=== PATIENT | female | born 1975 | race Caucasian/White ===

== ENCOUNTER 2023-11-05 20:35 | Emergency (ER) | payer BC, SELFPAY ==
[2023-11-05 20:39] VITALS: BP 113/74; PULSE 73; RESP 16; TEMP 36.7; O2SAT 98
--- NOTE | 2023-11-05 21:58 | CRLHL7_ITS ---
For Patients: As a result of the Century Cures Act, medical imaging exams and procedure reports are released immediately into your electronic medical record. You may view this report before your referring provider. If you have questions, please contact your health care provider. Indication: Left mandibular pain and swelling Technique: CT of the neck following 58 mL Isovue 370 IV contrast. Comparison: None Findings: Brain and orbits: Visualized portions demonstrate no acute abnormality. Sinuses and mastoids: Visualized portions demonstrate no acute abnormality. 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 Oral cavity, floor of mouth, and base of tongue: No significant abnormality appreciated. Pharynx: No significant abnormality appreciated. Larynx/hypopharynx: No significant abnormality appreciated. Submandibular and parotid spaces: No significant abnormality appreciated. Thyroid space: No significant abnormality appreciated. Lymph nodes: No gross lymphadenopathy appreciated. Vascular structures: No significant abnormality appreciated. Bones: No significant abnormality appreciated. Upper chest: No significant abnormality appreciated. Impression: No acute abnormality appreciated. Please note that all CT scans at this facility use dose modulation, iterative reconstruction, and/or weight-based dosing when appropriate to reduce radiation dose to as low as reasonably achievable. Dictated by Juan Antonio Hernandez MD @ 11/05/2023 11:11:19 PM (Electronically Signed)
--- NOTE | 2023-11-05 22:00 | ED.GENADULT ---
HPI - General Adult General Chief complaint: Jaw Injury/Pain Stated complaint: L facial poss abscess and pain Time Seen by Provider: 11/05/23 21:38 History of Present Illness HPI narrative: This 47-year-old female comes in reporting pain in her throat and left mandibular and temp pillar mandibular region. She states that she had an abscess in her tonsil about 20 years ago and wonders of some like this is happening again. She did go to a different emergency department yesterday and states that she received an EpiPen and a dose of Xanax. She was discharged with a prescription for clindamycin and prednisone. She states that there were not any studies done otherwise. She has been taking these medicines but states that she is having worsening pain. She arrives here with normal vital signs. Related Data Home Medications ?Medication ?Instructions ?Recorded ?Confirmed No Known Home Medications 11/05/23 11/05/23 Allergies Allergy/AdvReac Type Severity Reaction Status Date / Time amoxicillin Allergy Rash Verified 11/05/23 20:46 doxycycline Allergy Verified 11/05/23 20:46 linezolid Allergy Verified 11/05/23 20:46 Review of Systems Status of ROS: Reports: 10 or more systems reviewed and unremarkable except as noted in History and below Narrative: Constitutional: No fevers, no weight gain or loss. Eyes: No discharge. No vision changes. HENT: No congestion. She reports some pain in her left neck an this extends toward her left ear. Cardiovascular: No chest pain, no palpitations. Respiratory: No shortness of breath, no wheezes, no cough. Gastrointestinal: No abdominal pain, no vomiting, no diarrhea. Genitourinary: No dysuria, no hematuria. Musculoskeletal: Normal range of motion. Skin: No rashes, no pruritis. Neurological: No dizziness, weakness, sensory change, speech change. Endo/Heme/Allergies: No bruising or bleeding. No polydipsia. Pysch: no suicidality, no anxiety, no insomnia. All other systems reviewed and are negative. Exam Narrative: Exam Narrative: Constitutional: Well-developed, well-nourished, no acute distress. HEENT: Normocephalic, atraumatic. Oropharynx appears normal without any sign of tonsillar hypertrophy or abscess formation. Tympanic membranes appear normal bilaterally. Neck: She states that it is harder for her to turn her head due to the pain in the left side of her neck around her ear. There are no palpable abnormalities when I examine her anterior neck. Heart: Regular. No murmurs. Normal rate. Intact distal pulses. Lungs: Clear to auscultation. No chest discomfort. No wheezes, rhonchi, or rales. Abdomen: Normal bowel sounds. Nontender. No rebound tenderness. Genitalia: Deferred. Back: No midline tenderness. Normal range of motion. Extremities: Normal range of motion. No injury. Skin: Intact. No rash. Warm. No erythema or pallor. Neurologic: No altered sensation. No weakness. Alert and oriented. Psychiatric: No suicidality. No anxiety or depression. No insomnia. Nursing notes and vitals signs are reviewed. Const: Vital Signs, click to edit/add: Vital Signs - 24 hr 11/05/23 20:39 Temperature 98.1 F Pulse Rate [Pulse Oximeter] 73 Respiratory Rate 16 Blood Pressure [Ri ght Upper Arm] 113/74 Pulse Oximetry 98 Oxygen Delivery Me thod Room Air Course Vital Signs Vital signs: Initial Vital Signs Temperature 98.1 F 11/05/23 20:39 Temperature Source Temporal Artery Scan 11/05/23 20:39 Pulse Rate 73 11/05/23 20:39 Respiratory Rate 16 11/05/23 20:39 Blood Pressure 113/74 11/05/23 20:39 Blood Pressure Mean 87 11/05/23 20:39 Blood Pressure Position Sitting 11/05/23 20:39 Pulse Oximetry 98 11/05/23 20:39 Oxygen Delivery Method Room Air 11/05/23 20:39 Vital Signs Temperature 98.1 F 11/05/23 20:39 Pulse Rate 73 11/05/23 20:39 Respiratory Rate 16 11/05/23 20:39 Blood Pressure 113/74 11/05/23 20:39 Pulse Oximetry 98 11/05/23 20:39 Oxygen Delivery Method Room Air 11/05/23 20:39 Temperature 98.1 F 11/05/23 20:39 Pulse Rate 73 11/05/23 20:39 Respiratory Rate 16 11/05/23 20:39 Blood Pressure 113/74 11/05/23 20:39 Pulse Oximetry 98 11/05/23 20:39 Oxygen Delivery Method Room Air 11/05/23 20:39 Medical Decision Making MDM Narrative Medical decision making narrative: This patient was at a different emergency room yesterday and was dissatisfied with the care given there. She was started on prednisone and clindamycin but states that there are really no studies done to indicate the need for these treatments. She is having worsening pain in her left neck extending toward her ear as described above. Her exam is quite normal. There does appear to be some anxiety component to her symptoms and I see in her past medical history that she has a history of PTSD. I did discuss lab and imaging options with the patient and she is very interested in having a CT scan to rule out any abnormality. I did order CT scan of her neck with IV contrast. Results of this test will come well after the end of my shift so the remaining ER physician will look after results. Most likely she is okay to be discharged home to continue her current treatments. Discharge Plan Discharge Clinical Impression: Neck pain Prescriptions: No Action No Known Home Medications
--- OUTSIDE RECORDS SUMMARY | 2023-11-05 23:01 | XMS_ITS ---
Author Organization [facility] Address [address] [place] [address] Care Team Providers Care Principal Network Engineer Name Role Phone Unavailable Unavailable Unavailable Surgery Details Not on file Complications Check Surgery Details section. Procedure Estimated Blood Loss Check Surgery Details section. Procedure Findings Check Surgery Details section. Procedure Specimens Taken Check Surgery Details section.
--- OUTSIDE RECORDS SUMMARY | 2023-11-05 23:01 | XMS_ITS | Clinical Summary ---
Author Organization [facility] Address [address] [place] [address] Care Team Providers Care Licensed Psychiatric Technician Name Role Phone Bela Jauregui APRN C.N.P. Primary Care Pro vider Source Comments Patient records contain information from all sites at [facility]. For routine questions regarding patient records, call [phone] during business hours, M-F 8:00 AM - 5:00 PM Central Time. Record requests for emergency care only can be directed to [phone] at any time.[facility] Allergies Active Allergy Reactions Criticality Noted Date Comments Duloxetine Hives (Reselect Reaction) 09/07/2021 Doxycycline Hives (Reselect Reaction) 08/22/2022 Linezolid Other (see comments) 07/22/2023 Father almost from it. Penicillins Hives (Reselect Reaction) 11/11/2008 Medications Medication Sig Dispensed Refills Start Date End Date Status acetaminophen (TYLENOL) 325 mg tablet Take 2 tablets by mouth every 4 (four) hours as needed. 12/08/2008 Active medical cannabis oil inhalation Inhale. THC component: CBD component: Active cyclobenzaprine (FLEXERIL) 10 mg tablet TAKE 1 TABLET (10 MG TOTAL) BY MOUTH 3 (THREE) TIMES A DAY NEEDED FOR MUSCLE SPASMS. 30 tablet 12/06/2022 Active fluticasone propionate (FLONASE) 50 mcg/actuation nasal spray Administer 1 spray into each nostril 2 (two) times a day. 16 g 06/02/2023 Active venlafaxine XR (Effexor XR) 75 mg 24 hr capsule Take 1 capsule (75 mg total) by mouth daily with breakfast. Total dose 112.5mg for two weeks (75mg+37.5mg) for two weeks, then increase 150mg 14 capsule 06/04/2023 Active Additional Information Patient taking differently:75 mg oral Daily with morning meal,On 09/09/23, patient states that she stopped the medications two days ago., Reported on 09/09/2023 buPROPion XL (WELLBUTRIN XL) 150 mg 24 hr tablet Take 1 tablet (150 mg total) by mouth every morning. 30 tablet 2 06/04/2023 Active ondansetron (ZOFRAN) 8 mg tablet Take 1 tablet (8 mg total) by mouth every 8 (eight) hours as needed for nausea or vomiting. 20 tablet 07/22/2023 Active hydrOXYzine (ATARAX) 25 mg tablet 08/06/2023 Active hydrocortisone (HYTONE) 2.5 % cream 08/06/2023 Active diphenhydrAMINE (BENADRYL) 50 mg capsule Take 50 mg by mouth every 6 (six) hours as needed. Active EPINEPHrine 0.3 mg/0.3 mL injection syringe Inject 0.3 mL (0.3 mg total) intramuscularly as needed for anaphylaxis for up to 10 days. Inject into the thigh. 1 each 1 09/09/2023 Active clindamycin (Cleocin) 300 mg capsule Take 1 capsule (300 mg total) by mouth 3 (three) times a day for 7 days. 21 capsule 11/03/2023 4 Active predniSONE (Deltasone) 50 mg tablet Take 1 tablet (50 mg total) by mouth daily for 3 days. 3 tablet 11/03/2023 4 Active Active Problems Problem Noted Date Diagnosed Date Mood Disorder 05/21/2022 Insomnia 04/10/2022 Posttraumatic Stress Disorder Prolonged 07/22/19 21 Fibromyalgia 06/13/2015 Encounters Date Type Department Care Team Description 11/03/2023 3:56 PM CDT - 11/03/2023 7:10 PM CDT [facility] [place] [facility] [address] [place] [phone] Tim Vogt M.D., M.B.A. Reaction Anaphylactic Personal History Discharge Disposition: Home or Self Care 11/03/2023 Nurse Triage Department of Family Medicine in [place], [place] [address] [place] [address] Toyin Blank M.S.N., R.N. Jaw Pain; Facial Pain (/) 10/28/2023 11:59 PM CDT - 10/29/2023 4:40 AM CDT [facility] [place] [facility] [address] [facility] [address] Salty Roque M.D. Pain Chest Atypical (Primary Dx); Cough Unspecified Type Discharge Disposition: Home or Self Care 09/09/2023 11:41 AM CDT - 09/09/2023 6:25 PM CDT [facility] [place] [facility] [address] [place] [address] Judith Darby M.D., M.B.A. Hives (Primary Dx); Swelling Face Discharge Disposition: Home or Self Care from Last 3 Months Immunizations Name Administration Dates Next Due 9vHPV 03/13/2023(Deferred: Other - patient no showed for appt today.),08/08/2022,08/24/2021 HepB Adult (HEPLISAV-B) 09/07/2022,08/08/2022 Influenza, Unspecified 07/22/2023(Deferred: Marcelle ent decision) Td (Adult), adsorbed 09/27/2004 Tdap 07/22/2023(Deferred: Patient decision),07/28/2018 influenza vaccine quad (FLUZONE/FLUARIX) (6 months and older)(PF) 04/25/2022 Family History Medical History Relation Name Comments Arthritis Father Serena Possibly due or early onset due to medications she was on Depression Father Serena Diabetes Father Serena Lost weight so considered pre Sleep apnea Father Serena Thyroid disease Father Serena Mama theough medictions Depression Mother Diabetes Mother Diabetes Paternal Grandmother Tyrone Wadei cecilia fathers side Clotting disorder Sister 1 Yen Depression Sister 1 Yen Obesity Sister 2 Aida Thyroid disease Sister 2 Aida Anesthesia problems Sister 3 [place] Clotting disorder Sister 3 [place] Post knee sx (assumed control related) Obesity Sister 3 [place] Thyroid disease Sister 3 Alexnadria Relation Name Status Comments Father Serena Mother Alive Paternal Grandmother Tyrone Sister 1 Yen Sister 2 Aida Sister 3 Alexandria Social History Tobacco Use Types Packs/Day Years Used Date Smoking Tobacco: Former Cigarettes Q uit: 04/15/2009 Smokeless Tobacco: Never Tobacco Cessation:Counseling Given: Not Answered Comments:Social when I did Alcohol Use Standard Drinks/Week Comments Never 0 (1 standard drink = 0.6 oz pur e alcohol) Humiliation, Afraid, Rape, and Kick questionnair e Answer Date Recorded Within the last year, have y ou been afraid of your partner or ex-partner? Patient declined 03/05/2022 Within the last year, have y ou been humiliated or emotionally abused in other ways by your partner or ex-partner? Patient declined 03/05/2022 Within the last year, have y ou been kicked, hit, slapped, or otherwise physically hurt by your partner or ex-partner? No 03/05/2022 Within the last year, have y ou been raped or forced to have any kind of sexual activity by your partner or ex-partner? No 03/05/2022 Social Connection and Isolat ion Panel [NHANES] Answer Date Recorded In a typical week, how many times do you talk on the phone with family, friends, or neighbors? Once a week 03/05/2022 How often do you get togethe r with friends or relatives? Once a week 03/05/2022 How often do you attend chur or yarsanism services? More than 4 times per year 03/05/2022 Do you belong to any clubs o r organizations such as christian groups, unions, fraternal or athletic groups, or school groups? No 03/05/2022 How often do you attend meet ings of the clubs or organizations you belong to? Never 03/05/2022 Are you , , di vorced, , never , or living with a partner? Living with partner 03/05/2022 AUDIT-C Answer Date Recorded Q1: How often do you have a drink containing alc ohol? Never 03/05/2022 Average Number of Drinks Not on file 022 Frequency of Binge Drinking Not on file 02/14 Overall Financial Resource Strain (CARDIA) Answe r Date Recorded How hard is it for you to pa y for the very basics like food, housing, medical care, and heating? Patient declined 03/10/2023 PHQ-2 Answer Date Recorded PHQ-2 Score 6 06/04/2023 [facility] - Occupational Stress Questionnaire Answer Date Recorded Do you feel stress - tense, restless, nervous, or anxious, or unable to sleep at night because your mind is troubled all the time - these days? Very much 03/05/2022 Exercise Vital Sign Answer Date Recorde d On average, how many days pe r week do you engage in moderate to strenuous exercise (like a brisk walk)? Patient declined On average, how many minutes do you engage in exercise at this level? Patient declined 03/10/2023 Hunger Vital Sign Answer Date Recorded Within the past 12 months, y ou worried that your food would run out before you got the money to buy more. Patient declined Within the past 12 months, t he food you bought just didn't last and you didn't have money to get more. Patient declined PRAPARE - Transportation Answer Date Re corded In the past 12 months, has l ack of transportation kept you from medical appointments or from getting medications? No 02/14 In the past 12 months, has l ack of transportation kept you from meetings, work, or from getting things needed for daily living? No 03/10/2023 Depression Answer Date Recor ded PHQ-9 Total Score (max 27) 18 06/04 Nutrition Answer Date Recorded On average, how many serving s of fruits and vegetables do you eat per day (serving size is equal to 1 cup or approximately the size of a tennis ball)? 3-5 03/10/2023 Dental Answer Date Recorded Dental: Regular Dentist No 08/22/19 22 Employment Answer Date Recorded Employment status Temporarily disabled Housing Stability Answer Date Recorded What is your living situation today? [facility] 03/10/2023 Education Answer Date Recorded What is the highest level of school you have completed or the highest degree you have received? Associate degree: occupational, technical, or vocational program 03/05/2022 Sex and Gender Information Value Date Recorded Sex Assigned at Female 08/18/2021 11:37 AM CDT Gender Identity Female 03/14/2020 12:38 PM [employer] Sexual Orientation Not on file Last Filed Vital Signs Vital Sign Reading Time Taken Comments Blood Pressure 104/64 11/03/2023 6:45 PM CDT Pulse 83 11/03/2023 7:00 PM CDT Temperature 36.7 ??C (98.1 ??F) 11/03/2023 6:00 PM CD T Respiratory Rate 16 11/03/2023 4:36 PM CDT Oxygen Saturation 98% 11/03/2023 7:00 PM CDT Inhaled Oxygen Concentration - - Weight 57 kg (125 lb 10.6 oz) 11/03/2023 4:38 PM CDT Height 157 cm (5' 1.81) 11/03/2023 4:38 PM CDT Body Mass Index 23.12 11/03/2023 4:38 PM CDT Plan of Treatment Upcoming Encounters Date Type Department Care Team (Latest Contact Info) Description 01/07/2024 1:00 PM CDT Comprehensive Visit Department of Allergy and Immunology in [address] [phone] Ilya Barajas M.D. [address] [place] [address] Discharge Disposition: Home or Self Care Health Maintenance Due Date Last Done Comments CT Colonography 1974 Cologuard 1974 Colonoscopy 1974 Colorectal Cancer Screening 1974 FIT 1974 Cervical Cancer Screening 09/07/20222021, 08/24/2021, 08/24/2021, Additional history exists Mammogram 11/03/2023 11/02/2022, 07/0 08/2022, 10/02/2021, Additional history exists Influenza Vaccine (#1) 2024 04/25/2022 COVID-19 Vaccine ( season) 2024 04/25/2022, 05/09/2021, 08/24/2020, Additional history exists Postponed from 12/14/2022 (Patient Refused) Lipid (Cholesterol) Screening 09/29/2025 09/29/2020 Fasting Glucose for Diabetes Screening 10/28/2026 10/29/2023, 09/09/2023, 07/20/2023, Additional history exists DTaP,Tdap,and Td Vaccines (2 - Td or Tdap) 07/28/2028 07/28/2018, 09/27/2004 HIV Screening Completed 08/24/2021, 0304/2018 (Performed elsewhere) Hepatitis B Vaccines Completed 09/07/2022, 08/09/19 23 Depression Screening (Annual PHQ-2) Completed 06/04/2023 Pneumococcal vaccine (0-64 years) Aged Out No longer eligible based on patient's age to complete this topic Procedures Procedure Name Priority Date/Time Associated Diagnosis Comments CRITICAL CARE Routine 11/03/2023 4:27 PM CDT TRYPTASE, S STAT 11/03/2023 4:13 PM CDT TROPONIN T, 2H/6H REFLEX, 5TH GEN, P Timed 10/29/2023 2:32 AM CDT DX CHEST AP OR PA AND LATERAL 2 VIEWS RAD - Semiurgent (Fast; most ED patients; some inpatients) 10/29/2023 1:03 AM CDT TROPONIN T, BASELINE, 5TH GEN, P STAT 10/29/2023 12:12 AM CDT COMPREHENSIVE METABOLIC PANEL, S/P STAT 10/29/2023 12:12 AM CDT CBC WITH DIFFERENTIAL, B STAT 10/29/2023 12:12 AM CDT ECG STAT 10/29/2023 12:[address] CHEST ANGIOGRAM AND PULMONARY ARTERIES WITH IV CONTRAST RAD - Semiurgent (Fast; most ED patients; some inpatients) 09/09/2023 1:41 PM CDT DX CHEST AP OR PA AND LATERAL 2 VIEWS RAD - Semiurgent (Fast; most ED patients; some inpatients) 09/09/2023 12:27 PM CDT D-DIMER, P STAT 09/09/2023 12:08 PM CDT NT-PRO B-TYPE NATRIURETIC PEPTIDE (BNP), S STAT 09/09/2023 12:08 PM CDT TROPONIN T, 5TH GEN, P STAT 09/09/2023 12:08 PM CDT COMPREHENSIVE METABOLIC PANEL, S/P STAT 09/09/2023 12:08 PM CDT CBC WITH DIFFERENTIAL, B STAT 09/09/2023 12:08 PM CDT ECG Routine 09/09/2023 12:07 PM CDT MR BREAST BILATERAL WITHOUT AND WITH IV CONTRAST RAD - Routine (most inpatients and all outpatients) 11/02/2022 4:08 PM CDT Abnormal Mammogram HIV-1/-2 AG AND AB SCREEN, PLASMA Routine 08/24/2021 11:22 AM CDT Screening For Venereal Disease THINPREP W/HPV CO-TEST SCREEN Routine 08/24/2021 11:09 AM CDT Screening For Venereal Disease Pap Smear Examination LIPID PANEL, S Routine 09/29/2020 12:04 PM CDT Screening Lipid from Last 3 Months or Most Recently Relevant to Health Maintenance Results * Critical Care (11/03/2023 4:27 PM CDT) Narrative Tim Vogt M.D., M.B.A. - 11/03/2023 4:27 PM CDT Tim Vogt M.D., M.B.A. ? 11/03/2023 ??4:27 PM Critical Care Performed by: Tim Vogt M.D., M.B.A. Authorized by: Tim Vogt M.D., M.B.A. ?? Critical care provider statement: Critical care total time (minutes): 50 MC Critical care was necessary to treat orprevent imminent or life-threatening deterioration of the following conditions: Anaphylaxis versus angioedema. Critical care was time spent personally by me on the following activities: blood draw for specimens, review of old charts, pulse oximetry, re-evaluation of patient's condition, examination of patient, evaluation of patient's response to treatment and documenting in the patient chart Tim Vogt M.D., M.B.A. PROCEDURE/ MINOR SURGICAL ORDERABLES * Tryptase (11/03/2023 4:13 PM CDT) Tryptase, S 9.1 <11.5 ng/mL 11/05/2023 3:14 PM CDT [facility] Blood (Blood, Venous) 11/03/2023 4:13 PM CDT 11/05/2023 8:56 AM CDT Tim Vogt M.D., M.B.A. LAB BLOOD ADD-ON [facility] [address] [place] [address] [facility] [address] [place] [address] * Troponin T, 2 Hour with 6 Hour Reflex, 5th Gen (10/29/2023 2:32 AM CDT) Troponin T, 2 hr, 5th gen 6 <=10 ng/L 10/29/2023 2:54 AM CDT NPR[facility] 2H Delta -1 ng/L 10/29/2023 2:54 AM CDT NPRG Comment:6 hour collection no t indicated. 2H Delta Interp Not Changing 10/29/2023 2:54 AM CDT NPRG Blood 10/29/2023 2:32 AM CDT 10/29/2023 2:42 AM CDT Soft Results Interface LAB BLOOD TROPONI N [facility] [address] [place] [address], [facility] NPRG [place] [address] [place] [address] * DX Chest AP or PA and Lateral 2 Views (10/29/2023 1:03 AM CDT) Only the most recent of2 resultswithin the time period is included. Anatomical Region Laterality Modality Chest, Thoracic RST LOS, Tho racic ARZ LOS, Thoracic FLA LOS N/A Digital Radiography Impressions 10/29/2023 1:11 AM CDT Comparison 09/09/2023. Negative for acute cardiopulmonary abnormality. Narrative 10/29/2023 1:11 AM CDT EXAM: DX CHEST AP OR PA AND LATERAL 2 VIEWS Procedure Note Fabricio Burns M.D. - 10/29/2023 EXAM: DX CHEST AP OR PA AND LATERAL 2 VIEWS IMPRESSION: Comparison 09/09/2023. Negative for acute cardiopulmonary abnormality. Salty Roque M.D. IMG DIAGNOSTIC IMAGI NG PROCEDURES * Troponin T, Baseline with 2 Hour/6 Hour Reflex Biomarker Panel (10/29/2023 12:12 AM CDT) Troponin T, Baseline, 5th gen 7 <=10 ng/L 10/29/2023 1:08 AM CDT NPRG Blood (Blood, Venous) 10/29/2023 12:12 AM CDT 10/29/2023 12:54 AM CDT Salty Roque M.D. LAB BLOOD TROPONIN [facility] [address] [place] [address], [facility] NPRG [place] [address] [place] [address] * CBC with Differential, Blood (10/29/2023 12:12 AM CDT) Only the most recent of2 resultswithin the time period is included. Hemoglobin 12.9 11.6 - 15.0 g/dL 10/29/2023 1:01 AM CDT NPRG Hematocrit 38.7 35.5 - 44.9 % 10/29/2023 1:01 AM CDT NPRG Erythrocytes 4.25 3.92 - 5.13 x10(12)/L 10/29/2023 1:01 AM CDT NPRG MCV 91.1 78.2 - 97.9 fL 10/29/2023 1:01 AM CDT NPRG RBC Distrib Width 12.3 12.2 - 16.1 % 10/29/2023 1:01 AM CDT NPRG Platelet Count 237 157 - 371 x10(9)/L 10/29/2023 1:01 AM CDT NPRG Leukocytes 7.4 3.4 - 9.6 x10(9)/L 10/29/2023 1:01 AM CDT NPRG Neutrophils 3.83 1.56 - 6.45 x10(9)/L 10/29/2023 1:01 AM CDT NPRG Lymphocytes 2.84 0.95 - 3.07 x10(9)/L 10/29/2023 1:01 AM CDT NPRG Monocytes 0.58 0.26 - 0.81 x10(9)/L 10/29/2023 1:01 AM CDT NPRG Eosinophils 0.12 0.03 - 0.48 x10(9)/L 10/29/2023 1:01 AM CDT NPRG Basophils <0.04 0.01 - 0.08 x10(9)/L 10/29/2023 1:01 AM CDT NPRG Blood (Blood, Venous) 10/29/2023 12:12 AM CDT 10/29/2023 12:54 AM CDT Salty Roque M.D. LAB BLOOD ADD-ON [facility] [address] [place] [address], [place] NPRG [facility] [address] [place] [address] * Comprehensive Metabolic Panel (10/29/2023 12:12 AM CDT) Only the most recent of2 resultswithin the time period is included. Potassium, P 3.9 3.6 - 5.2 mmol/L 10/29/2023 1:13 AM CDT NPRG Sodium, P 141 135 - 145 mmol/L 10/29/2023 1:13 AM CDT NPRG Chloride, P 106 98 - 107 mmol/L 10/29/2023 1:13 AM CDT NPRG Bicarbonate, P 26 22 - 29 mmol/L 10/29/2023 1:13 AM CDT NPRG Anion Gap, P 9 7 - 15 10/29/2023 1:13 AM CDT NPRG BUN (Blood Urea Nitrogen), P 16 6 - 21 mg/dL 10/29/2023 1:13 AM CDT NPRG Creatinine 0.69 0.59 - 1.04 mg/dL 10/29/2023 1:13 AM CDT NPRG Estimated GFR (eGFR) >90 >=60 mL/min/BS A 10/29/2023 1:13 AM CDT NPRG Comment: Estimated GFR calculated using the 2020 CKD_EPI creatinine equation. Calcium, Total, P 9.5 8.6 - 10.0 mg/dL 10/29/2023 1:13 AM CDT NPRG Glucose, P 92 70 - 140 mg/dL 10/29/2023 1:13 AM CDT NPRG Protein, Total, P 6.7 6.3 - 7.9 g/dL 10/29/2023 1:13 AM CDT NPRG Albumin, P 4.3 3.5 - 5.0 g/dL 10/29/2023 1:13 AM CDT NPRG Aspartate Aminotransferase (AST), P 18 8 - 43 U/L 10/29/2023 1:13 AM CDT NPRG Alkaline Phosphatase, P 79 35 - 104 U/L 10/29/2023 1:13 AM CDT NPRG Alanine Aminotransferase (ALT), P 13 7 - 45 U/L 10/29/2023 1:13 AM CDT NPRG Bilirubin, Total, P <0.2 0.0 - 1.2 mg/dL 10/29/2023 1:13 AM CDT NPRG Blood (Blood, Venous) 10/29/2023 12:12 AM CDT 10/29/2023 12:54 AM CDT Salty Roque M.D. LAB BLOOD ADD-ON Performing Organization Address [place]/[facility] Co de Phone Number [facility] [address] [place] [address], [facility] NPRG [facility] [address] [place] [address] * ECG 12 Lead (10/29/2023 12:07 AM CDT) Only the most recent of2 resultswithin the time period is included. Ventricular Rate ECG/Min 68 BPM MUSE [place] Interval 148 ms MUSE QRSD Interval 92 ms MUSE QT Interval 398 ms MUSE QTC Interval 423 ms MUSE P [place]itt 55 degrees MUSE R [place] 25 degrees MUSE T Wave Dewitt 35 degrees MUSE 10/29/2023 12:0 7 AM CDT 10/29/2023 12:12 AM CDT Impressions MUSE - 10/29/2023 12:12 AM CDT Sinus rhythm Low anterior forces Nonspecific ST and T wave abnormality When compared with ECG of 09-Sep-2023 12:07, Anterior forces have decreased Reviewed by OSCAR Pretty Narrative Procedure Note Jose Rich M.D., M.P.H. - 10/29/2023 IMPRESSION: Sinus rhythm Low anterior forces Nonspecific ST and T wave abnormality When compared with ECG of 09-Sep-2023 12:07, Anterior forces have decreased Reviewed by OSCAR Pretty Salty Roque M.D. ECG ORDERABLES Performing Organization Address [facility]/ZIP Co de Phone Number MUSE NA * CT Chest Angiogram and Pulmonary Arteries with IV Contrast (09/09/2023 1:41 PM CDT) Anatomical Region Laterality Modality Chest, Cardiovascular RST LO S, Thoracic ARZ LOS, Thoracic FLA LOS N/A Computed Tomography 09/09/2023 1:38 PM CDT Impressions 09/09/2023 2:11 PM CDT 1. Negative for acute pulmonary embolism. 2. No pneumothorax or suspicious pulmonary consolidation. Narrative 09/09/2023 2:11 PM CDT EXAM: CT CHEST ANGIOGRAM AND PULMONARY ARTERIES WITH IV CONTRAST Including 3D image postprocessing with or without AI assistance. COMPARISON: Chest radiograph same day. FINDINGS: Adequate opacification of the pulmonary arterial tree without evidence of acute pulmonary embolism. Heart size within normal limits. No pleural or pericardial effusion. Thoracic aorta normal diameter. No evidence of mediastinal, hilar, axillary lymphadenopathy on angiographic phase imaging. Minimal gravity dependent atelectasis. No pneumothorax or suspicious pulmonary consolidation. Upper abdomen without acute abnormality on angiographic phase imaging. No acute fracture or destructive osseous abnormality. Procedure Note Scottie Wesley M.D. - 09/09/2023 EXAM: CT CHEST ANGIOGRAM AND PULMONARY ARTERIES WITH IV CONTRAST Including 3D image postprocessing with or without AI assistance. COMPARISON: Chest radiograph same day. FINDINGS: Adequate opacification of the pulmonary arterial tree without evidence ofacute pulmonary embolism. Heart size within normal limits. No pleural or pericardial effusion.Thoracic aorta normal diameter. No evidence of mediastinal, hilar, axillary lymphadenopathy onangiographic phase imaging. Minimal gravity dependent atelectasis. No pneumothorax or suspiciouspulmonary consolidation. Upper abdomen without acute abnormality on angiographic phase imaging. No acute fracture or destructive osseous abnormality. IMPRESSION: 1. Negative for acute pulmonary embolism. 2. No pneumothorax or suspicious pulmonary consolidation. Judith Darby M.D., M.B.A. IMG CT [place] OCEDURES * NT-Pro B-Type Natriuretic Peptide (BNP) (09/09/2023 12:08 PM CDT) NT-Pro BNP 111 <=141 pg/mL 09/09/2023 12:40 PM CDT NPRG Comment: NT-proBNP values less than 300 pg/mL have a 99% negative predictive value for excluding acute congestive heart failure. A cutoff of 1200 pg/mL for patients with an eGFR<60 yields a diagnostic sensitivity and specificity of 89% and 72% for acute congestive heart failure. NT-proBNP values greater than 450 pg/mL are consistent with CHF in adults under 50 years of age. Blood (Blood, Venous) 09/09/2023 12:08 PM CDT 09/09/2023 12:13 PM CDT Judith Darby M.D., M.B.A. LAB BLOOD ADD-ON [facility] [address] [place] [address], [facility] [address] [place] [address] * (ABNORMAL) D-Dimer (09/09/2023 12:08 PM CDT) D-Dimer, P 790(H) <=500 ng/mL FEU 09/09/2023 12:34 PM CDT NPR Comment: ----ADDITIONAL INFORMATION---- D-dimer values less than or equal to 500 ng/mL fibrinogen equivalent units (FEU) may be used in conjunction with clinical pre-test probability to exclude deep vein thrombosis (DVT) and/or pulmonary embolism (PE). Blood (Blood, Venous) 09/09/2023 12:08 PM CDT 09/09/2023 12:13 PM CDT Judith Darby M.D., M.B.A. LAB BLOOD ADD-ON [facility] [address] [place] [address], [facility] [address] [place] [address] * Troponin T, 5th Generation (09/09/2023 12:08 PM CDT) Troponin T, 5th gen <6 <=10 ng/L 09/09/2023 12:40 PM CDT NPRG Blood (Blood, Venous) 09/09/2023 12:08 PM CDT 09/09/2023 12:13 PM CDT Judith Darby M.D., M.B.A. LAB BLOOD ADD-ON [facility] [address] [place] [address], [facility] NPRG [facility] [address] [place] [address] * MR Breast Bilateral without and with IV Contrast (11/02/2022 4:08 PM CDT) Anatomical Region Laterality Modality Breast, Breast Imaging RST L OS, Breast Imaging ARZ LOS, Breast Imaging FLA LOS Bilateral Magnetic Resonance 11/02/2022 4:38 PM CDT Impressions 11/05/2022 8:36 AM CDT No MR findings of malignancy. RECOMMENDATION: ??Annual Screening Mammogram Recommend annual screening mammography. Consider evaluation in the [facility] with Dr. Manjit Hernandez. ASSESSMENT: ??BI-RADS: 2: Benign. Narrative 11/05/2022 8:36 AM CDT EXAM: ??MR BREAST BILATERAL WITHOUT AND WITH IV CONTRAST INDICATION: ??Elevated risk screening HISTORY: ??46-year-old asymptomatic woman with family history of breast cancer. HORMONAL STATUS: ??Premenopausal COMPARISON: ??Mammography and ultrasound 08/26/2015, 10/02/2021, 10/23/2021, 10/17/2022. No previous breast MR. TECHNIQUE: ??Dynamic enhanced protocol using IV contrast administration with T1 and T2-weighted images and CAD image analysis. FIBROGLANDULAR TISSUE: ??d. Extreme fibroglandular tissue. ?? BACKGROUND PARENCHYMAL ENHANCEMENT: ??d. Marked FINDINGS: RIGHT BREAST: ??Scattered small benign cysts. No suspicious mass or enhancement in the right breast. Prominent background parenchymal enhancement. RIGHT AXILLA: ??No right axillary lymphadenopathy. ?? LEFT BREAST: ??Scattered small benign cysts. No suspicious mass or enhancement in the left breast. Prominent background parenchymal enhancement. LEFT AXILLA: ??No left axillary lymphadenopathy. ?? CHEST WALL: ??No internal mammary lymphadenopathy. ?? Procedure Note Bela Nicholson M.D. - 11/05/2022 EXAM: MR BREAST BILATERAL WITHOUT AND WITH IV CONTRAST INDICATION: Elevated risk screening HISTORY: 46-year-old asymptomatic woman with family history of breastcancer. HORMONAL STATUS: Premenopausal COMPARISON: Mammography and ultrasound 08/26/2015, 10/02/2021, 10/23/2021,10/17/2022. No previous breast MR. TECHNIQUE: Dynamic enhanced protocol using IV contrast administrationwith T1 and T2-weighted images and CAD image analysis. FIBROGLANDULAR TISSUE: d. Extreme fibroglandular tissue. BACKGROUND PARENCHYMAL ENHANCEMENT: d. Marked FINDINGS: RIGHT BREAST: Scattered small benign cysts. No suspicious mass orenhancement in the right breast. Prominent background parenchymal enhancement. RIGHT AXILLA: No right axillary lymphadenopathy. LEFT BREAST: Scattered small benign cysts. No suspicious mass orenhancement in the left breast. Prominent background parenchymal enhancement. LEFT AXILLA: No left axillary lymphadenopathy. CHEST WALL: No internal mammary lymphadenopathy. IMPRESSION: No MR findings of malignancy. RECOMMENDATION: Annual Screening Mammogram Recommend annual screening mammography. Consider evaluation in the [facility] with Dr. Manjit Hernandez. ASSESSMENT: BI-RADS: 2: Benign. Bela Jauregui APRN, C.N.P. [facility] [place] P ROCEDURES * HIV-1/-2 Ag and Ab Screen, Plasma (08/24/2021 11:22 AM CDT) HIV Ag/Ab Screen, P Negative Negative 08/25/2021 1:33 PM CDT [facility] Comment: Negative result does not rule out HIV infection. If exposure to HIV infection occurred <14 days ago, contact the laboratory to request addition of HIV-1 RNA detection / quantification test. HIV-1 p24 Ag Screen, P Negative Negative 08/25/2021 1:33 PM CDT [facility] Comment: Negative result does not rule out HIV infection. If exposure to HIV infection occurred <14 days ago, contact the laboratory to request addition of HIV-1 RNA detection / quantification test. HIV-1 Ab Screen, P Negative Negative 2021 1:33 PM CDT [facility] Comment: Negative result does not rule out HIV infection. If exposure to HIV infection occurred <14 days ago, contact the laboratory to request addition of HIV-1 RNA detection / quantification test. HIV-2 Ab Screen, P Negative Negative 2021 1:33 PM CDT [facility] Comment: Negative result does not rule out HIV infection. If exposure to HIV infection occurred <14 days ago, contact the laboratory to request addition of HIV-1 RNA detection / quantification test. Blood (Blood, Venous) 08/24/2021 11:22 AM CDT 08/24/2021 5:50 PM CDT Orquidea Dawn APRN C.N.P., M.S.N. LAB MICROBIOLOGY - BLOOD ORDERABLES [facility] [address] [place] [phone], [facility] [address] [address] * (ABNORMAL) ThinPrep w/HPV Co-Test Screen (08/24/2021 11:09 AM CDT) (A) 08/31/2021 11:33 AM CDT [facility] Report electronically signed by Navin Zheng MD I verify that I have examined all relevant slides/material s for the specimen(s) and rendered or confirmed the diagnosis. (A) 08/31/2021 11:33 AM CDT [facility] Gross Description Received specimen in a ThinPrep vial.(A) 08/31/2021 11:33 AM CDT [facility] Pap Test Source Cervical/Endoce rvical(A) 08/31/2021 11:33 AM CDT [facility] Hormone Therapy/Contracep tives None/Not known(A) 08/31/2021 11:33 AM CDT [facility] Interpretation Cervical/Endoce rvical ??(ThinPrep): Satisfactory for Evaluation Partially obscuring inflammation Epithelial Cell Abnormality Atypical squamous cells of undetermined significance High Risk HPV: ??Positive Positive for High Risk HPV by nucleic acid amplification. Positive for one or more of the following High Risk HPV types: 16, 18, 31, 33, 35, 39, 45, 51, 52, 56, 58, 59, 66, and 68. HPV Type 16: ??Positive HPV Type 18/45: ??Negative (A) 08/31/2021 11:33 AM CDT [facility] Varies (Cervix/Endocerv ix) 08/24/2021 11:09 AM CDT 08/25/2021 6:14 AM CDT Orquidea Dawn APRN, C.N.P., M.S.N. LAB PAP PATHDX ORDERABLES [facility] [address] [place] [address], [facility] [address] [place] [address] * (ABNORMAL) Lipid Panel (09/29/2020 12:04 PM CDT) Cholesterol, Total 205(H) mg/dL 2020 4:14 PM CDT [facility] Comment: ----REFERENCE VALUE---- Desirable: < 200 Borderline high: 200 - 239 High: > or = 240 Triglycerides 88 mg/dL 09/29/2020 4:14 PM CDT [facility] Comment: ----REFERENCE VALUE---- Normal: <150 Borderline high: 150-199 High: 200-499 Very high: > or =500 Cholesterol, HDL 55 >=50 mg/dL 09/30/19 4:14 PM CDT [facility] Calculated LDL 132(H) mg/dL 09/29/2020 4:14 PM CDT [facility] Comment: ----REFERENCE VALUE---- Desirable: <100 Above Desirable: 100-129 Borderline high: 130-159 High: 160-189 Very high: > or =190 Cholesterol, Non-HDL, Calculated 150 mg/dL 09/29/2020 4:14 PM CDT [facility] Comment: ----REFERENCE VALUE---- Desirable: <130 Above Desirable: 130-159 Borderline high: 160-189 High: 190-219 Very high: > or =220 Blood (Blood, Venous) 09/29/2020 12:04 PM CDT 09/29/2020 3:35 PM CDT Bela Jauregui APRN, C.N.P. LAB BLOOD ADD-ON [facility] [address] [place] [address], [place] NPRG [facility] [address] [place] [address] from Last 3 Months or Most Recently Relevant to Health Maintenance Care Teams Licensed Psychiatric Technician Relationship Specialty Start Date End Date Bela Jauregui APRN, C.N.P. [address] [place] [phone] PCP - General Family Medicine 08/11/20
--- OUTSIDE RECORDS SUMMARY | 2023-11-05 23:01 | XMS_ITS | Referral Summary ---
Author Organization [facility] Address [address] [place] [address] Care Team Providers Care Booth Manager Name Role Phone Bela Jauregui APRN C.N.P. Primary Care Pro vider Source Comments Patient records contain information from all sites at [facility]. For routine questions regarding patient records, call [phone] during business hours, M-F 8:00 AM - 5:00 PM Central Time. Record requests for emergency care only can be directed to [phone] at any time.[facility] Encounters Date Type Department Care Team Description 11/03/2023 3:56 PM CDT - 11/03/2023 7:10 PM CDT [facility] [place] [facility] [address] [place] [phone] Tim Vogt M.D., M.B.A. Reaction Anaphylactic Personal History Discharge Disposition: Home or Self Care 11/03/2023 Nurse Triage Department of Family Medicine in [place], [place] [address] [place] [phone] Toyin Blank M.S.N., R.N. Jaw Pain; Facial Pain (/) 10/28/2023 11:59 PM CDT - 10/29/2023 4:40 AM CDT [facility] [place] [facility] [address] [place] [phone] Salty Roque M.D. Pain Chest Atypical (Primary Dx); Cough Unspecified Type Discharge Disposition: Home or Self Care 09/09/2023 11:41 AM CDT - 09/09/2023 6:25 PM CDT [facility] [place] [facility] [address] [facility] [address] Judith Darby M.D., M.B.A. Hives (Primary Dx); Swelling Face Discharge Disposition: Home or Self Care from Last 3 Months Allergies Active Allergy Reactions Criticality Noted Date [...] Stress Disorder Prolonged 07/22/19 21 Fibromyalgia 06/13/2015 Immunizations Name Administration Dates Next Due 9vHPV 03/13/2023(Deferred: Other - patient no showed for appt today.),08/08/2022,08/24/2021 HepB Adult (HEPLISAV-B) 09/07/2022,08/08/2022 Influenza, Unspecified 07/22/2023(Deferred: Marcelle ent decision) Td (Adult), adsorbed 09/27/2004 Tdap 07/22/2023(Deferred: Patient decision),07/28/2018 influenza vaccine quad (FLUZONE/FLUARIX) (6 months and older)(PF) 04/25/2022 Social History Tobacco Use Types Packs/Day Years [...] week 03/05/2022 How often do you attend [facility] or nondenominational services? More than 4 times per year 03/05/2022 Do you belong to any clubs o r organizations such as zoroastrian groups, unions, fraternal or athletic groups, or [...] Answer Date Recorded PHQ-2 Score 6 06/04/2023 [facility] of Occupat ional Health - Occupational Stress Questionnaire Answer Date Recorded [...] Date Recorded Dental: Regular Dentist No 08/22/19 Employment Answer Date Recorded Employment status Temporarily disabled Housing Stability Answer Date Recorded What is your living situation today? I have a [facility] place to live 03/10/2023 Education Answer Date Recorded What is the highest level of school you have completed or the highest degree you have received? Associate degree: occupational, technical, or vocational program 03/05/2022 Sex and Gender Information Value Date Recorded Sex Assigned at Female 08/18/2021 11:37 AM CDT Gender Identity Female 03/14/2020 12:38 PM HOME ORGANIZER Sexual Orientation Not on file Last Filed [...] Visit Department of Allergy and Immunology in [place], [place] [address] [place] [phone] Ilya Barajas M.D. [address] [place] [phone] Discharge Disposition: Home or Self Care Procedures Procedure Name Priority Date/Time Associated Diagnosis [...] 9.1 <11.5 ng/mL 11/05/2023 3:14 PM CDT [facility] Blood (Blood, Venous) 11/03/2023 4:13 PM CDT 11/05/2023 8:56 AM CDT Tim Vogt M.D., M.B.A. LAB BLOOD ADD-ON [facility] [address] [place] [address] [facility] [address] [address] * Troponin T, 2 Hour with 6 [...] Soft Results Interface LAB BLOOD TROPONI N [facility] [address] [place] [address], [facility] NPRG [facility] [address] [place] [address] * DX Chest AP or PA and [...] CDT Salty Roque M.D. LAB BLOOD TROPONIN [facility] [address] [place] [address], [facility] NPRG [facility] [address] [place] [address] * CBC with Differential, Blood (10/29/2023 12:12 [...] CDT Salty Roque M.D. LAB BLOOD ADD-ON [facility] [address] [place] [address], [place] NPRG [facility] [address] [place] [address] * Comprehensive Metabolic Panel (10/29/2023 12:12 AM [...] M.D. LAB BLOOD ADD-ON Performing Organization Address City/[facility] Co de Phone Number [facility] [address] [place] [address], [place] NPRG [facility] [address] [place] [address] * ECG 12 Lead (10/29/2023 12:07 AM CDT) Only the most recent of2 resultswithin the time period is included. Ventricular Rate ECG/Min 68 BPM MUSE MA Interval 148 ms MUSE QRSD Interval 92 ms MUSE QT Interval 398 ms MUSE QTC Interval 423 ms MUSE P [place] 55 degrees MUSE R [place] 25 degrees MUSE T Wave [place] 35 degrees MUSE 10/29/2023 12:0 7 AM [...] Roque M.D. ECG ORDERABLES Performing Organization Address City/[facility]/ZIP Co de Phone Number MUSE NA * [...] consolidation. Judith Darby M.D., M.B.A. IMG CT MA OCEDURES * NT-Pro B-Type Natriuretic Peptide (BNP) [...] Judith Darby M.D., M.B.A. LAB BLOOD ADD-ON [facility] [address] [place] [address], [facility] [address] [place] [address] * (ABNORMAL) D-Dimer (09/09/2023 12:08 PM CDT) D-Dimer, P 790(H) <=500 ng/mL FEU 09/09/2023 12:34 PM CDT [facility] Comment: ----ADDITIONAL INFORMATION---- D-dimer values less than or equal to 500 ng/mL fibrinogen equivalent units (FEU) may be used in conjunction with clinical pre-test probability to exclude deep vein thrombosis (DVT) and/or pulmonary embolism (PE). Blood (Blood, Venous) 09/09/2023 12:08 PM CDT 09/09/2023 12:13 PM CDT Judith Darby M.D., M.B.A. LAB BLOOD ADD-ON [facility] [address] [place] [address], [facility] [address] [place] [address] * Troponin T, 5th Generation (09/09/2023 12:08 PM CDT) Troponin T, 5th gen <6 <=10 ng/L 09/09/2023 12:40 PM CDT [facility] Blood (Blood, Venous) 09/09/2023 12:08 PM CDT 09/09/2023 12:13 PM CDT Judith Darby M.D., M.B.A. LAB BLOOD ADD-ON [facility] [address] [place] [address], [facility] NPRG [facility] [address] [place] [address] * MR Breast Bilateral without and with [...] BI-RADS: 2: Benign. Bela Jauregui APRN, C.N.P. IM MRI P ROCEDURES * HIV-1/-2 Ag and [...] C.N.P., M.S.N. LAB MICROBIOLOGY - BLOOD ORDERABLES [facility] [address] [place] [address], [facility] [place] [address] * (ABNORMAL) ThinPrep w/HPV Co-Test Screen (08/24/2021 [...] 18/45: ??Negative (A) 08/31/2021 11:33 AM CDT [facility] Varies (Cervix/Endocerv ix) 08/24/2021 11:09 AM CDT 08/25/2021 6:14 AM CDT Orquidea Dawn APRN, C.N.P., M.S.N. LAB PAP PATHDX ORDERABLES [facility] [address] [place] [address], [facility] [address] [place] [address] * (ABNORMAL) Lipid Panel (09/29/2020 12:04 PM CDT) Cholesterol, Total 205(H) mg/dL 2020 4:14 PM CDT [facility] Comment: ----REFERENCE VALUE---- Desirable: < 200 Borderline high: 200 - 239 High: > or = 240 Triglycerides 88 mg/dL 09/29/2020 4:14 PM CDT [facility] Comment: ----REFERENCE VALUE---- Normal: <150 Borderline high: 150-199 High: 200-499 Very high: > or =500 Cholesterol, HDL 55 >=50 mg/dL 09/30/19 21 4:14 PM CDT [facility] Calculated LDL 132(H) [...] Bela Jauregui APRN, C.N.P. LAB BLOOD ADD-ON [facility] [address] [place] [address], [place] NPRG [facility] [address] [place] [address] from Last 3 Months or Most Recently Relevant to Health Maintenance Care Teams Booth Manager Relationship Specialty Start Date End Date Bela Jauregui APRN, C.N.P. [address] [place] [phone] PCP - General Family Medicine 08/11/20
--- OUTSIDE RECORDS SUMMARY | 2023-11-05 23:02 | XMS_ITS | Encounter Summary ---
Author Organization [facility] Address [address] [place] [address] Care Team Providers Care Film Or Videotape Editor Name Role Phone Bela Jauregui APRN, C.N.P. Primary Care Pro vider Encounter Details Date Type Department Care Team (Late st Contact Info) Description 07/20/2023 Orders Only Urgent Care, [facility], in [place], [place] [address] [place] [phone] Edna Mccann APRN, C.N.P. [address] [place] [phone] Fatigue (Primary Dx) Social History Tobacco Use Types Packs/Day Years Used Date Smoking Tobacco: Former Cigarettes Q uit: 04/15/2009 Smokeless Tobacco: Never Comments:Social when I did Alcohol Use Standard [...] 03/05/2022 How often do you attend chur ch or yarsanism services? More than 4 times per year 03/05/2022 Do you belong to any clubs o r organizations such as adventist groups, unions, fraternal or athletic groups, or [...] Answer Date Recorded PHQ-2 Score 6 06/04/2023 [facility] of Occupat ional Health - Occupational Stress [...] your living situation today? I have a [facility] place to live 03/10/2023 Education Answer Date Recorded What is the highest level of school you have completed or the highest degree you have received? Associate degree: occupational, technical, or vocational program 03/05/2022 Sex and Gender Information Value Date Recorded Sex Assigned at Female 08/18/2021 11:37 AM CDT Gender Identity Female 03/14/2020 12:38 PM BAT PERSON Sexual Orientation Not on file documented as of this encounter Plan of Treatment Upcoming Encounters Date Type Department Care Team (Latest Contact Info) Description 01/07/2024 1:00 PM CDT Comprehensive Visit Department of Allergy and Immunology in [place], [place] [address] [place] [phone] Ilya Barajas M.D. [facility] [place] [phone] Discharge Disposition: Home or Self Care documented as of this encounter Visit Diagnoses Diagnosis Fatigue- Primary documented in this encounter Additional Health Concerns Infection Onset Date Last Indicated Resolved Time COVID19 Pending 07/20/2023 07/20/2023 07/20/2023 4 :25 PM CDT Assessment Noted Time PHQ-9 Depression Total Score: 18 024 11:33 AM BAT PERSON documented as of this encounter Care Teams Film Or Videotape Editor Relationship Specialty Start Date End Date Bela Jauregui APRN, C.N.P. [address] [place] [phone] PCP - General Family Medicine 08/11/20 documented as of this encounter
--- OUTSIDE RECORDS SUMMARY | 2023-11-05 23:02 | XMS_ITS | Encounter Summary ---
Author Organization [facility] Address [address] [place] [address] Care Team Providers Care Straight Edger Name Role Phone Bela Jauregui APRN, C.NLaPLa Primary Care Pro vider Reason for Referral * Medication Prior Authorization - Closed Specialty Diagnoses / Procedures Referred By Contac t Referred To Contact Judith Darby M.D., M.B.A. [address] [place] [phone] Referral ID Status Reason Start Date Expiration Date Visits Re quested Visits Authorized [id number] Closed 1 1 * Outpatient (Routine) - Authorized Specialty Diagnoses / Procedures Referred By Contac t Referred To Contact Emergency Medicine Diagnoses Judith Yu M.D., M.B.A. [address] [place] [phone] [facility] Referral ID Status Reason Start Date Expiration Date V isits Requested Visits Authorized [id number] Authorized 09/09/2023 03/10/2025 1 1 Reason for Visit * Reason Comments Numbness Patient presents wit h numbness of the lips, which is currently only in the of the left area of the lower lip. Patient also has swelling on the (R) side of her face, which has been occurring intermittently for months. Encounter Details Date Type Department Care Team (Late st Contact Info) Description 09/09/2023 11:41 AM CDT - 09/09/2023 6:25 PM CDT Emergency [facility] [address] [place] [phone] Judith Darby M.D., M.B.A. [address] [place] [phone] Hives (Primary Dx); Swelling Face Discharge Disposition: Home or Self Care Social History Tobacco Use Types Packs/Day Years [...] week 03/05/2022 How often do you attend [facility] or yarsanism services? More than 4 times per year 03/05/2022 Do you belong to any clubs o r organizations such as sabianist groups, unions, fraternal or athletic groups, or [...] Answer Date Recorded PHQ-2 Score 6 06/04/2023 [facility] - Occupational Stress [...] your living situation today? I have a [facility] place to live 03/10/2023 Education Answer Date Recorded What is the highest level of school you have completed or the highest degree you have received? 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 - 09/09/2023 5:59 PM CDT Today you were seen for swelling of your face. I believe that this is due to hives. Fortunately your workup was reassuring here. I have referred you to an logistics account manager. You should receive a phone call to schedule this follow-up appointment. I also recommend that you follow with your primary care provider within the next 1-2 weeks. Continue to use Benadryl at home. I have also sent a prescription to prednisone which you will takefor the next 4 days. Finally I sent a prescription for an EpiPen which you should take if you starthaving swelling of your tongue, difficulty breathing or difficulty swallowing. * Attachments The following attachments cannot be sent through Care Everywhere. * Hives (Samoan) documented in this encounter Medications at Time of Discharge Medication Sig Dispensed Refills Start Date End Date acetaminophen (TYLENOL) 325 mg tablet Take 2 tablets by mouth every 4 (four) hours as needed. 12/08/2008 EPINEPHrine 0.3 mg/0.3 mL injection syringe Inject 0.3 mL (0.3 mg total) intramuscularly as needed for anaphylaxis for up to 10 days. Inject into the thigh. 1 each 1 09/09/2023 medical cannabis oil inhalation Inhale. THC component: CBD component: buPROPion XL (WELLBUTRIN XL) 150 mg 24 hr tablet Take 1 tablet (150 mg total) by mouth every morning. 30 tablet 2 06/04/2023 cyclobenzaprine (FLEXERIL) 10 mg tablet TAKE 1 TABLET (10 MG TOTAL) BY MOUTH 3 (THREE) TIMES A DAY NEEDED FOR MUSCLE SPASMS. 30 tablet 12/06/2022 diphenhydrAMINE (BENADRYL) 50 mg capsule Take 50 mg by mouth every 6 (six) hours as needed. fluticasone propionate (FLONASE) 50 mcg/actuation nasal spray Administer 1 spray into each nostril 2 (two) times a day. 16 g 06/02/2023 hydrocortisone (HYTONE) 2.5 % cream 08/06/2023 hydrOXYzine (ATARAX) 25 mg tablet 08/06/2023 ondansetron (ZOFRAN) 8 mg tablet Take 1 tablet (8 mg total) by mouth every 8 (eight) hours as needed for nausea or vomiting. 20 tablet 07/22/2023 venlafaxine XR (Effexor XR) 75 mg 24 hr capsule Take 1 capsule (75 mg total) by mouth daily with breakfast. Total dose 112.5mg for two weeks (75mg+37.5mg) for two weeks, then increase 150mg 14 capsule 06/04/2023 predniSONE (DELTASONE) 50 mg tablet Take 1 tablet (50 mg total) by mouth daily for 4 days. 4 tablet 09/10/2023 09/14/2023 documented as of this encounter ED Notes * Judith Darby M.D., M.B.A. - 09/09/2023 11:43 AM CDT SUBJECTIVE CHIEF COMPLAINT/REASON FOR VISIT No chief complaint on file. HISTORY OF PRESENT ILLNESS Daily Chen is a 47 y.o. female with history PTSD and fibromyalgia who is presenting with facial swelling and numbness. Unfortunately the patient has been dealing with hives and swelling since May. Initially it was starting on her body but within the last month she is started to have hives and swelling on her face. Where she is swelling migrates. Yesterday she had significant swelling on the left side of her face. She did provide pictures that showed periorbital swelling. That seemed to resolve and then she started to develop swelling on the right side of her face around 430 this morning. When she is developing the swelling she gets a paresthesia. Yesterday it was in the left side and today it was on the right side but is now starting drift back to the left side again. She did try Benadryl this morning but has not seen any relief. She is able to swallow okay right now. She does have occasional shortness of breath but this has been going on for months. She does explainthat she was recently in [place] visiting family and just flew back last week. A couple daysago she had worsening shortness of breath and she has also had intermittent chest pain. Additionally today she is having pain on the right side of her face that feels like an earache. REVIEW OF SYSTEMS Constitutional: Negative for chills and fever. HENT: Positive for facial swelling. Negative for congestion, rhinorrhea, sore throat and trouble swallowing. Facial swelling, post nasal drainage Eyes: Negative for visual disturbance. Respiratory: Positive for cough (on and off) and shortness of breath (exertional for months). Cardiovascular: Positive for chest pain (on and off for months). Gastrointestinal: Positive for nausea and vomiting. Negative for abdominal pain and diarrhea (loosestools). Skin: hives Neurological: Positive for numbness (face). OBJECTIVE Initial Vitals Temperature 09/09/23 1131 36.6 ??C Pulse Rate 09/09/23 1131 76 Heart Rate -- Resp Rate 09/09/23 1131 16 Blood Pressure 09/09/23 1131 116/79 SpO2 09/09/23 1131 100 % Pain Score 09/09/23 1132 5 - Moderate pain PHYSICAL EXAMINATION Constitutional: Female, slightly anxious but not in severe distress HENT: Head: Normocephalic and atraumatic. Nose: Nose normal. Mouth/Throat: Oropharynx is clear and moist. Mucous membranes are moist. Significant swelling on the right side of her face including her periorbital region, cheek and upper lip, left side of the face does not have swelling, there is no erythema Eyes: Conjunctivae are normal. Pupils are equal, round, and reactive to light. Right eye exhibits no discharge. Left eye exhibits no discharge. Cardiovascular: Normal rate and regular rhythm. Pulmonary/Chest: Effort normal. No respiratory distress. She has no wheezes. She has no rhonchi. Musculoskeletal: General: No deformity. Neurological: Alert, no gross neurologic deficit Skin: Skin is warm and dry. Psychiatric: She has a normal mood and affect. ASSESSMENT/PLAN Daily Chen is a 47 y.o. female who is presenting with paresthesia and swelling of her right face. Patient's vital signs are fairly unremarkable. Specifically she was saturating 100% on room air. Physical examination does show swelling along the right side of her face but she appears dino protecting her airway, there is no tongue swelling and she was swallowing without difficulty. Differential diagnosis includes anaphylaxis, allergic reaction, urticaria. As far as her chest pain and shortness of breath this could represent ACS, pulmonary embolus, pneumonia, cardiomegaly. Will do an initial screening test but since it has been going on for some time this may require additional outpatient workup. Patient's workup was fairly unremarkable including a normal troponin, EKG and chest x-ray. She was unable to be ruled out for pulmonary embolus given her recent prolonged travel. Her D-dimer did return elevated so I proceeded with a CT angio. CT angio showed no evidence of pulmonary embolus. Patient was watched for numerous hours in the emergency department and had no worsening of her swelling. She did get another dose of Benadryl. We would multiple conversations about epinephrine but she wished avoid this if possible which I thought was very reasonable given that she has having no worsening of symptoms and had no airway compromise Ultimately the patient felt well and was discharged in stable condition with a referral to Allergy given these persistent hives and swelling. ED Course as of 09/09/232008September 09, 2023 1307 I re-evaluated the patient. She is continuing to have swelling. We talked about doing some cold compress. I also went through her results and the plan to do a CT scan she is agreeable. 1650 Reexamine the patient again and I think she was having some improvement in her swelling at this time. Final Diagnoses: as of 09/09/232008 Hives Swelling Face Judith Darby M.D., M.B.A. 09/09/232009 documented in this encounter Plan of Treatment Upcoming Encounters Date Type Department Care Team (Latest Contact Info) Description 01/07/2024 1:00 PM CDT Comprehensive Visit Department of Allergy and Immunology in [address] [phone] Ilya Barajas M.D. [address] [place] [phone] Discharge Disposition: Home or Self Care Scheduled Referrals Name Type Priority Associated Diagnoses Order Schedule POST ED VISIT Allergy and Immunology Outpatient Referral Routine Hives Expected: 09/09/2023, Expires: 12/09/2024 documented as of this encounter Procedures Procedure Name Priority Date/Time Associated Diagnosis Comments CT CHEST ANGIOGRAM AND PULMONARY ARTERIES WITH IV CONTRAST RAD - Semiurgent (Fast; most ED patients; some inpatients) 09/09/2023 1:41 PM CDT DX CHEST AP OR PA AND LATERAL 2 VIEWS RAD - Semiurgent (Fast; most ED patients; some inpatients) 09/09/2023 12:27 PM CDT NT-PRO B-TYPE NATRIURETIC PEPTIDE (BNP), S STAT 09/09/2023 12:08 PM CDT D-DIMER, P STAT 09/09/2023 12:08 PM CDT CBC WITH DIFFERENTIAL, B STAT 09/09/2023 12:08 PM CDT TROPONIN T, 5TH GEN, P STAT 09/09/2023 12:08 PM CDT COMPREHENSIVE METABOLIC PANEL, S/P STAT 09/09/2023 12:08 PM CDT ECG Routine 09/09/2023 12:07 PM CDT documented in this encounter Results * CT Chest Angiogram and Pulmonary Arteries [...] consolidation. Judith Darby M.D., M.B.A. IMG CT WI OCEDURES * DX Chest AP or PA and Lateral 2 Views (09/09/2023 12:27 PM CDT) Anatomical Region Laterality Modality Chest, Thoracic RST LOS, Tho racic ARZ LOS, Thoracic FLA LOS N/A Digital Radiography Impressions 09/09/2023 12:32 PM CDT No acute airspace disease. Narrative 09/09/2023 12:32 PM CDT EXAM: DX CHEST AP OR PA AND LATERAL 2 VIEWS COMPARISON: 12/25/2021 FINDINGS: The lungs are clear of opacity or effusion. No pneumothorax. Cardiac silhouette is normal. No acute bony abnormality. Procedure Note Balwinder Byrd D.O. - 09/09/2023 EXAM: DX CHEST AP OR PA AND LATERAL 2 VIEWS COMPARISON: 12/25/2021 FINDINGS: The lungs are clear of opacity or effusion. No pneumothorax.Cardiac silhouette is normal. No acute bony abnormality. IMPRESSION: No acute airspace disease. Judith Darby M.D., M.B.A. IMG DIAGN OSTIC IMAGING PROCEDURES * (ABNORMAL) D-Dimer (09/09/2023 12:08 PM CDT) D-Dimer, P 790(H) <=500 ng/mL FEU 09/09/2023 12:34 PM CDT NPRG Comment: ----ADDITIONAL INFORMATION---- D-dimer values less than or equal to 500 ng/mL fibrinogen equivalent units (FEU) may be used in conjunction with clinical pre-test probability to exclude deep vein thrombosis (DVT) and/or pulmonary embolism (PE). Blood (Blood, Venous) 09/09/2023 12:08 PM CDT 09/09/2023 12:13 PM CDT Judith Darby M.D., M.B.A. LAB BLOOD ADD-ON [facility] [address] [place] [address], [facility] NPRG [address] [place] [address] * NT-Pro B-Type Natriuretic Peptide (BNP) (09/09/2023 [...] Judith Darby M.D., M.B.A. LAB BLOOD ADD-ON [facility] [address] [place] [address], [facility] NPRG [address] [place] [address] * Troponin T, 5th Generation (09/09/2023 12:08 PM CDT) Troponin T, 5th gen <6 <=10 ng/L 09/09/2023 12:40 PM CDT NPR Blood (Blood, Venous) 09/09/2023 12:08 PM CDT 09/09/2023 12:13 PM CDT Judith Darby M.D., M.B.A. LAB BLOOD ADD-ON [facility] [address] [place] [address], [place] NPRG [facility] [address] [place] [address] * Comprehensive Metabolic Panel (09/09/2023 12:08 PM CDT) [facility] Signature Potassium, P 4.4 3.6 - 5.2 mmol/L 09/09/2023 12:35 PM CDT NPRG Sodium, P 142 135 - 145 mmol/L 09/09/2023 12:35 PM CDT NPRG Chloride, P 106 98 - 107 mmol/L 09/09/2023 12:35 PM CDT NPRG Bicarbonate, P 27 22 - 29 mmol/L 09/09/2023 12:35 PM CDT NPRG Anion Gap, P 9 7 - 15 09/09/2023 12:35 PM CDT NPRG BUN (Blood Urea Nitrogen), P 11 6 - 21 mg/dL 09/09/2023 12:35 PM CDT NPRG Creatinine 0.74 0.59 - 1.04 mg/dL 09/09/2023 12:35 PM CDT NPRG Estimated GFR (eGFR) >90 >=60 mL/min/BS A 09/09/2023 12:35 PM CDT NPRG Comment: Estimated GFR calculated using the 2020 CKD_EPI creatinine equation. Calcium, Total, P 9.1 8.6 - 10.0 mg/dL 09/09/2023 12:35 PM CDT NPRG Glucose, P 86 70 - 140 mg/dL 09/09/2023 12:35 PM CDT NPRG Protein, Total, P 6.5 6.3 - 7.9 g/dL 09/09/2023 12:35 PM CDT NPRG Albumin, P 4.1 3.5 - 5.0 g/dL 09/09/2023 12:35 PM CDT NPRG Aspartate Aminotransferase (AST), P 16 8 - 43 U/L 09/09/2023 12:35 PM CDT NPRG Alkaline Phosphatase, P 84 35 - 104 U/L 09/09/2023 12:35 PM CDT NPRG Alanine Aminotransferase (ALT), P 26 7 - 45 U/L 09/09/2023 12:35 PM CDT NPRG Bilirubin, Total, P <0.2 0.0 - 1.2 mg/dL 09/09/2023 12:35 PM CDT NPRG Blood (Blood, Venous) 09/09/2023 12:08 PM CDT 09/09/2023 12:13 PM CDT Judith Darby M.D., M.B.A. LAB BLOOD ADD-ON [facility] [address] [place] [address], [facility] NPRG [facility] [address] [place] [address] * (ABNORMAL) CBC with Differential, Blood (09/09/2023 12:08 PM CDT) Hemoglobin 13.2 11.6 - 15.0 g/dL 09/09/2023 12:17 PM CDT NPRG Hematocrit 40.0 35.5 - 44.9 % 09/09/2023 12:17 PM CDT NPRG Erythrocytes 4.33 3.92 - 5.13 x10(12)/L 09/09/2023 12:17 PM CDT NPRG MCV 92.4 78.2 - 97.9 fL 09/09/2023 12:17 PM CDT NPRG RBC Distrib Width 12.1(L) 12.2 - 16.1 % 09/09/2023 12:17 PM CDT NPRG Platelet Count 285 157 - 371 x10(9)/L 09/09/2023 12:17 PM CDT NPRG Leukocytes 6.6 3.4 - 9.6 x10(9)/L 09/09/2023 12:17 PM CDT NPRG Neutrophils 4.35 1.56 - 6.45 x10(9)/L 09/09/2023 12:17 PM CDT NPRG Lymphocytes 1.66 0.95 - 3.07 x10(9)/L 09/09/2023 12:17 PM CDT NPRG Monocytes 0.59 0.26 - 0.81 x10(9)/L 09/09/2023 12:17 PM CDT NPRG Eosinophils <0.04 0.03 - 0.48 x10(9)/L 09/09/2023 12:17 PM CDT NPRG Basophils <0.04 0.01 - 0.08 x10(9)/L 09/09/2023 12:17 PM CDT NPRG Blood (Blood, Venous) 09/09/2023 12:08 PM CDT 09/09/2023 12:13 PM CDT Judith Daryb M.D., M.B.A. LAB BLOOD ADD-ON [facility] [address] [place] [address], [facility] NPRG [facility] [address] [place] [address] * ECG 12 Lead (09/09/2023 12:07 PM CDT) Ventricular Rate ECG/Min 71 BPM MUSE WI Interval 142 ms MUSE QRSD Interval 90 ms MUSE QT Interval 390 ms MUSE QTC Interval 423 ms MUSE P [place] 34 degrees MUSE R [place] 28 degrees MUSE T Wave [place] 28 degrees MUSE 09/09/2023 12:0 7 PM CDT 09/09/2023 12:20 PM CDT Impressions MUSE - 09/09/2023 12:20 PM CDT Normal sinus rhythm Normal ECG When compared with ECG of 25-Dec-2021 22:11, No significant change was found Reviewed by OSCAR Esparza Narrative Procedure Note Thomas Field M.B.B.S. - 09/09/2023 IMPRESSION: Normal sinus rhythm Normal ECG When compared with ECG of 25-Dec-2021 22:11, No significant change was found Reviewed by OSCAR Esparza Judith Darby M.D., M.B.A. ECG ORDER PARISH MUSE NA documented in this encounter Visit Diagnoses Diagnosis Hives- Primary Swelling Face documented in this encounter Administered Medications Inactive Administered Medications - up to 3 most recent administrations Medication Order MAR Action Action Date Dose Rate Site diphenhydrAMINE injection 25 mg (BENADRYL) 25 mg, intravenous, Once, On Sat09/09/23 at 1200, For 1 dose Given 09/09/2023 12:05 PM CDT 25 mg diphenhydrAMINE injection 25 mg (BENADRYL) 25 mg, intravenous, Once, On Sat09/09/23 at 1558, For 1 dose Given 09/09/2023 4:04 PM CDT 25 mg famotidine injection 20 mg (PEPCID) 20 mg, intravenous, Once, On Sat09/09/23 at 1200, For 1 dose, Drug Monitoring Program: Pharmacist to adjust medication dosing based on indication and drug clearance factors. Given 09/09/2023 12:09 PM CDT 20 mg iopromide 370 mg iodine/mL injection 100 mL (ULTRAVIST) 100 mL, intravenous, Once in imaging, contrast, Starting on Sat09/09/23 at 1341, For 1 dose Given 09/09/2023 1:42 PM CDT 80 mL methylPREDNISolone sod succinate (PF) injection 125 mg (SOLU-Medrol) 125 mg, intravenous, Once, On Sat09/09/23 at 1200, For 1 dose, Activate vial to a final concentration of 62.5 mg/mL Given 09/09/2023 12:08 PM CDT 125 mg sodium chloride 0.9 % flush 100 mL 100 mL, intravenous, Once in imaging, line care, for CT Exam, Starting on Sat09/09/23 at 1341, For 1 dose Given 09/09/2023 1:42 PM CDT 100 mL sodium chloride 0.9 % injection 10 mL 10 mL, intravenous, Once in imaging, line care, Starting on Sat09/09/23 at 1341, For 1 dose Given 09/09/2023 1:42 PM CDT 10 mL documented in this encounter Active and Recently Administered Medications Times are shown in CDT. Scheduled Medication Order 09/07/2023 09/08/2023 09/09/2023 diphenhydrAMINE injection 25 mg (BENADRYL) (COMPLETED) 25 mg, intravenous, Once, On Sat09/09/23 at 1200, For 1 dose 1205 (Given - Provid er: Larry Roblero RLaN.) diphenhydrAMINE injection 25 mg (BENADRYL) (COMPLETED) 25 mg, intravenous, Once, On Sat09/09/23 at 1558, For 1 dose 1604 (Given - Provid er: Larry Roblero RLaN.) famotidine injection 20 mg (PEPCID) (COMPLETED) 20 mg, intravenous, Once, On Sat09/09/23 at 1200, For 1 dose, Drug Monitoring Program: Pharmacist to adjust medication dosing based on indication and drug clearance factors. 1209 (Given - Provid er: Larry Roblero R.N.) methylPREDNISolone sod succinate (PF) injection 125 mg (SOLU-Medrol) (COMPLETED) 125 mg, intravenous, Once, On Sat09/09/23 at 1200, For 1 dose, Activate vial to a final concentration of 62.5 mg/mL 1208 (Given - Provid er: Larry Roblero R.N.) PRN Medication Order 09/07/2023 09/08/2023 09/09/2023 iopromide 370 mg iodine/mL injection 100 mL (ULTRAVIST) (COMPLETED) 100 mL, intravenous, Once in imaging, contrast, Starting on Sat09/09/23 at 1341, For 1 dose 1342 (Given - Provid er: Atiya Sidhu.(R)(CT), R.T.(R)) sodium chloride 0.9 % flush 100 mL (COMPLETED) 100 mL, intravenous, Once in imaging, line care, for CT Exam, Starting on Sat09/09/23 at 1341, For 1 dose 1342 (Given - Provid er: Maritza SidhuT.(R)(CT), R.T.(R)) sodium chloride 0.9 % injection 10 mL (COMPLETED) 10 mL, intravenous, Once in imaging, line care, Starting on Sat09/09/23 at 1341, For 1 dose 1342 (Given - Provid er: Atiya Sidhu.(R)(CT), R.T.(R)) documented in this encounter Additional Health Concerns Assessment Noted Time PHQ-9 Depression Total Score: 18 024 11:33 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 [address] [place] [phone] PCP - General Family Medicine 08/11/20 documented as of this encounter
--- OUTSIDE RECORDS SUMMARY | 2023-11-05 23:02 | XMS_ITS | Encounter Summary ---
Author Organization [facility] Address [address] [place] [address] Care Team Providers Care Dynamometer Repairer Name Role Phone Bela Jauregui APRN C.N.P. Primary Care Pro vider Reason for Visit * Reason Comments Hives Pt presents to ED wi th ongoing generalized hives x1 month. Pt has an appointment with dermatology in 1 month but feels she needs symptom relief sooner. Benadryl and Olga-Hives take in the middle of the night. Encounter Details Date Type Department Care Team (Late st Contact Info) Description 08/03/2023 12:55 PM CDT - 08/03/2023 2:36 PM CDT Emergency [facility] [address] [place] [phone] Salty Roque M.D. [facility] [place] [phone] Urticaria (Primary Dx) Discharge Disposition: Home or Self Care Social [...] How often do you attend chur or latter day services? More than 4 times per year 03/05/2022 Do you belong to any clubs o r organizations such as cheondoism groups, unions, fraternal or athletic groups, or [...] Answer Date Recorded PHQ-2 Score 6 06/04/2023 [facility] [place] of Occupat ional Health - Occupational Stress [...] CDT Gender Identity Female 03/14/2020 12:38 PM SERVICE TEAM LEADER Sexual Orientation Not on file documented as of this encounter Last Filed Vital Signs Vital Sign Reading Time Taken Comments Blood Pressure 124/78 08/03/2023 12:58 PM CDT Pulse 79 08/03/2023 12:58 PM CDT Temperature 36.6 ??C (97.9 ??F) 08/03/2023 2:35 PM CD T Respiratory Rate 18 08/03/2023 2:35 PM CDT Oxygen Saturation 100% 08/03/2023 12:58 PM CDT Inhaled Oxygen Concentration - - Weight 57 kg (125 lb 10.6 oz) 08/03/2023 12:59 P M CDT Height - - Body Mass Index 22.98 07/22/2023 3:25 PM CDT documented in this encounter Discharge Instructions * Discharge Instructions* Salty Roque M.D. - 08/03/2023 2:32 PM CDT Start the Zyrtec/cetirizine at 30mg once daily in the morning. Try this for 2 weeks. If this is ineffective, follow up with your PCP and discuss the cyclosporine. I have attached the article to the DC paperwork and to your chart note so your PCP can find it. * Attachments The following attachments cannot be sent through Care Everywhere. * Hives (Nepali) documented in this encounter Medications at Time of Discharge Medication Sig Dispensed Refills Start Date End Date acetaminophen (TYLENOL) 325 mg tablet Take 2 tablets by mouth every 4 (four) hours as needed. 12/08/2008 medical cannabis oil inhalation Inhale. THC component: CBD component: buPROPion XL (WELLBUTRIN XL) 150 mg 24 hr tablet Take 1 tablet (150 mg total) by mouth every morning. 30 tablet 2 06/04/2023 cyclobenzaprine (FLEXERIL) 10 mg tablet TAKE 1 TABLET (10 MG TOTAL) BY MOUTH 3 (THREE) TIMES A DAY NEEDED FOR MUSCLE SPASMS. 30 tablet 12/06/2022 fluticasone propionate (FLONASE) 50 mcg/actuation nasal spray Administer 1 spray into each nostril 2 (two) times a day. 16 g 06/02/2023 ondansetron (ZOFRAN) 8 mg tablet Take 1 tablet (8 mg total) by mouth every 8 (eight) hours as needed for nausea or vomiting. 20 tablet 07/22/2023 venlafaxine XR (Effexor XR) 75 mg 24 hr capsule Take 1 capsule (75 mg total) by mouth daily with breakfast. Total dose 112.5mg for two weeks (75mg+37.5mg) for two weeks, then increase 150mg 14 capsule 06/04/2023 cetirizine (ZyrTEC) 10 mg tablet Take 3 tablets (30 mg total) by mouth daily for 14 days. 08/03/2023 08/17/2023 documented as of this encounter ED Notes * Salty Roque M.D. - 08/03/2023 1:24 PM CDT Images from the original note were not included. Department of Emergency Medicine- [place] 08/03/2023 8:32 PM CDT *Encounter labs and radiology results at the end of this note* Chief Complaint Patient presents with Hives Pt presents to ED with ongoing generalized hives x1 month. Pt has an appointment with dermatology in 1 month but feels she needs symptom relief sooner. Benadryl and Olga-Hives take in the middle of the night. PCP: Bela Jauregui APRN, C.N.P. HPI: Daily Chen is a 47 y.o. woman with a history of fibromyalgia, mood disorder, PTSD, and one month of generalized urticaria. She has been seen several times for this in the last few weeks. She has been treated with antihistamine H1 blockers, H2 blockers, cortical steroids, topical treatments. None of these seemed to have had any effect. She has never had any problems with idiopathic urticaria in the past. No fevers chills nausea vomiting diarrhea. No chest pain or shortness of breath. The lesions are very itchy. Sparing the mucous membranes but covering most of the rest of thekeratinized skin surface, though widely scattered. States at one point she had a large lesion on her back that has now resolved, but she has not sure if it started on her back or not. No wheezing or respiratory symptoms. She has evaluated and eliminated all of the potential culprit such as shampoos, soaps, detergents, no new clothes, etc.. A complete review of systems was obtained and negative except as in the HPI. No alcohol, tobacco, or illicit drugs PHYSICAL EXAMINATION General: Well-appearing in no acute distress. HEENT: Head is normocephalic and atraumatic. Hearing and vision are grossly normal. No scleral icterus, jaundice, or pallor. Neck: Supple, with normal range of motion. Heart: Heart rate is normal and regular Lungs: Breathing at a normal rate, no respiratory distress Abdomen: Nondistended. Skin: Small coin sized urticaria scattered over the majority of the skin surface, though widely scattered. In many areas, particularly the legs some of the urticaria have scabbed over and have been weeping and show evidence of excoriation. Neurologic: GCS 15. Moving all 4 extremities spontaneously. Psychiatric: Normal mood and affect. Differential diagnosis includes idiopathic urticaria, drug reaction/side effect, environmental exposure, pityriasis rosea. MDM: 47-year-old woman presenting with about one month of generalized urticaria refractory to all treatments. She is quite miserable due to the pruritus. I did spend considerable time at bedside discussing potential next steps as she is exhausted most of the 1st and second-line treatment. I was able to find the article below which recommended high-dose antihistamines as a next step, followed by omalizumab for lack of response. She has been taking fexofenadine. As this has been ineffective I recommended switching to a different antihistamine and recommended Zyrtec. She will stopping get some at the pharmacy and try this at a dose of 30 mg daily. I did explain that urticaria are often exceptionally difficult to treat and quite miserable, though not life- threatening. She has no evidence of airway compromise or other serious pathology at this point. Discharge with expectant management. https://www.ncbi.nlm.nih.gov/pmc/articles/HTM9620738/ Final Diagnoses: as of 08/03/232031 Urticaria Vitals: 08/03/23 1258 08/03/23 1259 08/03/23 1435 BP: 124/78 BP Location: Right arm Patient Position: Sitting Pulse: 79 Resp: 20 18 Temp: 36.7 ??C 36.6 ??C TempSrc: Temporal Temporal SpO2: 100% Weight: 57 kg Medications - No data to display Clinical Impression: Final diagnoses: [L50.9] Urticaria Disposition: Discharge ED Prescriptions Medication Sig Dispense Start Date End Date Auth. Provider cetirizine (ZyrTEC) 10 mg tablet Take 3 tablets (30 mg total) by mouth daily for 14 days. -- 08/03/2023 08/17/2023 Salty Roque M.D. Labs Reviewed - No data to display No orders to display Salty Roque M.D. 08/03/232037 documented in this encounter Plan of Treatment Upcoming Encounters Date Type Department Care Team (Latest Contact Info) Description 01/07/2024 1:00 PM CDT Comprehensive Visit Department of Allergy and Immunology in [place], [place] [address] [place] [phone] Ilya Barajas M.D. [address] [place] [phone] Discharge Disposition: Home or Self Care documented as of this encounter Visit Diagnoses Diagnosis Urticaria- Primary documented in this encounter Additional Health Concerns Assessment Noted Time PHQ-9 Depression Total Score: 18 024 11:33 AM SERVICE TEAM LEADER documented as of this encounter Care Teams Dynamometer Repairer Relationship Specialty Start Date End Date Bela Jauregui APRN, C.N.P. [address] [place] [address] PCP - General Family Medicine 08/11/20 documented as of this encounter
--- OUTSIDE RECORDS SUMMARY | 2023-11-05 23:02 | XMS_ITS | Encounter Summary ---
Author Organization [facility] Address [address] [place] [address] Care Team Providers Care Upper Shaper Name Role Phone Bela Jauregui APRN C.N.P. Primary Care Pro vider Reason for Visit * Reason Comments Chest Pain Pt presents with kaila st tightness for a couple of hours. Pt Encounter Details Date Type Department Care Team (Late st Contact Info) Description 10/28/2023 11:59 PM CDT - 10/29/2023 4:40 AM CDT Emergency [place] [facility] [address] [place] [phone] Salty Roque M.D. [address] [place] [phone] Pain Chest Atypical (Primary Dx); Cough Unspecified Type Discharge Disposition: Home or Self Care Social [...] How often do you attend chur or scientology services? More than 4 times per year 03/05/2022 Do you belong to any clubs o r organizations such as confucianism groups, unions, fraternal or athletic groups, or [...] Answer Date Recorded PHQ-2 Score 6 06/04/[address] [facility] [place] of Occupat ional Health - Occupational Stress [...] your living situation today? I have a [facility] place to live 03/10/2023 Education Answer Date Recorded What is the highest level of school you have completed or the highest degree you have received? Associate degree: occupational, technical, or vocational program 03/05/2022 Sex and Gender Information Value Date Recorded Sex Assigned at Female 08/18/2021 11:37 AM CDT Gender Identity Female 03/14/2020 12:38 PM RADIOLOGIST DIAGNOSTIC Sexual Orientation Not on file documented as of this encounter Last Filed Vital Signs Vital Sign Reading Time Taken Comments Blood Pressure 127/81 10/29/2023 4:00 AM CDT Pulse 68 10/29/2023 4:30 AM CDT Temperature 36.5 ??C (97.7 ??F) 10/29/2023 1:00 AM CD T Respiratory Rate 12 10/29/2023 4:30 AM CDT Oxygen Saturation 98% 10/29/2023 4:30 AM CDT Inhaled Oxygen Concentration - - Weight 57.1 kg (125 lb 12.8 oz) 024 12:03 AM CDT Height - - Body Mass Index 23 07/22/2023 3:25 PM CDT documented in this encounter Discharge Instructions * Discharge Instructions* Salty Roque M.D. - 10/29/2023 4:28 AM CDT Continue your Zyrtec in the morning and your Benadryl at night. Plan to follow up with your digital performance analyst as scheduled in December. documented in this encounter Medications at Time [...] weeks, then increase 150mg 14 capsule 06/04/2023 documented as of this encounter ED Notes * Salty Roque M.D. - 10/28/2023 11:58 PM CDT [facility] Department of Emergency Medicine- [place] 10/29/2023 4:44 AM CDT *Encounter labs and radiology results at the end of this note* Chief Complaint Patient presents with Chest Pain Pt presents with chest tightness for a couple of hours. Pt PCP: Bela Jauregui APRN, C.N.P. HPI: Daily Chen is a 47 y.o. woman with a history of PTSD, fibromyalgia, chronic idiopathic urticaria, presenting with an episode of chest tightness and coughing and shortness of breath.She notes that she has been dealing with idiopathic urticaria for about the last six months. This will often involve her face, mouth, or cheek. She feels that more recently she has been having irritation in her throat prompting coughing, but she is unable to clear any mucus. This results in prolonged coughing fits that cause intense tightness in her chest as well as profound anxiety. No recent fevers chills nausea vomiting diarrhea. No dyspnea unless she is coughing. No recent illnesses or sickcontacts. A complete review of systems was obtained and negative except as in the HPI. No alcohol, tobacco, or illicit drugs. PHYSICAL EXAMINATION General: Well-appearing in no acute distress. HEENT: Head is normocephalic and atraumatic. Hearing and vision are grossly normal. No scleral icterus, jaundice, or pallor. Neck: Supple, with normal range of motion. Heart: Heart rate is normal and regular, no murmurs. Lungs: Clear to auscultation bilaterally, no wheezes or rales. Abdomen: Soft, nontender, nondistended. Skin: Warm and well-perfused Neurologic: GCS 15. Moving all 4 extremities spontaneously. Speech clear. Psychiatric: Normal mood and affect. Differential diagnosis includes ACS, pneumonia, upper respiratory infection, costochondritis, pleurisy, GERD, airway urticarial irritation. MDM: 47-year-old woman with the above medical history presenting with intense chest tightness associated with coughing fits that has been more prominent recently. Chest x-ray is clear. Labs are reassuring. No other infectious symptoms. I think this is unlikely pneumonia. No lisinopril so I do not think this is specifically drug related as side effects. She does have mucous membrane urticaria fairly regularly, and she notes that her chest tightness is always associated with coughing. I suspect she has been having urticaria in her trachea and more specifically the nito prompting coughing and the associated chest tightness. No other significant findings on labs or imaging. The patient is comf ortable and at baseline in the emergency department with no significant coughing or other symptoms.Will plan to discharge with expectant management, to continue the regimen prescribed by her fur machine operator, double Zyrtec in the morning and double Benadryl at night. The patient reports that this hasbeen fairly effective in suppressing her urticaria, mucosal or otherwise. Final Diagnoses: as of 10/29/23 0444 Pain Chest Atypical Cough Unspecified Type Vitals: 10/29/23 0300 10/29/23 0330 10/29/23 0400 10/29/23 0430 BP: 106/57 108/78 127/81 BP Location: Patient Position: Pulse: 69 (!) 59 79 68 Resp: 17 16 20 12 Temp: TempSrc: SpO2: 98% 96% 97% 98% Weight: Medications sodium chloride 0.9 % injection 2-10 mL (has no administration in time range) Clinical Impression: Final diagnoses: [R07.89] Pain Chest Atypical [R05.9] Cough Unspecified Type Disposition: Discharge ED Prescriptions None Labs Reviewed CBC WITH DIFFERENTIAL, B Result Value Hemoglobin 12.9 Hematocrit 38.7 Erythrocytes 4.25 MCV 91.1 RBC Distrib Width 12.3 Platelet Count 237 Leukocytes 7.4 Neutrophils 3.83 Lymphocytes 2.84 Monocytes 0.58 Eosinophils 0.12 Basophils <0.04 COMPREHENSIVE METABOLIC PANEL, S/P Potassium, P 3.9 Sodium, P 141 Chloride, P 106 Bicarbonate, P 26 Anion Gap, P 9 BUN (Blood Urea Nitrogen), P 16 Creatinine 0.69 Estimated GFR (eGFR) >90 Calcium, Total, P 9.5 Glucose, P 92 Protein, Total, P 6.7 Albumin, P 4.3 Aspartate Aminotransferase (AST), P 18 Alkaline Phosphatase, P 79 Alanine Aminotransferase (ALT), P 13 Bilirubin, Total, P <0.2 TROPONIN T, BASELINE, 5TH GEN, P Troponin T, Baseline, 5th gen 7 TROPONIN T, 2H/6H REFLEX, 5TH GEN, P Troponin T, 2 hr, 5th gen 6 2H Delta -1 2H Delta Interp Not Changing DX Chest AP or PA and Lateral 2 Views Final Result Comparison 09/09/2023. Negative for acute cardiopulmonary abnormality. Salty Rqoue M.D. 10/29/23 0448 documented in this encounter Plan of Treatment Upcoming Encounters Date Type Department Care Team (Latest Contact Info) Description 01/07/2024 1:00 PM CDT Comprehensive Visit Department of Allergy and Immunology in [place] [address] [place] [phone] Ilya Barajas M.D. [address] [place] [phone] Discharge Disposition: Home or Self Care documented as of this encounter Procedures Procedure Name Priority Date/Time Associated Diagnosis Comments TROPONIN T, 2H/6H REFLEX, 5TH GEN, P Timed 10/29/2023 2:32 AM CDT DX CHEST AP OR PA AND LATERAL 2 VIEWS RAD - Semiurgent (Fast; most ED patients; some inpatients) 10/29/2023 1:03 AM CDT TROPONIN T, BASELINE, 5TH GEN, P STAT 10/29/2023 12:12 AM CDT CBC WITH DIFFERENTIAL, B STAT 10/29/2023 12:12 AM CDT COMPREHENSIVE METABOLIC PANEL, S/P STAT 10/29/2023 12:12 AM CDT ECG STAT 10/29/2023 12:07 AM CDT documented in this encounter Results * Troponin T, 2 Hour with 6 [...] Soft Results Interface LAB BLOOD TROPONI N [facility] [address] [place] [address], [facility] NPRG [facility] [address] [place] [address] * DX Chest AP or PA and Lateral 2 Views (10/29/2023 1:03 AM CDT) Anatomical Region Laterality Modality Chest, Thoracic [...] 09/09/2023. Negative for acute cardiopulmonary abnormality. Salty REYNOSO DIAGNOSTIC IMAGI NG PROCEDURES * Troponin T, Baseline with 2 Hour/6 Hour Reflex Biomarker Panel (10/29/2023 12:12 AM CDT) Troponin T, Baseline, 5th gen 7 <=10 ng/L 10/29/2023 1:08 AM CDT NPRG Blood (Blood, Venous) 10/29/2023 12:12 AM CDT 10/29/2023 12:54 AM CDT Salty Roque M.D. LAB BLOOD TROPONIN [facility] [address] [place] [address], [facility] [address] [place] [address] * Comprehensive Metabolic Panel (10/29/2023 12:12 AM CDT) Potassium, P 3.9 3.6 - 5.2 mmol/L [...] CDT Salty Roque M.D. LAB BLOOD ADD-ON [facility] [address] [place] [address], [facility] [address] [place] [address] * CBC with Differential, Blood (10/29/2023 12:12 AM CDT) Hemoglobin 12.9 11.6 - 15.0 g/dL 10/29/2023 [...] CDT Salty Roque M.D. LAB BLOOD ADD-ON [facility] [address] [place] [address], [facility] NPR[facility] [address] [place] [address] * ECG 12 Lead (10/29/2023 12:07 AM CDT) Ventricular Rate ECG/Min 68 BPM MUSE WY Interval 148 ms MUSE QRSD Interval 92 ms MUSE QT Interval 398 ms MUSE QTC Interval 423 ms MUSE P [place] 55 degrees MUSE R [place] 25 degrees MUSE T Wave [place] 35 degrees MUSE 10/29/2023 12:0 7 AM [...] OSCAR Pretty Salty Roque M.D. ECG ORDERABLES MUSE NA documented in this encounter Visit Diagnoses Diagnosis Pain Chest Atypical- Primary Cough Unspecified Type documented in this encounter Administered Medications Inactive Administered Medications - up to 3 most recent administrations Medication Order MAR Action Action Date Dose Rate Site sodium chloride 0.9 % injection 2-10 mL 2-10 mL, intravenous, As needed, line care, Starting on Sat10/29/23 at 0052 documented in this encounter Active and Recently Administered Medications Times are shown in CDT. PRN Medication Order 10/27/2023 10/28/2023 10/29/2023 sodium chloride 0.9 % injection 2-10 mL(Linked Group 1) 2-10 mL, intravenous, As needed, line care, Starting on Sat10/29/23 at 0052 Linked Groups Order Group 1: Place peripheral IV: No upper extremity site restrictions (COMPLETED) Upper extremity site restriction: No upper extremity site restrictions, Quantity of PIVs requested: One, STAT, Once, On e 10/29/23 at 0052, For 1 occurrence And sodium chloride 0.9 % injection 2-10 mLJump to med 2-10 mL, intravenous, As needed, line care, Starting on Sat10/29/23 at 0052 documented in this encounter Additional Health Concerns Assessment Noted Time PHQ-9 Depression Total Score: 18 024 11:33 AM RADIOLOGIST DIAGNOSTIC documented as of this encounter Care Teams Upper Shaper Relationship Specialty Start Date End Date Bela Jauregui, GUM MAKER, C.N.P. [address] [facility] [place] [phone] PCP - General Family Medicine 08/11/20 documented as of this encounter
--- OUTSIDE RECORDS SUMMARY | 2023-11-05 23:02 | XMS_ITS | Encounter Summary ---
Author Organization [facility] Address [address] [place] [address] Care Team Providers Care Public Health Specialist Name Role Phone Bela Jauregui APRN C.N.PLa Primary Care Pro vider Reason for Referral * Outpatient (Routine) - Authorized Specialty Diagnoses / Procedures Referred By Contac t Referred To Contact Emergency Medicine Diagnoses Reaction Anaphylactic Personal History Tim Vogt M.D., M.B.A. [address] [place] [address] [facility] Region Referral ID Status Reason Start Date Expiration Date V isits Requested Visits Authorized [id number] Authorized 11/03/2023 05/04/2025 1 1 Reason for Visit * Reason Comments Oral Swelling Pt presents with rec urrent facial edema and pain in her left ear and neck. Pt has significant PMH of same sx. Facial edema was severe yesterday, did not use epi-pen. Encounter Details Date Type Department Care Team ([facility] st Contact Info) Description 11/03/2023 3:56 PM CDT - 11/03/2023 7:10 PM CDT Emergency [facility] [address] [place] [address] Tim Vogt M.D., M.B.A. [address] [place] [address] Reaction Anaphylactic Personal History Discharge Disposition: Home or Self Care Social [...] often do you attend [facility] or buddhism services? More than 4 times per year 03/05/2022 Do you belong to any clubs o r organizations such as shinto groups, unions, fraternal or athletic groups, or [...] Answer Date Recorded PHQ-2 Score 6 06/04/2023 [facility] - Occupational Stress Questionnaire Answer Date [...] your living situation today? I have a [facility] place to live 03/10/2023 Education Answer Date Recorded What is the highest level of school you have completed or the highest degree you have received? Associate degree: occupational, technical, or vocational program 03/05/2022 Sex and Gender Information Value Date Recorded Sex Assigned at Female 08/18/2021 11:37 AM CDT Gender Identity Female 03/14/2020 12:38 PM COMMISSION AUDITOR Sexual Orientation Not on file documented as [...] Mass Index 23.12 11/03/2023 4:38 PM CDT documented in this encounter Medications at Time [...] mouth every morning. 30 tablet 2 06/04/2023 clindamycin (Cleocin) 300 mg capsule Take 1 capsule (300 mg total) by mouth 3 (three) times a day for 7 days. 21 capsule 11/03/2023 11/10/2023 cyclobenzaprine (FLEXERIL) 10 mg tablet TAKE 1 [...] for nausea or vomiting. 20 tablet 07/22/2023 predniSONE (Deltasone) 50 mg tablet Take 1 tablet (50 mg total) by mouth daily for 3 days. 3 tablet 11/03/2023 11/06/2023 venlafaxine XR (Effexor XR) 75 mg 24 hr capsule Take 1 capsule (75 mg total) by mouth daily with breakfast. Total dose 112.5mg for two weeks (75mg+37.5mg) for two weeks, then increase 150mg 14 capsule 06/04/2023 documented as of this encounter Procedure Notes * Tim Vogt M.D., M.B.A. - 11/03/2023 4:27 PM CDTAssociated Order(s): Critical Care Procedure Critical Care Performed by: Tim Vogt M.D., M.B.A. Authorized by: Tim Vogt M.D., M.B.A. Critical care provider statement: Critical care total time (minutes): 50 MC Critical care was necessary to treat orprevent imminent or life-threatening deterioration of thefollowing conditions: Anaphylaxis versus angioedema. Critical care was time spent personally by me on the following activities: blood draw for specimens, review of old charts, pulse oximetry, re-evaluation of patient's condition, examination of patient, evaluation of patient's response to treatment and documenting in the patient chart Tim Vogt M.D., M.B.A. 11/03/23 1627 documented in this encounter ED Notes * Tim Vogt M.D., M.B.A. - 11/03/2023 4:27 PM CDT SUBJECTIVE CHIEF COMPLAINT/REASON FOR VISIT Oral Swelling (Pt presents with recurrent facial edema and pain in her left ear and neck. Pt has significant PMH of same sx. Facial edema was severe yesterday, did not use epi-pen. ) HISTORY OF PRESENT ILLNESS The patient presents to the emergency department with concerns for facial swelling, neck discomfortand difficulty swallowing. Of note she has had symptoms consistent with angioedema versus anaphylaxis in the past which have included significant facial and submandibular swelling. At this juncture it is unclear what the causative etiology is. She was roomed evaluated immediately due to the neck swelling, pain and difficulty swallowing. Patient is also very anxious and does have history of anxiety and PTSD. She did show pictures of significant bilateral facial edema including lips face and neckand states that this did occur yesterday but is improved since that time. REVIEW OF SYSTEMS Constitutional: Negative. Negative for fever. HENT: Negative. Eyes: Negative. Respiratory: Negative. Cardiovascular: Negative. Gastrointestinal: Negative. Genitourinary: Negative. Musculoskeletal: Negative. Skin: Negative. Neurological: Negative. Psychiatric/Behavioral: Negative. OBJECTIVE Initial Vitals Temp Pulse Heart Rate Resp BP SpO2 Pain Score PHYSICAL EXAMINATION Constitutional: Nursing note and vitals reviewed. No distress. HENT: Head: Normocephalic and atraumatic. Nose: Nose normal. Minimal to moderate oropharyngeal crowding, no stridor, no tongue swelling, patient does have swelling of the lips and face bilaterally and equal Eyes: Conjunctivae and EOM are normal. Neck: Neck supple. Cardiovascular: Normal rate. Pulses are strong and palpable. Capillary refill: takes less than 3 seconds Fast, regular Pulmonary/Chest: Effort normal. No tachypnea. No respiratory distress. Expiration is no prolonged expiration. Air movement is not decreased. She exhibits no retraction. Abdominal: exhibits no distension. Musculoskeletal: General: Normal range of motion. Cervical back: Neck supple. Neurological: Alert and oriented to person, place, and time. She is not disoriented. Skin: Skin is warm and dry. Psychiatric: Patient extremely anxious, does require some redirection answer questions ASSESSMENT/PLAN Assessment and Plan Differential includes anaphylaxis versus angioedema. Patient has not received formal workup from vegetable handler for these symptoms. Patient was given Xanax due to severe anxiety, EpiPen, Solu-Medrol and Benadryl and observed very closely. I will draw tryptase level. Patient does have allergy follow-up already arranged and EpiPen at home. Update: Patient's swelling has completely resolved- she is tolerating PO well. Patient does wish dino discharged home. She does understand the risk of rebound reaction. She does have EpiPen at home and we did discuss the importance of using this medication with any recurrent symptoms including butnot limited to facial swelling, tongue swelling, difficulty swallowing, wheezing or shortness of breath. She will take a short course of prednisone. I have requested prompt allergy follow-up. At thisjuncture is not clear whether she has angioedema or anaphylaxis. We did discuss this and need for additional workup.. DIFFERENTIAL DIAGNOSES Angioedema, anaphylaxis. PROBLEMS ADDRESSED THIS VISIT Return precautions, home care, EpiPen use. I reviewed the following external records: prior outpatient labs, primary care records, office records and prior outpatient radiology tests. Final Diagnoses: as of 11/03/231811 Reaction Anaphylactic Personal History Tim Vogt M.D., M.B.A. 11/03/23 1632 Tim Vogt M.D., M.B.A. 11/03/23 1847 Tim Vogt M.D., M.B.A. 11/03/23 1848 documented in this encounter Plan of Treatment Upcoming Encounters Date Type Department Care Team (Latest Contact Info) Description 01/07/2024 1:00 PM CDT Comprehensive Visit Department of Allergy and Immunology in [address] [phone] Ilya Barajas M.D. [address] [place] [phone] Discharge Disposition: Home or Self Care Scheduled Referrals Name Type Priority Associated Diagnoses Orde r Schedule POST ED VISIT Allergy and Immunology Outpatient Referral Routine Reaction Anaphylactic Personal History Expected: 11/03/2023, Expires: 02/02/2025 documented as of this encounter Procedures Procedure Name Priority Date/Time Associated Diagnosis Comments CRITICAL CARE Routine 11/03/2023 4:27 PM CDT TRYPTASE, S STAT 11/03/2023 4:13 PM CDT documented in this encounter Results * Critical Care (11/03/2023 4:27 PM [...] 9.1 <11.5 ng/mL 11/05/2023 3:14 PM CDT [facility] Blood (Blood, Venous) 11/03/2023 4:13 PM CDT 11/05/2023 8:56 AM CDT Tim Vogt M.D., M.B.A. LAB BLOOD ADD-ON [facility] [address] [place] [address] [facility] [address] [place] [address] documented in this encounter Visit Diagnoses Diagnosis Reaction Anaphylactic Personal History documented in this encounter Administered Medications Inactive Administered Medications - up to 3 most recent administrations Medication Order MAR Action Action Date Dose Rate Site ALPRAZolam (Xanax) 1 mg tablet - ADS Override Pull Starting on 11/03/23 at 1601, For 1 dose, Created by cabinet override ALPRAZolam tablet 1 mg (Xanax) 1 mg, oral, Once, On 11/03/23 at 1603, For 1 dose Given 11/03/2023 4:05 PM CDT 1 mg diphenhydrAMINE injection 50 mg (BenadryL) 50 mg, intravenous, Once, On 11/03/23 at 1556, For 1 dose Given 11/03/2023 4:17 PM CDT 50 mg EPINEPHrine 0.3 mg/0.3 mL injection - ADS Override Pull Starting on 11/03/23 at 1600, For 1 dose, Created by cabinet override EPINEPHrine 0.3 mg/0.3 mL injection 0.3 mg 0.3 mg, intramuscular, Once, On 11/03/23 at 1605, For 1 dose Given 11/03/2023 4:10 PM CDT 0.3 mg Right Deltoid ketorolac injection 15 mg (ToradoL) 15 mg, intravenous, Once, On 11/03/23 at 1738, For 1 dose, Adult IV push rate: Over 15 seconds. Peds IV push rate: Over 1 minute. Doses > 15 mg IV/IM are discouraged due to lack of additional analgesic benefit. Given 11/03/2023 6:01 PM CDT 15 mg methylPREDNISolone sod succinate (PF) injection 125 mg (SOLU-MedroL) 125 mg, intravenous, Once, On 11/03/23 at 1556, For 1 dose, Activate vial to a final concentration of 62.5 mg/mL Given 11/03/2023 4:15 PM CDT 125 mg sodium chloride 0.9 % injection 2-10 mL 2-10 mL, intravenous, As needed, line care, Starting on 11/03/23 at 1555 Given 11/03/2023 6:01 PM CDT 10 mL Given 11/03/2023 4:24 PM CDT 10 mL Given 11/03/2023 4:18 PM CDT 10 mL documented in this encounter Active and Recently Administered Medications Times are shown in CDT. Scheduled Medication Order 11/01/2023 11/02/2023 11/03/2023 ALPRAZolam tablet 1 mg (Xanax) (COMPLETED) 1 mg, oral, Once, On 11/03/23 at 1603, For 1 dose 1605 (Given - Provid er: Hamida Barker.N.) diphenhydrAMINE injection 50 mg (BenadryL) (COMPLETED) 50 mg, intravenous, Once, On 11/03/23 at 1556, For 1 dose 1617 (Given - Provid er: Kacey Clay R.N.) EPINEPHrine 0.3 mg/0.3 mL injection 0.3 mg (COMPLETED) 0.3 mg, intramuscular, Once, On 11/03/23 at 1605, For 1 dose 1610 (Given - Provid er: Kacey Clay R.N.) ketorolac injection 15 mg (ToradoL) (COMPLETED) 15 mg, intravenous, Once, On 11/03/23 at 1738, For 1 dose, Adult IV push rate: Over 15 seconds. Peds IV push rate: Over 1 minute. Doses > 15 mg IV/IM are discouraged due to lack of additional analgesic benefit. 1801 (Given - Provid er: Kacey Clay, R.N.) methylPREDNISolone sod succinate (PF) injection 125 mg (SOLU-MedroL) (COMPLETED) 125 mg, intravenous, Once, On 11/03/23 at 1556, For 1 dose, Activate vial to a final concentration of 62.5 mg/mL 1615 (Given - Provid er: Maritza BarkerN.) PRN Medication Order 11/01/2023 11/02/2023 11/03/2023 sodium chloride 0.9 % injection 2-10 mL(Linked Group 1) 2-10 mL, intravenous, As needed, line care, Starting on 11/03/23 at 1555 1618 (Given - Provid er: Hamida Barker.N.)1624 (Given - Provider: Kacey Clay R.N.)1801 (Given - Provider: Kacey Clay R.N.) Linked Groups Order Group 1: Place peripheral IV: No upper extremity site restrictions (COMPLETED) Upper extremity site restriction: No upper extremity site restrictions, Quantity of PIVs requested: One, STAT, Once, On 11/03/23 at 1556, For 1 occurrence And sodium chloride 0.9 % injection 2-10 mLJump to med 2-10 mL, intravenous, As needed, line care, Starting on 11/03/23 at 1555 documented in this encounter Additional Health Concerns Assessment Noted Time PHQ-9 Depression Total Score: 18 024 11:33 AM COMMISSION AUDITOR documented as of this encounter Care Teams Public Health Specialist Relationship Specialty Start Date End Date Bela Jauregui APRN, C.N.P. [address] [place] [phone] PCP - General Family Medicine 08/11/20 documented as of this encounter
--- OUTSIDE RECORDS SUMMARY | 2023-11-05 23:02 | XMS_ITS | Encounter Summary ---
Author Organization [facility] Address [address] [place] [address] Care Team Providers Care Hook Up Driver Name Role Phone Bela Jauregui APRN, C.N.P. Primary Care Pro vider Reason for Visit * Reason Onset Date Comments Jaw Pain 11/03/2023 Facial Pain 11/03/2023 Encounter Details Date Type Department Care Team (Late st Contact Info) Description 11/03/2023 Nurse Triage Department of Family Medicine in [place] [address] [place] [phone] Toyin Blank, M.S.N., R.N. Jaw Pain; Facial Pain (/) Social History Tobacco Use Types Packs/Day Years [...] often do you attend chur ch or worship services? More than 4 times per year 03/05/2022 Do you belong to any clubs o r organizations such as hoahaoism groups, unions, fraternal or athletic groups, or [...] Answer Date Recorded PHQ-2 Score 6 06/04/2023 [facility] - Occupational Stress [...] your living situation today? I have a [facility] place to live 03/10/2023 Education Answer Date Recorded What is the highest level of school you have completed or the highest degree you have received? Associate degree: occupational, technical, or vocational program 03/05/2022 Sex and Gender Information Value Date Recorded Sex Assigned at Female 08/18/2021 11:37 AM CDT Gender Identity Female 03/14/2020 12:38 PM MEDIA RECONCILIATION SPECIALIST Sexual Orientation Not on file documented as of this encounter Miscellaneous Notes * Telephone Encounter - Toyin Blank M.S.N., R.N. - 11/03/2023 2:35 PM CDT Chief Complaint / Reason for Call Patient is a 47 y.o. female calling regarding Jaw Pain and Facial Pain (/). Assessment Concern: Patient reports she is having having hives, facial swelling,dry cough, She reports the left side haw and gums painful and into ear. She rates the pain at 6-7/10 She reports there is a triangle of pain , chin and jaw, to ear and down to left tessa e of throat . The cough becomes more frequent during conversation. Her voice becomes hoarse during conversation. She reports she has hives andfacial swelling . She feels like her face is starting to swell again Present for: 2-3 cough, more recently jaw, ear and throat pain Home cares tried: [facility] , Calling to request: advice The recommended disposition is Go to ED Now (or PCP Triage). Patient instructed to call EMS 911 if she did not have a ride. She will decide, She does have an epi pen. Reason for Disposition Patient sounds very sick or weak to the triager Protocols used: Face [id number] Care Advice Patient/Caregiver understands and will follow care advice?: Yes, able to teach back Face [id number] Nurse Toyin Magallanes Nov 03, 2023 02:47 PM Care Advice GO TO ED NOW (OR PCP TRIAGE): * IF NO PCP (PRIMARY CARE PROVIDER) SECOND-LEVEL TRIAGE: You need to be seen within the next hour. Go to the ED/UCC at Hospital. Leave as soon as you can. * IF PCP SECOND-LEVEL TRIAGE REQUIRED: You may need to be seen. Your doctor (or ROLLS MILL OPERATOR/PA) will want totalk with you to decide what's best. I'll page the provider on-call now. If you haven't heard from the provider (or me) within 30 minutes, go directly to the ED/UCC at Hospital. ANOTHER ADULT SHOULD DRIVE: * It is better and safer if another adult drives instead of you. documented in this encounter Plan of Treatment Upcoming Encounters Date Type Department Care Team (Latest Contact Info) Description 01/07/2024 1:00 PM CDT Comprehensive Visit Department of Allergy and Immunology in [place], [place] [address] [place] [phone] Ilya Barajas M.D. [facility] [place] [phone] Discharge Disposition: Home or Self Care documented as of this encounter Visit Diagnoses Not on filedocumented in this encounter Additional Health Concerns Assessment Noted Time PHQ-9 Depression Total Score: 18 024 11:33 AM MEDIA RECONCILIATION SPECIALIST documented as of this encounter Care Teams Hook Up Driver Relationship Specialty Start Date End Date Bela Jauregui APRN, C.N.P. [address] [place] [phone] PCP - General Family Medicine 08/11/20 documented as of this encounter
[2023-11-05 23:34] VITALS: BP 118/68; PULSE 78; RESP 16; TEMP 36.6; O2SAT 98
== END 2023-11-05 23:37 | disposition home or self-care (01) ==
PROVIDERS: Emergency Provider Emergency Medicine Emergency Medical Services
DX: M54.2 Cervicalgia (principal)
CPT/HCPCS: 70491; 99283; 99284; Q9967

== ENCOUNTER 2024-08-27 18:05 | Emergency (ER) | payer BC, SELFPAY ==
--- OUTSIDE RECORDS SUMMARY | 2024-08-27 18:09 | XMS_ITS | Encounter Summary ---
Author Organization [facility] Address [address] [place] [address] Care Team Providers Care Route Delivery Supervisor Name Role Phone Bela Jauregui APRN, C.NJacquelin Primary Care Pro vider Reason for Referral * Outpatient (Routine) - Authorized Specialty Diagnoses / Procedures Referred By Linnea freeman Referred To Contact Obstetrics and Gynecology Xochitl Berg M.D. [address] [place] [phone] Phone: tel: fax: [facility] Referral ID Status Reason Start Date Expiration Date V isits Requested Visits Authorized [id number] Authorized 07/23/2024 01/22/2026 1 1 Reason for Visit * Outpatient (Routine) - Closed Specialty Diagnoses / Procedures Referred By Linnea freeman Referred To Contact Obstetrics and Gynecology Xochitl Berg M.D. [address] [place] [phone] Phone: tel: fax: [facility] Referral ID Status Reason Start Date Expiration Date Visits Re quested Visits Authorized [id number] Closed 07/14/2024 01/13/2026 1 1 Encounter Details Date Type Department Care Team (Latest Contact Info) Description 07/23/2024 3:45 PM CDT Virtual Visit Department of Obstetrics and Gynecology in [place], [place] [address] [place] [phone] Xochitl Berg M.D. [address] [place] [phone] Lesion Severe Squamous Intraepithelial Cervix (Severe Dysplasia) (Primary Dx) Discharge Disposition: Home or Self Care Social History Tobacco Use Types Packs/Day Years Used Date Smoking Tobacco: Never Cigarettes Qu it: 04/15/2004 Passive Smoke Exposure: Yes Smokeless Tobacco: Never Comments:I was a social smok er foe about 2 years Alcohol Use Standard Drinks/Week Comments Not Currently 2 (1 standard drink = 0.6 oz pur e alcohol) Occassionally [facility] Utilities Answer Date Recorded In the past 12 months has e [employer], gas, oil, or water [employer] threatened to shut off services in your home? No 04/16/2024 Humiliation, Afraid, Rape, and Kick questionnair e [...] often do you attend chur ch or restorationist services? More than 4 times per year 03/05/2022 Do you belong to any clubs o r organizations such as quaker groups, unions, fraternal or athletic groups, or [...] 03/10/2023 PHQ-2 Answer Date Recorded PHQ-2 Score 2 04/28/2024 [facility] - Occupational Stress Questionnaire Answer Date [...] to strenuous exercise (like a brisk walk)? 7 days On average, how many minutes do you engage in exercise at this level? Patient declined 04/16/2024 Hunger Vital Sign Answer Date Recorded Within the past 12 months, y ou worried that your food would run out before you got the money to buy more. Never true 04/16/19 25 Within the past 12 months, t he food you bought just didn't last and you didn't have money to get more. Never true 04/16/2024 PRAPARE - Transportation Answer Date Re corded In the past 12 months, has l ack of transportation kept you from medical appointments or from getting medications? No 05/2024 In the past 12 months, has l ack of transportation kept you from meetings, work, or from getting things needed for daily living? No 04/16/2024 Depression Answer Date Recor ded PHQ-9 Total Score (max 27) 18 04/28 Nutrition Answer Date Recorded On average, how many serving s of fruits and vegetables do you eat per day (serving size is equal to 1 cup or approximately the size of a tennis ball)? 0-2 04/16/2024 Dental Answer Date Recorded Dental: Regular Dentist No 08/22/19 Employment Answer Date Recorded Employment status Temporarily disabled Housing Stability Answer Date Recorded What is your living situation today? I [address] a [facility] place to live 04/16/2024 Education Answer Date Recorded What is the highest level of school you have completed or the highest degree you have received? Associate degree: occupational, technical, or vocational program 03/05/2022 Comments No Sex and Gender Information Value Date Recorded Sex Assigned at Female 08/18/2021 11:37 AM CDT Legal Sex Female 9:05 PM WIRELESS WATCHER Gender Identity Female 03/14/2020 12:38 PM WIRELESS WATCHER Sexual Orientation Not on file documented as of this encounter Progress Notes * Xochitl Berg M.D. - 07/23/2024 3:45 PM CDT Phone call discussion of pathology results status post LEEP procedure. 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 Message was sent to pathology in regards to margins. Additional, unoriented fragments were taken laterally to the initial LEEP specimen. In either scenario, the margins were cauterized. Would recommend repeat co-testing in 6 months. If normal, would then recommend annual surveillance for 3 years prior to spacing Paps out. If this were abnormal, discussed potential for repeat colposcopy or LEEP. Patient is doing well without any concerning vaginal symptoms today. She has noted some left side pain intermittently but feels as though this may be unrelated to her p rocedure. No fevers or chills. Tolerating regular diet. She will reach out with any concerns. Request placed for Co testing in 6 months. documented in this encounter Plan of Treatment Upcoming Encounters Date Type Department Care Team (Latest Contact Info) Description 09/03/2024 9:00 AM CDT Infusion Department of Allergy and Immunology in [place], [place] [address] [place] [phone] Ilya Barajas M.D. [facility] [place] [phone] Discharge Disposition: Home or Self Care 09/08/2024 2:30 PM CDT Comprehensive Visit Department of Neurology in [address] [phone] Ang Sommer M.B.BLaS. [address] [place] [phone] Discharge Disposition: Home or Self Care 10/01/2024 9:00 AM CDT Infusion Department of Allergy and Immunology in [place] [address] [place] [phone] Ilya Barajas M.D. [address] [place] [phone] Discharge Disposition: Home or Self Care 10/29/2024 9:00 AM CDT Infusion Department of Allergy and Immunology in [place] [address] [place] [phone] Ilya Barajas M.D. [address] [place] [phone] Discharge Disposition: Home or Self Care 01/22/2025 2:30 PM CDT Office Visit Department of Obstetrics and Gynecology in [address] [phone] Xochitl Berg M.D. [address] [place] [phone] Scheduled Referrals Name Type Priority Associated Diagnoses Order Schedule Obstetrics and Gynecology office visit (clinic) Outpatient Referral Routine Expected: 01/22/2025, Expires: 10/22/2025 documented as of this encounter Visit Diagnoses Diagnosis Lesion Severe Squamous Intraepithelial Cervix (Severe Dysplasia)- Primary documented in this encounter Additional Health Concerns Assessment Noted Time PHQ-9 Depression Total Score: 18 025 10:50 AM WIRELESS WATCHER documented as of this encounter Care Teams Route Delivery Supervisor Relationship Specialty Start Date End Date Bela Jauregui APRN, C.N.P. [address] [place] [phone] PCP - General Family Medicine 08/11/20 documented as of this encounter
--- OUTSIDE RECORDS SUMMARY | 2024-08-27 18:09 | XMS_ITS | Encounter Summary ---
Author Organization [facility] Address [address] [place] [address] Care Team Providers Care Charge Entry Name Role Phone Bela Jauregui APRN, C.N.P. Primary Care Pro vider Reason for Visit * Reason Comments Laceration Patient presents wit h laceration to her right middle finger when she hit it on a sculpture at her house. Encounter Details Date Type Department Care Team (Late st Contact Info) Description 07/27/2024 12:26 PM CDT - 07/27/2024 2:03 PM CDT Emergency [facility] [address] [place] [phone] Xochitl Eckert APRN, C.N.P., M.S.N. [address] [place] [phone] Unspecified Open Wound Right Middle Finger Without Damage To Nail Initial (Primary Dx) Discharge Disposition: Home or Self Care Social History Tobacco Use Types Packs/Day Years Used Date Smoking Tobacco: Never Cigarettes Qu it: 04/15/2004 Passive Smoke Exposure: Yes Smokeless Tobacco: Never Comments:I was a social smok er foe about 2 years Alcohol Use Standard Drinks/Week Comments Not Currently 2 (1 standard drink = 0.6 oz pur e alcohol) Occassionally [facility] Utilities Answer Date Recorded In the past 12 months has [employer], gas, oil, or water company threatened to shut off services in your [...] often do you attend chur ch or sabianist services? More than 4 times per year 03/05/2022 Do you belong to any clubs o r organizations such as druze groups, unions, fraternal or athletic groups, or [...] Answer Date Recorded PHQ-2 Score 2 04/28/2024 [facility] - Occupational Stress [...] your living situation today? I have a [facility] place to live 04/16/2024 Education Answer Date Recorded What is the highest level of school you have completed or the highest degree you have received? Associate degree: occupational, technical, or vocational program 03/05/2022 Comments No Sex and Gender Information Value Date Recorded Sex Assigned at Female 08/18/2021 11:37 AM CDT Legal Sex Female 9:05 PM DISPLAY ARTIST Gender Identity Female 03/14/2020 12:38 PM DISPLAY ARTIST Sexual Orientation Not on file documented as of this encounter Last Filed Vital Signs Vital Sign Reading Time Taken Comments Blood Pressure 135/92 07/27/2024 11:52 AM CDT Pulse 87 07/27/2024 11:52 AM CDT Temperature 37.6 C (99.7 F) 07/27/2024 11:52 AM CDT Respiratory Rate 18 07/27/2024 11:52 AM CDT Oxygen Saturation 100% 07/27/2024 11:52 AM CDT Inhaled Oxygen Concentration - - Weight 56.3 kg (124 lb 1.6 oz) 07/27/2024 11:57 AM CDT Height 167.6 cm (5' 6) 07/27/2024 11:57 AM CDT Body Mass Index 20.03 07/27/2024 11:57 AM CDT documented in this encounter Medications at Time of Discharge acetaminophen (TYLENOL) 325 mg tablet Take 2 tablets by mouth every 4 (four) hours as needed. 9 acetaminophen (TylenoL) 500 mg tablet Take 2 tablets (1,000 mg total) by mouth every 6 (six) hours as needed for pain. Alternate with ibuprofen every 3 hours. Do not exceed 4000 mg or 4 g in 24 hours. 60 tablet 5 cannabidiol, CBD, (CANNABIDIOL ORAL) Inhale. cetirizine (ZyrTEC) 10 mg tablet Take 10 mg by mouth daily as needed. clobetasoL (Temovate) 0.05 % ointmentIndications :Pompholyx Apply 1 Application topically daily as needed (hand rash). Apply to hand rash. 30 g 2 4 diphenhydrAMINE (BENADRYL) 50 mg capsule Take 50 mg by mouth every 6 (six) hours as needed. EPINEPHrine 0.3 mg/0.3 mL injection syringeIndications: Urticaria Idiopathic Inject 0.3 mL (0.3 mg total) intramuscularly as needed for anaphylaxis. Inject into thigh. 1 each 3 4 fluticasone furoate (FLONASE SENSIMIST NASAL) Administer 2 sprays into nostril(s) daily. ibuprofen 600 mg tablet Take 1 tablet (600 mg total) by mouth every 6 (six) hours as needed for pain. Alternate with acetaminophen every 3 hours. 30 tablet 5 medical cannabis oil inhalation Inhale. THC component: CBD component: multivitamin-adult (multivitamin with iron-minerals) 9 mg iron/15 mL liquid 15 mL daily. xaodpdetaifs-yhwf-R A 18-400 mg-mcg tablet Take 1 tablet by mouth daily. Once every other day ondansetron ODT (Zofran-ODT) 4 mg disintegrating tablet Dissolve 1 tablet (4 mg total) in the mouth every 8 (eight) hours as needed for nausea or vomiting. 20 tablet documented as of this encounter Progress Notes * Xochitl Eckert APRN, C.N.P., M.S.N. - 07/27/2024 1:46 PM CDT SUBJECTIVE CHIEF COMPLAINT / REASON FOR VISIT Laceration (Patient presents with laceration to her right middle finger when she hit it on a sculpture at her house. ) HISTORY OF PRESENT ILLNESS Daily Chen is a 48 y.o. female who presents for evaluation of a laceration to her right middle finger. The patient states she had a scope sure in her house which she was restoring and ended up bumping it earlier today. She did bleed quite a bit but got it to stop. She states she has nonumbness or tingling. She has a history of PTSD and states that pain causes her a lot of anxiety. Given this she is concerned about it tetanus vaccination today. Her last tetanus vaccine was 5 years ago this month. The patient's social history, problem list, medications and allergies were reviewed in the electronic medical record. REVIEW OF SYSTEMS A brief review of systems was negative except for that mentioned in the history of present of illness. The patient's social history, medical history, problem list, medications and allergies were reviewed in the electronic medical record. OBJECTIVE VITAL SIGNS BP (!) 135/92 (BP Location: Left arm;Upper, Patient Position: Sitting) Pulse 87 Temp 37.6 ??C (Temporal) Resp 18 Ht 167.6 cm Wt 56.3 kg SpO2 100% No BMI 20.03 kg/m?? PHYSICAL EXAMINATION Constitutional General: She is not in acute distress. Appearance: Normal appearance. She is not toxic-appearing. Skin Comments: Right middle finger: The dorsal side of the finger between the metacarpal head and PIP joint does have a laceration which is going diagonal. This is approximately 1.5 cm long. Bleeding has now stopped. Range of motion of the finger is normal for her, she does not some limited ROM which has been more chronic. Sensation is intact. She has no surrounding redness. Neurological Mental Status: She is alert. ASSESSMENT / PLAN #1 Unspecified Open Wound Right Middle Finger Without Damage To Nail Initial I did offer sutures versus Dermabond. Given the patient's history of PTSD she feels she would do better with Dermabond. We did apply 3 Steri-Strips to the area and covered it with Dermabond and a finger splint to keep the finger straight while this is healing. We discussed avoiding soaking and avoiding Vaseline products which would remove the Dermabond. She was instructed on signs and symptoms of infection and when to return. We did discuss a tetanus vaccination today as it has been 5 years tothe month from her last vaccine however she declined today stating that given her PTSD this would be difficult for her. She will follow up as needed for any new concerns related to this. Xochitl Eckert APRN, C.NNicola., M.S.N. 07/27/24 1350 documented in this encounter Plan of Treatment Upcoming Encounters Date Type Department Care Team (Latest Contact Info) Description 09/03/2024 9:00 AM CDT Infusion Department of Allergy and Immunology in [place], [place] [address] [place] [phone] Ilya Barajas M.D. [address] [place] [phone] Discharge Disposition: Home or Self Care 09/08/2024 2:30 PM CDT Comprehensive Visit Department of Neurology in [address] [phone] Ang Sommer M.B.BLaS. [address] [place] [phone] Discharge Disposition: Home or Self Care 10/01/2024 9:00 AM CDT Infusion Department of Allergy and Immunology in [place], [place] [address] [place] [phone] Ilya Barajas M.D. [facility] [place] [phone] Discharge Disposition: Home or Self Care 10/29/2024 9:00 AM CDT Infusion Department of Allergy and Immunology in [place], [place] [address] [place] [phone] Ilya Barajas M.D. [address] [place] [phone] Discharge Disposition: Home or Self Care 01/22/2025 2:30 PM CDT Office Visit Department of Obstetrics and Gynecology in [address] [phone] Xochitl Berg M.D. [address] [place] [phone] documented as of this encounter Visit Diagnoses Diagnosis Unspecified Open Wound Right Middle Finger Without Damage To Nail Initial- Primary Unspecified Open Wound Right Middle Finger Without Damage To Nail Initial documented in this encounter Active and Recently Administered Medications Additional Health Concerns Assessment Noted Time PHQ-9 Depression Total Score: 18 025 10:50 AM DISPLAY ARTIST documented as of this encounter Care Teams Charge Entry Relationship Specialty Start Date End Date Bela Jauregui APRN, C.N.P. [address] [place] [phone] PCP - General Family Medicine 08/11/20 documented as of this encounter
--- OUTSIDE RECORDS SUMMARY | 2024-08-27 18:09 | XMS_ITS | Encounter Summary ---
Author Organization [facility] Address [address] [place] [address] Care Team Providers Care Tax Appraiser Name Role Phone Bela Jauregui APRN C.N.PLa Primary Care Pro vider Reason for Visit * Reason Comments Hives * Outpatient (Routine) - Closed Specialty Diagnoses / Procedures Referred By Linnea freeman Referred To Contact Allergy and Immunology Diagnoses Swelling Face Urticaria Idiopathic Pompholyx Rhinitis Allergic Ilya Barajas M.D. [address] [place] [phone] Phone: tel: fax: [facility] Region Referral ID Status Reason Start Date Expiration Date Visits Re quested Visits Authorized [id number] Closed 03/10/2024 09/09/2025 1 1 Encounter Details Date Type Department Care Team ([facility] st Contact Info) Description 07/07/2024 11:00 AM CDT Office Visit Department of Allergy and Immunology in [place], [place] [address] [place] [phone] Ilya Barajas M.D. [address] [place] [phone] Urticaria Idiopathic (Primary Dx); Swelling Face; Pompholyx; Rhinitis Allergic Discharge Disposition: Home or Self Care Social History Tobacco Use Types Packs/Day Years Used Date Smoking Tobacco: Never Cigarettes Qu it: 04/15/2004 Passive Smoke Exposure: Yes Smokeless Tobacco: Never Comments:I was a social smok er foe about 2 years Alcohol Use Standard Drinks/Week Comments Not Currently 2 (1 standard drink = 0.6 oz pur e alcohol) Occassionally [facility] Utilities Answer Date Recorded In the past 12 months has th e electric, gas, oil, or water company threatened to [...] often do you attend chur ch or jew services? More than 4 times per year 03/05/2022 Do you belong to any clubs o r organizations such as tenriism groups, unions, fraternal or athletic groups, or [...] Answer Date Recorded PHQ-2 Score 2 04/28/2024 [facility] - Occupational Stress [...] your living situation today? I have a [facility] place to live 04/16/2024 Education Answer Date Recorded What is the highest level of school you have completed or the highest degree you have received? 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 - 07/07/2024 11:00 AM CDT Since the cetirizine causes drowsiness, try using a less-sedating antihistamine on a regular basis for hives. Try fexofenadine (generic bqno-gts-hwcgzag Olga) 180-360 mg twice daily on a regular basis for prevention of itch and hives. Fexofenadine can help nasal allergy symptoms as well as skin itching. Fexofenadine tends to be least expensive as [employer] fexofenadine at [facility] [employer] or as Aller-Fex at [employer]. [facility] [employer] is a good place to look for inexpensive fexofenadine on-line. Fexofenadine is less likely to cause drowsiness compared to cetirizine, and hopefully it will work well for hives. If fexofenadine is not as helpful for hives, consider going back to cetirizine (generic lftj-omq-nwkajil Zyrtec) 10-30 mg twice per day for suppression of itch and hives. Cetirizine can help both skin itching and nasal allergy symptoms. Cetirizine tends to be least expensive as [employer] cetirizine at [facility] [employer] or as Aller-Che at [employer]. If you do not go to [employer] or [employer], [facility] [employer] is a good place to look for inexpensive cetirizine on-line. Another reasonable option is to use fexofenadine 180-360 mg in the morning and cetirizine 10-30 mg at bedtime. For rash and itching and not controlled with regular use fexofenadine/cetirizine, add diphenhydramine (generic zuqt-abl-ezudyvo Benadryl) 25-50 mg every 6 hours as needed. Diphenhydramine tends to cause drowsiness, so be careful about driving or using heavy machinery while taking diphenhydramine. We are often unable to determine a definitive cause of chronic itching, hives (urticaria), and/or swelling (angioedema). Regardless of the underlying cause of itching, certain nonallergic triggers tend to aggravate symptoms, especially in combination with each other. Examples include inflammation,fever, viral infection, heat, exercise, dehydration, pressure or friction on the skin, stress, hormonal fluctuations, alcohol, aspirin, ibuprofen (Advil or Motrin), naproxen (Aleve), Pepto-Bismol, and [place]. Acetaminophen (Tylenol) will not usually aggravate itching. Foods that are rich in histamine (???vasoactive?? foods) can aggravate itching in a way that has nothing to do with food allergy. Common vasoactive foods include tomato sauce, fresh strawberries, wine, beer, fish, and shellfish. This effect from vasoactive foods varies from person to person and depends on the amount ingested, so strict avoidance of these foods is not necessary. Since you have problems with nosebleeds with regular generic Flonase, try ppgz-zvu-mxfbkmn Flonase Sensimist 2 sprays each nostril once daily on a regular basis for control of nasal symptoms. FlonaseSensimist contains the same active ingredient as original Flonase, but is delivered in a less-drying, lower-volume, fragrance-free spray. It is only available rqmo-rvd-fbfrhoq. It takes a few days tostart working, and up to several weeks to reach full effect, so it works best when used consistently. For nasal dryness or thick mucus, consider water-based, hsjw-bal-faozvbn moisturizing nasal gels orsprays, such as [place], NasoGel, or Xlear. Liquid nasal moisturizers (such as Xlear) can loosen sticky, crusted mucus and promote mucus clearance. Nasal gels (such as [place] or NasoGel) can soothe dry, irritated nasal membranes. Different people have different preferences, so try several brands. There isno ???dose?? for nasal moisturizers, so you can use these products as often as desired. Tzpm-tdr-ynoloih lubricant eyedrops or gels as needed for dry eyes. Examples include Refresh, Genteal, Blink, Optive, and Systane. Clobetasol 0.05% ointment once daily as needed for blistering rash on hands and feet (not for hives). Clobetasol is a high-potency steroid. It tends to thin your skin with prolonged use, especially in areas where your skin is most delicate. Do not use clobetasol on your face, nipples, or groin. Do not use clobetasol longer than 2 weeks in any one location, with a 1-week rest period between uses. If you have a severe allergic reaction, such as throat swelling, severe lightheadedness, or difficulty breathing, inject epinephrine (Adrenaclick, EpiPen, Auvi-Q) into the thigh. If needed, a second dose of epinephrine can be administered after 5-10 minutes. You may also take diphenhydramine (Benadryl), but timely administration of epinephrine is more important. Epinephrine works best when used early in an allergic reaction. Seek urgent medical evaluation after using epinephrine. Plan on Xolair injections every 28 days. Hopefully, hives and swelling will improve and be well controlled with more consistent use of twice daily antihistamine (either cetirizine or fexofenadine), with lessening stress, and as viral symptoms from stomach flu in May resolve. If hives are not co ntrolled with more consistent use of either cetirizine or fexofenadine twice daily in the next 1-2 weeks, we can submit prior authorization to try Xolair injections every 14 days. This dose of Xolairis safe, and is FDA-approved for treatment of asthma, but it can be tricky to get it approved for treatment of hives, even though there are studies showing that up-dosing can be effective and safe. Follow up with the Allergy Department in 3 months if you are doing well, sooner if needed. Call for questions or concerns. documented in this encounter Progress Notes * Ilya Barajas M.D. - 07/07/2024 11:00 AM CDT SUBJECTIVE CHIEF COMPLAINT/REASON FOR VISIT Chief Complaint Patient presents with Hives HISTORY OF PRESENT ILLNESS Daily is here today for management of urticaria. She also has allergic rhinitis and pompholyx. He is accompanied today by her partner, Valeriy. CHANGES SINCE LAST VISIT: Tried montelukast, which was not at all helpful for hives. Started Xolair 03/10/2024, which helped a lot at first, both for recurrent angioedema and hives, with minimal symptoms for a couple months after starting Xolair. Symptoms have been worse again since May 2024 despite ongoing Xolair treatments. Hives and angioedema still improve for at least 10-14 days every time she gets a dose of Xolair, but since May 2024, she has had daily hives and intermittent angioedema once per week, with swelling lasting 2-3 days at a time. Although she is disappointed that symptoms have not been as well-controlled since May, symptoms are still nowhere near as severe as they were prior to starting Xolair. Factors which may contribute to worsening hives and angioedema since May 2024 include increased stress and/or acute viral illness. Increased stress and PTSD symptoms after being told that she needs a LEEP procedure for abnormal colposcopy results 05/21/2023. Hives and angioedema started to get worse concurrent with increased stress about colposcopy results, and symptoms worsened further after acute gastroenteritis symptoms in mid-May 2024 with nausea, vomiting, abdominal pain, diarrhea, feverishness (temperature 99.5?? F), malaise, decreased appetite, myalgia, and widespread joint pain with visible swelling, heat, and redness of the joints around her wrists and hands. Since mid-May 2024, acute diarrhea is better but she continues to experience daily nausea, vomiting every other day on average, decreased appetite, and joint pain with visible swelling in hands and wrists. She also developed itchy vesicular dyshidrotic eczematous rash on her hand, which improves with clobetasol. Furthermore, seasonal allergy symptoms have worsened in the past few weeks with nasal congestion, headache, runny nose, and postnasal drip. She has been using Flonase only occasionallybecause her nose gets too dry when used on a regular basis. Also, she started taking less cetirizine and diphenhydramine when hives improved with Xolair in late 2023, and she has not increased antihistamines since hives and allergy symptoms worsened in May and June 2024. SKIN: Currently using cetirizine 10 mg once daily in the morning on a regular basis (down from 30 mg twice daily on a regular basis, with an extra dose of 20 mg often in the middle of the day in February 2024). She adds diphenhydramine 50 mg at bedtime every other night lately for hives and swelling (compared to diphenhydramine 50 mg at bedtime, and occasionally 25-50 mg during the day in February 2024). Also using Xolair 300 mg every 28 days since 03/10/2024. She had minimal hives and angioedema for a couple months after starting Xolair in February 2024, now with daily hives and intermittent angioedema since mid- May 2024, as described above. Prone to intermittent hives since 2015 (age 39). Current episode of chronic urticaria began around mid-June 2023. She started to notice increased dental pain in fall 2022. She was treated for sinusitis 06/02/2023. Sinusitis symptoms had mostly resolved by the time hives began in June 2023, but she was still feeling sick and run down and stress was worse than usual when hives began. Dental inflammation probably contributed to worsening symptomsin spring 2023. She began to notice dental pain in fall 2022, which worsened in spring 2023, aroundthe same time hives flared. Furthermore, hives and angioedema have been milder overall since completing dental extractions in late October 2023. Hives appear as erythematous welts of variable shapes and sizes. Individual welts usually resolve in less than 24 hours without residual pigmentation. Occasionally individual welts last 2-3 days, andresolve with localized bruising and painful tenderness in addition to itching. She estimates intermittent bruising tender hives 8-10 times between July and October 2023, but has not had tender bruisinghives since dental extractions in October 2023. For the most part, urticarial lesions have been itchy and red and have resolved without residual bruising unless than 24 hours. Hives have been associatedwith marked angioedema, mostly around left jaw, bilateral eyes and lips, the bridge of her nose, occ asionally with swelling and pain around hands and feet, and once with rapid- onset generalized swelling of her abdomen. Angioedema has not been as severe or as frequent since dental extractions in October 2023. Episodes of angioedema with swelling around the jaw are usually associated with sore small bumps onthe left side of her throat and tongue, and pictures show white bumps about the size of a lentil, but without classic aphthous ulcers. These bumps are tender and usually resolve without specific treatment within 1 day. Symptoms are aggravated by heat, such as a hot shower. She has not noticed a predictable circadian pattern to hives or angioedema. Intermittent breast tenderness from November through January 2024, without obvious correlation to hives or angioedema. Regular menses every 21 days on average, with no obvious correlation to hives or angioedema. She typically uses acetaminophen as needed for pain. She rarely uses aspirin or ibuprofen, and she has not used any NSAIDs for months. She has never noticed increased swelling or angioedema after aspirin or NSAIDs. Symptoms are not predictably aggravated by specific foods. Significant stress associated with PTSD. Hives are typically worse when PTSD gets bad. Viral gastroenteritis appeared to aggravate hives in mid-May 2024. Prednisone helps temporarily, but symptoms rebound quickly off prednisone. She has hydroxyzine for anxiety, but she is not sure if itching or angioedema improves with hydroxyzine. She has not taken hydroxyzine in a long time. Cetirizine helps a little, especially at higher doses. However, cetirizine aggravates drowsiness. Diphenhydramine helps, but causes drowsiness, especially at higher doses. Famotidine not obviously helpful, and poorly tolerated because of increased diarrhea. Xolair helps a lot for both hives and angioedema. ANAPHYLAXIS: Was treated in the Emergency Department for severe flares of hives and angioedema 3 times between July and October 2023, with diagnosis of anaphylaxis with visit to Emergency Department visit 11/03/2023. She was seen in the Emergency Department a fourth time for a severe symptom flare with facial angio edema 02/10/2024. Symptoms associated with anaphylaxis/angioedema include worsening hives, increased nasal congestion, mild tongue and throat swelling (most pronounced around left jaw where she had dental extraction in October 2023). Occasionally angioedema is associated with shortness of breath and usually associated with severe anxiety. Some shortness of breath maybe due to anxiety, but at least a couple episodes of shortness of breath felt like they were caused by something more than anxiety. Symptoms began with a warm sensation that she describes like a dye injected into her chest, which then creeps up to her neck and face, causing increased nasal congestion, facial swelling, throat swelling, and severe shortness of breath. Shortness of breath is associated with chest tightness and throat swelling, but no cough. She describes wheezing, louder with inhalation, suggestive of stridor rather than true wheezing. Symptoms have never been as severe as they were on 11/03/2023. Epinephrine was helpful for these acute symptoms in the Emergency Department on 11/03/2023 and againon 02/10/2024. She has epinephrine at home, but has never self-administered epinephrine. She still feels like she would be too nervous to even consider using epinephrine on her own at home. RHINITIS AND CONJUNCTIVITIS: Currently using cetirizine 10 mg once daily and diphenhydramine 50 mg as needed at night (though she is using cetirizine and diphenhydramine more for hives than for nasal allergy symptoms). She used Flonase intermittently over the winter, but probably has not used Flonase at all since acute stomachflu symptoms in May 2024, in part because Flonase always aggravates nasal dryness and nosebleeds. EYES: Frequent dry eyes. Occasional eye itching. NOSE: Frequent stuffiness, postnasal drip, runny nose, sniffling, and nasal itching. Occasional sneezing. Frequent bilateral ear congestion, which seems unrelated to chronic bilateral sensorineural hearing loss. Frequent sinus pressure in bilateral cheeks, mostly along the sides of her nose. The mucus from her nose is usually clear. Problems with significant nasal dryness with Flonase, but without Flonase she has no problems with persistent nasal dryness or nosebleeds. Transient loss of sense of smell/taste after COVID, with partial recovery after COVID, but still with altered sense of taste and smell since COVID. Tonsils removed because of peritonsillar abscess with sepsis at age 24. No history of chronic sinusitis, recurrent ear infections, significant nasal injury, nasal polyposis, sinus surgery, or myringotomy tubes. No history of childhood hayfever symptoms. Nasal congestion started around age 47, in fall 2022. Symptoms have been mild and persistent since fall 2022 without obvious seasonal pattern or predictableaggravating factors, though nasal symptoms have definitely been a lot worse since mid-June 2024. She had never noticed increased spring allergy symptoms previously. Saline sinus rinse helps when she had a sinus infection in May 2023. Flonase helps, but causes nasal dryness and nosebleeds when used on a regular basis. Although she is using cetirizine and diphenhydramine primarily for hives, she feels like nasal symptoms also improve with oral antihistamines, though both cetirizine and diphenhydramine aggravate drowsiness. SYSTEMS REVIEW CONSTITUTIONAL: Longstanding persistent fatigue, worse since onset of hives. Longstanding insomnia, stable. Prone to weight loss occasionally, up to 15 pounds, but weight is stable overall. Low-grade subjective febrile symptoms frequently since fall 2022, but with no fever over 100?? F when checked. She was prone to frequent night sweats from about July 2023 until dental extraction in October 2023. No night sweats since October 2023. EYES: Right-sided cataract, with increased blurred vision, especially at night. Blurred vision on the right gets worse when hives and angioedema are active. EARS: Bilateral sensorineural hearing loss, worse on the right. Hearing loss started in her 20s andas been getting worse since age 39. NOSE: As per history of present illness, described above. MOUTH/THROAT: No problems with active dental decay since extraction of a lower left molar in late October 2023. No history of chronic gum disease. No history of recurrent canker sores or cold sores before 2022. Was treated for severe aphthous ulcers and acute viral symptoms in January 2023, and again has milder canker sores in her mouth with acute viral symptoms in July 2024. Also, when she has acute angioedema of her jaw, she develops small tender sores about the size of a lentil on the left side of her throat and left side of her tongue, without classic appearance of canker sores. Tender bumps on the side of her tongue usually resolve within 24 hours without residual markings. Persistent low -grade throat discomfort, which seems worse when hives are worse. CARDIOVASCULAR: No history of coronary artery disease, hypertension, hyperlipidemia, or other cardiovascular conditions. RESPIRATORY: Prone to shortness of breath and chest tightness with severe exacerbations of hives and angioedema, but no history of chronic cough, wheeze, chest tightness, or shortness of breath. No history of pulmonary disease. GASTROINTESTINAL: Daily nausea, especially in the morning (worse with increased PTSD and increased hives since May 2024, especially after acute gastroenteritis symptoms in mid-May 2024). Intermittent vomiting, every other day on average since May 2024, but rare vomiting prior to May 2024. Has been diagnosed with constipation-predominant irritable bowel syndrome. Frequent abdominal pain attributed to IBS, but since late December 2023, she has had more persistent severe abdominal pain, primarily in left lower quadrant, radiating to her left hip. She also has swollen nontender lymph nodes in her groin and had a positive Cologuard test. Subsequent colonoscopy was reassuringly normal. Instead of constipation, she has had looser stool with onset of persistent left lower quadrant abdominal pain since at least January 2024, with defecation 1-2 times per day. Left lower abdominal pain remains stable, and was stable during an episode of acute gastroenteritis symptoms in mid-May 2024. But she had symptoms suggestive of acute stomach flu symptoms for a few days in mid-May 2024, with persistent nausea, vomiting, and more frequent diarrhea multiple times per day, but this resolved after a few days. She is back to loose stool 1-2 times per day since then, mostly back to baseline symptoms reported in January 2024. Cologuard test was positive, and she has noticed visible blood in her stool once (03/09/2024), but colonoscopy revealed hemorrhoid as the source of blood. No black stool. Frequent hiccups since January 2024, probably around the time abdominal pain got worse, but hiccups are much milder since April 2024. No history of chronic swelling discomfortor food impaction, but prone to intermittent sore throat and mild swallowing discomfort. Sore throat usually resolves within a day of hives and swelling improving. No history of chronic esophageal reflux. GENITOURINARY: No history of painful urination, incontinence, or vaginal discomfort. MUSCULOSKELETAL: Diagnosed with osteoarthritis, but has an appointment with a arch cushion press operator to look at possible rheumatoid arthritis or other connective tissue disease. Prone to persistent joint pain in hands, feet, low back, hips, and elbows. Arthritis has been associated with visible swelling and redness and heat of feet and hands, especially swollen at second through fourth metacarpophalangeal joints. Joint pain and swelling has been especially severe since April 2024, and even worse since acute stomach flu symptoms in May 2024. Lately, joint pain in her hands makes it difficult tograb things, and joint pain and feet makes it difficult to walk. Also diagnosed with fibromyalgia, which has been more active lately. INTEGUMENTARY: Urticaria and angioedema as per history of present illness, described above. In addition to hives, she describes more persistent itchy rash with clusters of very tiny blisters on the sides of her fingers and around the cuticles of her toenails and fingernails, the arch of her foot, and medial wrists, with description consistent with pompholyx. No other chronic skin conditions. NEUROLOGICAL: Prone to intermittent tension headaches, worse than usual with increased hives and stress since May 2024. Increased sinus pressure when hives and facial swelling are worse. No history of stroke, seizure, chronic migraines. History of recurrent closed head injury, not recently. Intermittent numbness in her legs, usually associated with increased low back pain. Occasional similarnumbness in arms for unclear reasons. Numbness in arms lasts up to a few hours at a time and resolves without treatment. Intermittent numbness in left cheek since left lower molar was pulled in October 2023. PSYCHIATRIC: Uncontrolled anxiety, depression, and PTSD, worse than usual since she found out she needs a LEEP procedure in May 2024. ENDOCRINE: No history of diabetes or thyroid disease. Regular menses every 21 days. Problems with breast pain for several weeks in October 2023, with mild recurrence of breast pain in December. No significant breast pain since December 2023. No obvious correlation between breast pain and hives. HEMATOLOGIC/LYMPHATIC: No history of anemia or other bone marrow disorders. ALLERGIC/IMMUNOLOGIC: No history suggestive of significant immune deficiency. SOCIAL/ENVIRONMENTAL HISTORY The patient lives in [place], [place]. She smokes medical cannabis every day for treatment of PTSD and fibromyalgia. She has never been a tobacco smoker other than occasional social smoking in her 20s. Indoor pets at home include 7 cats and 1 dog. FAMILY HISTORY The patient's sister has eczema. Her father was diagnosed with colon cancer. No other family history of classic atopic conditions (eczema, asthma, allergic rhinitis, food allergy). The patient's mother and 2 of her sisters have thyroid disease. No family history of chronic urticaria or anaphylaxis. OBJECTIVE PHYSICAL EXAMINATION GENERAL: Alert. Cheerful and friendly. No acute distress. Intermittent sniffling. HEENT: Eyes: No scleral icterus or conjunctival injection. Ears: Bilateral external auditory canalsand tympanic membranes are normal with clear landmarks. Nose: Mild bilateral turbinate edema with pale nasal mucosa. Mild leftward deviation of nasal septum. No discolored mucus. Mouth: No obvious active dental decay. Normal oral mucosa (though on 03/10/2024, I was shown pictures of small white bumps on left side of tongue and left side of throat during episode of active facial swelling, etiologyunclear, no erythema or aphthous ulcer). NECK: Supple. No palpable cervical lymphadenopathy 07/07/2024 (improved from exam in February 2024).No palpable thyromegaly. AXILLAE: No axillary lymphadenopathy. LUNGS: Breathing comfortably without recruitment of accessory respiratory muscles. Clear to auscultation bilaterally. No wheeze, rales, or rhonchi. HEART: Regular rate and rhythm. No murmur, rub, or gallop. ABDOMEN: Soft. No significant abdominal tenderness. No palpable mass. Normal bowel sounds. No hepatosplenomegaly. Inguinal lymphadenopathy from February 2024 has resolved. EXTREMITIES: No pitting edema, clubbing or cyanosis. Normal development of nails. Slightly-enlarged, nontender bilateral second and third metacarpophalangeal joints. No active redness or heat of swollen joints in hands. SKIN: No active urticaria, dermatographism, or angioedema during clinic visit 07/07/2024 despite increased symptoms in the past month. There are a few isolated vesicles on the sides of her fingers andpatches of mild excoriated dermatitis on right medial wrist. At the time of her visit on 01/07/2024,I was shown pictures of impressive facial angioedema around both eyes and lips. On 03/10/2024, I was shown pictures of marked bloating/angioedema of the entire abdomen, which resolved within a few hours. This was associated with a single long dermatographic welts across lower abdomen, correlating with waistline of pants. DIAGNOSTIC DATA I reviewed relevant visit notes and lab results, salient details described above. Lab results back through July 2023 were significant for: Normal comprehensive metabolic panel on several occasions. Mildly-low lymphocytes and elevated neutrophils 07/20/2023, around the same time hives worsened. Subsequent normal CBC in August and October 2023. Normal ESR 07/20/2023. Normal TSH (1.0 mIU/L) 07/20/2023. Ordered additional testing for further evaluation of hives at the time of her visit 01/07/2024: Component Latest Ref Rng 01/07/2024 Thyroperoxidase Ab, S <34.0 IU/mL 26.3 Thyroglobulin Antibody, S <4.0 IU/mL <1.8 Antinuclear Ab, Hep-2 Substrate <1:80 (Negative) <1:80 (Negative) Negative antithyroid antibodies and NATE. Lab Results Component Value Date TRYPTASE 5.5 02/10/2024 TRYPTASE 9.1 11/03/2023 Serum tryptase within normal limits, with some variability, but not enough to classify as significant rise typically associated with anaphylaxis. There are no concerning lab results, and nothing in lab results to explain chronic urticaria or angioedema. Education Documentation EpiPen Education, taught by Ilya Barajas M.D. at 07/07/2024 1:11 PM. Learner: Patient Readiness: Acceptance Method: Demonstration Response: Able to Teach Back with Demonstration Education Comments No comments found. ASSESSMENT / PLAN #1 Urticaria Idiopathic #2 Swelling Face Etiology unclear. Factors which appear to contribute to hives and angioedema include stress and inflammation from infections. Hives and angioedema improve partially with high-dose cetirizine, but symptoms were not controlled even with cetirizine doses up to 6 times the FDA-recommended dose. Did nottolerate famotidine because of diarrhea, which resolved as soon as she stopped famotidine. Montelukast was not obviously helpful in February 2024. Symptoms improved significantly after starting Xolair in February 2024, with minimal hives or angioedema for a few months. Now experiencing daily hives and intermittent angioedema again since May 2024 despite Xolair. She has injectable epinephrineon hand to use in case of anaphylaxis from Xolair. Although she is disappointed that symptoms have not been as well-controlled since May 2024, symptoms are still nowhere near as severe as they were prior to starting Xolair. Factors which may contribute to worsening hives and angioedema since May 2024 include increased stress, acute viral illness gastroenteritis, and/or decreased antihistamine use, as described above in history of present illness. Since cetirizine aggravates drowsiness, recommend trying high-dose fexofenadine as described in patient instructions. She can still use cetirizine and/or diphenhydramine if fexofenadine is not adequate for symptom control. If symptoms remain poorly controlled despite optimized doses of oral antihistamines, consider submitting prior authorization to use a higher Xolair dose, 300 mg every14 days instead of 300 mg every 28 days. Although the FDA-approved Xolair dose for chronic urticaria is only 300 mg every 28 days, there are several studies showing that up-dosing of Xolair is often effective when hives improve only partially with Xolair 300 mg every 28 days. Higher doses of Xolairare certainly safe; the FDA has approved Xolair doses as high as 375 mg every 14 days for asthma. #3 Pompholyx In addition to hives, she describes more persistent itchy rash on the sides of her fingers and around the cuticles of her toenails and fingernails, with description consistent with pompholyx. Responds to clobetasol ointment as needed. #4 Rhinitis Allergic Suspect combination of allergic and nonallergic rhinitis, probably more nonallergic rhinitis than allergies, especially since symptoms began at age 47 (fall 2022). Symptoms improve with a combinationof Flonase and cetirizine, though generic Flonase has been poorly tolerated because of nosebleeds and cetirizine aggravates drowsiness. Recommend trying jrnf-pbm-ixwvuch Flonase Sensimist in place ofgeneric fluticasone nasal spray. Also reminded her to try gcnj-prm-czjwwwa water-based nasal moisturizing gels/sprays as needed. If symptoms remain poorly controlled, consider adding Astelin nasal spray. Patient Instructions Since the cetirizine causes drowsiness, try using a less-sedating antihistamine on a regular basis for hives. Try fexofenadine (generic gowk-djd-qgjabzk Olga) 180-360 mg twice daily on a regular basis for prevention of itch and hives. Fexofenadine can help nasal allergy symptoms as well as skin itching. Fexofenadine tends to be least expensive as [employer] [facility] fexofenadine at [facility] or as Aller-Fex at [employer]. [facility] is a good place to look for inexpensive fexofenadine on-line. Fexofenadine is less likely to cause drowsiness compared to cetirizine, and hopefully it will work well for hives. If fexofenadine is not as helpful for hives, consider going back to cetirizine (generic blqq-cti-lfekfwl Zyrtec) 10-30 mg twice per day for suppression of itch and hives. Cetirizine can help both skin itching and nasal allergy symptoms. Cetirizine tends to be least expensive as [employer] [facility] cetirizine at [facility] or as Aller-Che at [employer]. If you do not go to [facility] [employer] or [employer], [facility] is a good place to look for inexpensive cetirizine on-line. Another reasonable option is to use fexofenadine 180-360 mg in the morning and cetirizine 10-30 mg at bedtime. For rash and itching and not controlled with regular use fexofenadine/cetirizine, add diphenhydramine (generic gmvp-xjp-xebnvnh Benadryl) 25-50 mg every 6 hours as needed. Diphenhydramine tends to cause drowsiness, so be careful about driving or using heavy machinery while taking diphenhydramine. We are often unable to determine a definitive cause of chronic itching, hives (urticaria), and/or swelling (angioedema). Regardless of the underlying cause of itching, certain nonallergic triggers tend to aggravate symptoms, especially in combination with each other. Examples include inflammation, fever, viral infection, heat, exercise, dehydration, pressure or friction on the skin, stress, hormonal fluctuations, alcohol, aspirin, ibuprofen (Advil or Motrin), naproxen (Aleve), Pepto-Bismol, andAlka-[place]. Acetaminophen (Tylenol) will not usually aggravate itching. Foods that are rich in histamine (???vasoactive?? foods) can aggravate itching in a way that has nothing to do with food allergy. Common vasoactive foods include tomato sauce, fresh strawberries, wine, beer, fish, and shellfish. This effect from vasoactive foods varies from person to person and depends on the amount ingested, so strict avoidance of these foods is not necessary. Since you have problems with nosebleeds with regular generic Flonase, try noof-ktw-hihekng Flonase Sensimist 2 sprays each nostril once daily on a regular basis for control of nasal symptoms. FlonaseSensimist contains the same active ingredient as original Flonase, but is delivered in a less-drying, lower-volume, fragrance-free spray. It is only available blgu-aly-afzwvuz. It takes a few days tostart working, and up to several weeks to reach full effect, so it works best when used consistently. For nasal dryness or thick mucus, consider water-based, mife-oxt-murfhpv moisturizing nasal gels orsprays, such as [place], NasoGel, or Xlear. Liquid nasal moisturizers (such as Xlear) can loosen sticky, crusted mucus and promote mucus clearance. Nasal gels (such as [place] or NasoGel) can soothe dry, irritated nasal membranes. Different people have different preferences, so try several brands. There isno ???dose?? for nasal moisturizers, so you can use these products as often as desired. Kvxs-scm-wxaqrdx lubricant eyedrops or gels as needed for dry eyes. Examples include Refresh, Genteal, Blink, Optive, and Systane. Clobetasol 0.05% ointment once daily as needed for blistering rash on hands and feet (not for hives). Clobetasol is a high-potency steroid. It tends to thin your skin with prolonged use, especially in areas where your skin is most delicate. Do not use clobetasol on your face, nipples, or groin. Do not use clobetasol longer than 2 weeks in any one location, with a 1-week rest period between uses. If you have a severe allergic reaction, such as throat swelling, severe lightheadedness, or difficulty breathing, inject epinephrine (Adrenaclick, EpiPen, Auvi-Q) into the thigh. If needed, a second dose of epinephrine can be administered after 5-10 minutes. You may also take diphenhydramine (Benadryl), but timely administration of epinephrine is more important. Epinephrine works best when used early in an allergic reaction. Seek urgent medical evaluation after using epinephrine. Plan on Xolair injections every 28 days. Hopefully, hives and swelling will improve and be well controlled with more consistent use of twice daily antihistamine (either cetirizine or fexofenadine), with lessening stress, and as viral symptoms from stomach flu in May resolve. If hives are not co ntrolled with more consistent use of either cetirizine or fexofenadine twice daily in the next 1-2 weeks, we can submit prior authorization to try Xolair injections every 14 days. This dose of Xolairis safe, and is FDA-approved for treatment of asthma, but it can be tricky to get it approved for treatment of hives, even though there are studies showing that up-dosing can be effective and safe. Follow up with the Allergy Department in 3 months if you are doing well, sooner if needed. Call for questions or concerns. ADMINISTRATIVE BILLING I personally spent 93 minutes working on this encounter in the Allergy Department 07/07/2024. documented in this encounter Plan of Treatment Upcoming Encounters Date Type Department Care Team (Latest Contact Info) Description 09/03/2024 9:00 AM CDT Infusion Department of Allergy and Immunology in [address] [phone] Ilya Barajas M.D. [facility] [place] [phone] Discharge Disposition: Home or Self Care 09/08/2024 2:30 PM CDT Comprehensive Visit Department of Neurology in [address] [phone] Ang Sommer M.B.B.S. [address] [place] [phone] Discharge Disposition: Home or Self Care 10/01/2024 9:00 AM CDT Infusion Department of Allergy and Immunology in [place] [address] [place] [phone] Ilya Barajas M.D. [address] [place] [phone] Discharge Disposition: Home or Self Care 10/29/2024 9:00 AM CDT Infusion Department of Allergy and Immunology in [place] [address] [place] [phone] Ilya Barajas M.D. [address] [place] [phone] Discharge Disposition: Home or Self Care 01/22/2025 2:30 PM CDT Office Visit Department of Obstetrics and Gynecology in [address] [phone] Xochitl Berg M.D. [address] [place] [phone] documented as of this encounter Visit Diagnoses Diagnosis Urticaria Idiopathic- Primary Swelling Face Pompholyx Rhinitis Allergic documented in this encounter Additional Health Concerns Assessment Noted Time PHQ-9 Depression Total Score: 18 025 10:50 AM WAISTLINE JOINER documented as of this encounter Care Teams Tax Appraiser Relationship Specialty Start Date End Date Bela Jauregui APRN, C.N.P. [address] [place] [phone] PCP - General Family Medicine 08/11/20 documented as of this encounter
--- OUTSIDE RECORDS SUMMARY | 2024-08-27 18:09 | XMS_ITS | Encounter Summary ---
Author Organization [facility] Address [address] [place] [address] Care Team Providers Care Authorization Nurse Name Role Phone Bela Jauregui APRN, C.N.P. Primary Care Pro vider Encounter Details Date Type Department Care Team (Late st Contact Info) Description 06/30/2024 Orders Only Department of Family Medicine in [place], [place] [address] [place] [phone] Bela Jauregui APRN, C.N.P. [address] [place] [phone] Social History Tobacco Use Types Packs/Day Years Used Date Smoking Tobacco: Never Cigarettes Qu it: 04/15/2004 Passive Smoke Exposure: Yes Smokeless Tobacco: Never Comments:I was a social smok er foe about 2 years Alcohol Use Standard Drinks/Week Comments Not Currently 2 (1 standard drink = 0.6 oz pur e alcohol) Occassionally [facility] Utilities Answer Date Recorded In the past 12 months has e electric, gas, oil, or water company [...] How often do you attend chur or restorationism services? More than 4 times per year [...] Answer Date Recorded PHQ-2 Score 2 04/28/2024 [facility] - Occupational [...] your living situation today? I have a [facility] place to live 04/16/2024 Education Answer Date Recorded What is the highest level of school you have completed or the highest degree you have received? Associate degree: occupational, technical, or vocational program 03/05/2022 Comments No Sex and Gender Information Value Date Recorded Sex Assigned at Female 08/18/2021 11:37 AM CDT Legal Sex Female 9:05 PM NONPROFIT DIRECTOR Gender Identity Female 03/14/2020 12:38 PM NONPROFIT DIRECTOR Sexual Orientation Not on file documented as of this encounter Plan of Treatment Upcoming Encounters Date Type Department Care Team (Latest Contact Info) Description 09/03/2024 9:00 AM CDT Infusion Department of Allergy and Immunology in [place], [place] [address] [place] [phone] Ilya Barajas M.D. [facility] [place] [phone] Discharge Disposition: Home or Self Care 09/08/2024 2:30 PM CDT Comprehensive Visit Department of Neurology in [address] [phone] Ang Sommer M.B.BLaS. [address] [place] [phone] Discharge Disposition: Home or Self Care 10/01/2024 9:00 AM CDT Infusion Department of Allergy and Immunology in [place], [place] [address] [place] [phone] Ilya Barajas M.D. [address] [place] [phone] Discharge Disposition: Home or Self Care 10/29/2024 9:00 AM CDT Infusion Department of Allergy and Immunology in [place] [address] [place] [phone] Ilya Barajas M.D. [address] [place] [phone] Discharge Disposition: Home or Self Care 01/22/2025 2:30 PM CDT Office Visit Department of Obstetrics and Gynecology in [address] [phone] Xochitl Berg M.D. [address] [place] [phone] documented as of this encounter Visit Diagnoses Not on filedocumented in this encounter Additional Health Concerns Assessment Noted Time PHQ-9 Depression Total Score: 18 025 10:50 AM NONPROFIT DIRECTOR documented as of this encounter Care Teams Authorization Nurse Relationship Specialty Start Date End Date Bela Jauregui APRN, C.N.P. [address] [place] [phone] PCP - General Family Medicine 08/11/20 documented as of this encounter
--- OUTSIDE RECORDS SUMMARY | 2024-08-27 18:09 | XMS_ITS | Encounter Summary ---
Author Organization [facility] Address [address] [place] [address] Care Team Providers Care Ergonomics Technician Name Role Phone Bela Jauregui APRN, C.N.P. Primary Care Pro vider Encounter Details Date Type Department Care Team (Late st Contact Info) Description 07/02/2024 Orders Only Department of Family Medicine in [place], [place] [address] [place] [phone] Bela Jauregui APRN, C.N.P. [address] [place] [phone] Social History Tobacco Use Types Packs/Day Years Used Date Smoking Tobacco: Never Cigarettes Qu it: 04/15/2004 Passive Smoke Exposure: Yes Smokeless Tobacco: Never Comments:I was a social smok er foe about 2 years Alcohol Use Standard Drinks/Week Comments Not Currently 2 (1 standard drink = 0.6 oz pur e alcohol) Occassionally [facility] Utilities Answer Date Recorded In the [...] How often do you attend chur or christianity services? More than 4 times per year 03/05/2022 Do you belong to any clubs o r organizations such as yazidism groups, unions, fraternal or athletic groups, or [...] Date Recorded PHQ-2 Score 2 04/28/2024 [facility] - Occupational [...] your living situation today? I have a [facility] place to live 04/16/2024 Education Answer Date Recorded What is the highest level of school you have completed or the highest degree you have received? Associate degree: occupational, technical, or vocational program 03/05/2022 Comments No Sex and Gender Information Value Date Recorded Sex Assigned at Female 08/18/2021 11:37 AM CDT Legal Sex Female 9:05 PM ASSEMBLY HAND Gender Identity Female 03/14/2020 12:38 PM ASSEMBLY HAND Sexual Orientation Not on file documented as of this encounter Plan of Treatment Upcoming Encounters Date Type Department Care Team (Latest Contact Info) Description 09/03/2024 9:00 AM CDT Infusion Department of Allergy and Immunology in [place], [place] [address] [place] [phone] Ilya Barajas M.D. [facility] [place] [phone] Discharge Disposition: Home or Self Care 09/08/2024 2:30 PM CDT Comprehensive Visit Department of Neurology in [address] [phone] Ang Sommer M.B.BLaS. [address] [place] [phone] Discharge Disposition: Home or Self Care 10/01/2024 9:00 AM CDT Infusion Department of Allergy and Immunology in [place], [place] [address] [place] [phone] Ilya Barajas M.D. [address] [place] [phone] Discharge Disposition: Home or Self Care 10/29/2024 9:00 AM CDT Infusion Department of Allergy and Immunology in [place] [address] [place] [phone] Ilya Barajas M.D. [address] [place] [phone] Discharge Disposition: Home or Self Care 01/22/2025 2:30 PM CDT Office Visit Department of Obstetrics and Gynecology in [address] [phone] Xochitl Berg M.D. [address] [place] [phone] documented as of this encounter Visit Diagnoses Not on filedocumented in this encounter Additional Health Concerns Assessment Noted Time PHQ-9 Depression Total Score: 18 025 10:50 AM ASSEMBLY HAND documented as of this encounter Care Teams Ergonomics Technician Relationship Specialty Start Date End Date Bela Jauregui APRN, C.N.P. [address] [place] [phone] PCP - General Family Medicine 08/11/20 documented as of this encounter
--- OUTSIDE RECORDS SUMMARY | 2024-08-27 18:09 | XMS_ITS | Clinical Summary ---
Author Organization [facility] Address [address] [place] [id number] Care Team Providers Care Blind Hanger Name Role Phone Randa Curiel MD Primary Care Prov ider Allergies Active Allergy Reactions Criticality Noted Date Comments Clindamycin Hives Medium 01/07/2024 Hives Doxycycline Hives 08/22/2022 Duloxetine Hives 09/07/2021 Gabapentin Rash Medium 12/10/2022 Linezolid *Unknown 07/22/2023 Father almost from it. Penicillins Hives High 11/11/2008 Prednisone Hives Medium 01/07/2024 Legs turned purple with hives Medications fluticasone furoate 27.5 mcg/actuation nasal spray Inhale 2 Sprays into affected nostril(s). Active acetaminophen 500 mg tablet Take 1,000 mg by mouth every 6 hours if needed. 07/15/19 25 Active cetirizine 10 mg tablet Take 10 mg by mouth once daily if needed. Active clobetasol 0.05 % ointment Apply 1 Application topically to affected area(s) once daily if needed. 03/10/20 Active diphenhydrAMINE 50 mg capsule Take 50 mg by mouth every 6 hours if needed. Active EPINEPHrine 0.3 mg/0.3 mL auto-injector Inject 0.3 mg intramuscular one time if needed. 03/05/20 Active fluticasone (50 mcg per actuation) nasal solution (FLONASE) Inhale 2 Sprays in both nostrils once daily. 01/07/20 24 Active ondansetron 4 mg disintegrating tablet Take 4 mg by mouth every 8 hours if needed. 07/15/19 Active Active Problems Problem Noted Date Diagnosed Date History of cervical dysplasia 05/27/2024 Abnormal cervical Papanicolaou smear 05/06/2024 Overview (08/24/2024): 08/07/2001 LSIL 09/09/2001 MARTA 1 08/24/2021 ASCUS, + HPV 16. 09/07/2021 Colposcopy performed, no biopsies taken. Co-test in 1 year. Lost to follow up 05/06/2024 HSIL, + HPV 16 Idiopathic urticaria 02/28/2024 Chronic fatigue syndrome 12/10/2022 Myalgia, other site 12/10/2022 Osteoarthritis of hand 12/10/2022 Other specified abnormal immunological findings in serum 12/10/2022 Mood disorder 05/21/2022 Insomnia 04/10/2022 Chronic post-traumatic stress disorder (PTSD) Fibromyalgia 06/13/2015 Encounters Date Type Department Care Team Description 08/24/2024 1:25 PM CDT Office Visit [facility] [address] [place] [address] Randa Curiel MD Establish Care (Not happy with [place]. ); Referral 08/24/2024 Travel from Last 3 Months Immunizations Immunization Administration Dates Next Due HPV 9 (Gardasil 9) 08/08/2022,08/24/2021 Hep B (Hepatitis B (Adult) Recombinant Adjuvanted) 09/07/2022,08/08/2022 Influenza Virus, Unspecified 07/21/2020(Deferred : Patient Refused) Influenza, IIV4 04/25/2022 Td (Age >=7 Years) 07/21/2020(Deferred: Patient Refused),09/27/2004 Tdap 07/28/2018 Social History Tobacco Use Types Packs/Day Years Used Date Smoking Tobacco: Never Smokeless Tobacco: Never Tobacco Cessation:Counseling Given: Not Answered Alcohol Use Standard Drinks/Week Comments Yes 0 (1 standard drink = 0.6 oz pur e alcohol) PHQ-2 Answer Date Recorded PHQ-2 TOTAL SCORE 3 08/24/2024 Social Connections Answer Date Recorded Do you often feel lonely or isolated from those around you? 0 08/24/2024 Financial Resource Strain Answer Date R ecorded Difficulty of Paying Living Expenses 3 08/24/2024 Difficulty of Paying Living Expenses Not on file 08/24/2024 Food Insecurity Answer Date Recorded Do you worry your food will run out before you are able to buy more? 1 08/24/2024 Transportation Needs Answer Date Record ed Does lack of transportation keep you from medica l appointments? 1 08/24/2024 Does lack of transportation keep you from work, meetings or getting things that you need? 1 08/24/2024 Housing Stability Answer Date Recorded What is your housing situation today? 1 08/24/2024 Utilities Answer Date Recorded Do you have trouble paying f or utilities (for example, heat, electricity, water, phone)? 1 08/24/2024 Comments No Sex and Gender Information Value Date Recorded Sex Assigned at Not on file Legal Sex Female 8:44 AM CDT Gender Identity Not on file Sexual Orientation Not on file Obstetrics History Last Filed Vital Signs Vital Sign Reading Time Taken Comments Blood Pressure 115/68 08/24/2024 1:40 PM CDT Pulse 76 08/24/2024 1:40 PM CDT Temperature - - Respiratory Rate - - Oxygen Saturation 97% 08/24/2024 1:40 PM CDT Inhaled Oxygen Concentration - - Weight - - Height - - Body Mass Index - - Plan of Treatment Upcoming Encounters Date Type Department Care Team (Late st Contact Info) Description 08/28/2024 1:30 PM CDT Ancillary Procedure [facility] [address] [place] [address] 09/25/2024 1:25 PM CDT Office Visit [facility] [address] [place] [address] Randa Curiel MD [address] [place] [address] Health Maintenance Due Date Last Done Comments HIV for age 15-65 1989 BMI (ht and wt on same day) for age 18+ 1992 Hepatitis C screening for age 18-79 1992 COVID-19 vaccine series ( season) 2023 04/25/2022, 05/09/2021, 08/24/2020, Additional history exists Influenza Vaccine (Season Ended) 2024 04/25/2022 Mammogram for age 45-75 03/08/2025 03/08/20 24 (Verified in Care Everywhere or Patient Record) Depression screening for age 12+ 08/24/2025 08/24/2024 Lipids for age 45-75 10/09/2025 10/09/2020 (Verified in Care Everywhere or Patient Record) Pap test for age 21-65 05/06/2027 (Verified in Care Everywhere or Patient Record) Tetanus booster 07/28/2028 07/28/2018, 09/27/2004 Colonoscopy through age 75 03/18/203403/18 (Verified in Care Everywhere or Patient Record) Tdap Completed 07/28/2018 Pneumococcal series for age 6-49 Aged Out No longer eligible based on patient's age to complete this topic Procedures Procedure Name Priority Date/Time Associated Diagnosis Comments CBC WITH AUTO DIFFERENTIAL Routine 08/24/2024 2:50 PM CDT Left sided abdominal pain COMP METABOLIC PANEL Routine 08/24/2024 2:50 PM CDT Left sided abdominal pain SEDIMENTATION RATE Routine 08/24/2024 2: 50 PM CDT Arthralgia, unspecified joint Left sided abdominal pain C-REACTIVE PROTEIN Routine 08/24/2024 2: 50 PM CDT Arthralgia, unspecified joint Left sided abdominal pain URINALYSIS MACROSCOPIC - [facility] ONLY POC DIP ([facility]) Routine 08/24/2024 2:49 PM CDT Left sided abdominal pain URINALYSIS MICROSCOPIC Routine 2:48 PM CDT Left sided abdominal pain URINE CULTURE Routine 08/24/2024 2:48 PM CDT Left sided abdominal pain from Last 3 Months Results * SEDIMENTATION RATE (08/24/2024 2:50 PM CDT) Pathologist [facility] SED RATE BY MODIFIED LUPEERGREN 2 < OR = 20 mm/h [facility] Blood BLOOD SPECIMEN / Unknown 08/24/2024 2:50 PM CDT 08/24/2024 2:51 PM CDT Randa Curiel MD HEMATOLOGY Fi nal Result Performing Organization Address [facility]/ZIP Co de Phone Number [facility] [address] [address], [place] [phone] [facility] [address] [place] [address] * C-REACTIVE PROTEIN (08/24/2024 2:50 PM CDT) Pathologist [facility] C-REACTIVE PROTEIN <3.0 <8.0 mg/L [facility] Blood BLOOD SPECIMEN / Unknown 08/24/2024 2:50 PM CDT 08/24/2024 2:51 PM CDT Randa Curiel MD CHEMISTRY Fi nal Result Performing Organization Address [facility]/ZIP Co de Phone Number [facility] [address] [address], [place] [phone] [facility] [address] [place] [address] * (ABNORMAL) CBC AND DIFFERENTIAL (08/24/2024 2:50 PM CDT) WHITE BLOOD CELL COUNT 9.2 3.8 - 10.8 Thousand/u L [facility] RED BLOOD CELL COUNT 4.57 3.80 - 5.10 Million/uL [facility] HEMOGLOBIN 13.7 11.7 - 15.5 g/dL [facility] HEMATOCRIT 42.9 35.0 - 45.0 % [facility] MCV 93.9 80.0 - 100.0 fL [facility] MCH 30.0 27.0 - 33.0 pg [facility] MCHC 31.9(L) 32.0 - 36.0 g/dL [facility] Comment: For adults, a slight decrease in the calculated MCHC value (in the range of 30 to 32 g/dL) is most likely not clinically significant; however, it should be interpreted with caution in correlation with other red cell parameters and the patient's clinical condition. RDW 11.8 11.0 - 15.0 % [facility] PLATELET COUNT 271 140 - 400 Thousand/u L [facility] MPV 11.1 7.5 - 12.5 fL [facility] ABSOLUTE NEUTROPHILS 5,897 1,500 - 7,800 cells/uL [facility] ABSOLUTE LYMPHOCYTES 2,512 850 - 3,900 cells/uL [facility] ABSOLUTE MONOCYTES 653 200 - 950 cells/uL [facility] ABSOLUTE EOSINOPHILS 74 15 - 500 cells/uL [facility] ABSOLUTE BASOPHILS 64 0 - 200 cells/uL [facility] NEUTROPHILS 64.1 % [facility] LYMPHOCYTES 27.3 % [facility] MONOCYTES 7.1 % [facility] EOSINOPHILS 0.8 % [facility] BASOPHILS 0.7 % [facility] Blood BLOOD SPECIMEN / Unknown 08/24/2024 2:50 PM CDT 08/24/2024 2:51 PM CDT us Randa Curiel MD HEMATOLOGY nal Result [facility] [address] [place] [address], [place] [phone] [facility] [address] [place] [address] * COMP METABOLIC PANEL (08/24/2024 2:50 PM CDT) [facility] GLUCOSE 81 65 - 99 mg/dL [facility] Comment: Fasting reference interval UREA NITROGEN (BUN) 13 7 - 25 mg/dL [facility] CREATININE 0.79 0.50 - 0.99 mg/dL [facility] EGFR 92 > OR = 60 mL/min/1. 73m2 [facility] BUN/CREATININE RATIO SEE NOTE: 6 - 22 (calc) [facility] Comment: Not Reported: BUN and Creatinine are within reference range. SODIUM 137 135 - 146 mmol/L [facility] POTASSIUM 4.1 3.5 - 5.3 mmol/L [facility] CHLORIDE 104 98 - 110 mmol/L [facility] CARBON DIOXIDE 25 20 - 32 mmol/L [facility] CALCIUM 9.6 8.6 - 10.2 mg/dL [facility] PROTEIN, TOTAL 7.2 6.1 - 8.1 g/dL [facility] ALBUMIN 4.7 3.6 - 5.1 g/dL [facility] GLOBULIN 2.5 1.9 - 3.7 g/dL (calc) [facility] ALBUMIN/GLOBULIN RATIO 1.9 1.0 - 2.5 (calc) [facility] BILIRUBIN, TOTAL 0.4 0.2 - 1.2 mg/dL [facility] ALKALINE PHOSPHATASE 67 31 - 125 U/L [facility] AST 14 10 - 35 U/L [facility] ALT 10 6 - 29 U/L [facility] Blood BLOOD SPECIMEN / Unknown 08/24/2024 2:50 PM CDT 08/24/2024 2:51 PM CDT us Randa Curiel MD CHEMISTRY Fi nal Result [facility] [place] [address], [facility] [address] [place] [address] * POCT Urinalysis Dipstick Only [[id number]] (08/24/2024 2:49 PM CDT) Pathologist [facility] PH 6.0 5.0 - 8.0 [facility] SPECIFIC GRAVITY 1.015 1.001 - 1.035 [facility] GLUCOSE NEGATIVE NEGATIVE [facility] BILIRUBIN NEGATIVE NEGATIVE [facility] KETONES NEGATIVE NEGATIVE [facility] OCCULT BLOOD NEGATIVE NEGATIVE [facility] PROTEIN NEGATIVE NEGATIVE [facility] NITRITE NEGATIVE NEGATIVE [facility] LEUKOCYTE ESTERASE NEGATIVE NEGATIVE [facility] Urine URINE SPECIMEN / Unknown 08/24/2024 2:49 PM CDT 08/24/2024 2:49 PM CDT Randa Curiel MD URINE Fi nal Result [facility] [address] [place] [address], [facility] [address] [place] [address] * URINALYSIS MICROSCOPIC [96415.1] - routine (08/24/2024 2:48 PM CDT) Pathologist [facility] RBC 0-2 0-2, None Seen /HPF 08/24/2024 11:37 PM CDT [facility] WBC 0-2 0-2, 3-5, None Seen /HPF 08/24/2024 11:37 PM CDT [facility] BACTERIA None Seen None Seen, Rare, Few Bacteria/ HPF 08/24/2024 11:37 PM CDT [facility] EPITHELIAL CELLS None Seen None Seen, Few Epi/HPF 08/24/2024 11:37 PM CDT [facility] HYALINE CASTS 0-2 0-2, 3-5 /LPF 08/24/2024 11:37 PM CDT [facility] Urine URINE SPECIMEN / Unknown Non-Blood / Unknown 08/24/2024 2:48 PM CDT 08/24/2024 2:48 PM CDT us Randa Curiel MD URINE Fi nal Result Performing Organization Address City/[facility]/ZIP Co de Phone Number [facility] [address] [place] [address], * URINE CULTURE [64064.2] (08/24/2024 2:48 PM CDT) CULTURE No growth (<1,000 CFU/mL) 08/26/2024 9:50 AM CDT [facility] Urine URINE SPECIMEN / Unknown Non-Blood / Unknown 08/24/2024 2:48 PM CDT 08/24/2024 2:48 PM CDT us Randa Curiel MD MICROBIOLOGY Fi nal Result Performing Organization Address City[facility] Co de Phone Number [facility] [address] [place] [address], from Last 3 Months Insurance Care Teams Blind Hanger Relationship Specialty Start Date End Date Randa Curiel MD [address] [place] [address] PCP - General Family Practice 08/24/24
--- OUTSIDE RECORDS SUMMARY | 2024-08-27 18:09 | XMS_ITS | Encounter Summary ---
Author Organization [facility] Address [address] [place] [address] Care Team Providers Care Radio Frequency Engineer Name Role Phone Bela Jauregui APRN C.N.PLa Primary Care Pro vider Reason for Visit * Reason Comments Nurse Visit Patient here for aaron eduled Xolair injection per order of Dr. Barajas * Episode Based Medications - Authorized Specialty Diagnoses / Procedures Referred By Contac t Referred To Contact Diagnoses Urticaria Idiopathic Procedures AK OMALIZUMAB INJECTION Ilya Barajas M.D. [address] [place] [address] Phone: tel: fax: Department of Allergy and Immunology in [address] [address] Phone: tel: Referral ID Status Reason Start Date Expiration Date V isits Requested Visits Authorized [id number] Authorized 03/10/2024 09/05/2024 13 7 Encounter Details Date Type Department Care Team (Late st Contact Info) Description 08/06/2024 9:00 AM CDT Infusion Department of Allergy and Immunology in [address] [address] Ilya Barajas M.D. [address] [place] [address] Urticaria Idiopathic (Primary Dx) Discharge Disposition: Home or Self Care Social History Tobacco Use Types Packs/Day Years Used Date Smoking Tobacco: Never Cigarettes Qu it: 04/15/2004 Passive Smoke Exposure: Yes Smokeless Tobacco: Never Comments:I was a social smok er foe about 2 years Alcohol Use Standard Drinks/Week Comments Not Currently 2 (1 standard drink = 0.6 oz pur e alcohol) Occassionally [facility] Utilities Answer Date Recorded In the past 12 months has e [email or web address], gas, oil, or water [employer] threatened to shut off services in your [...] week 03/05/2022 How often do you attend up health system or sabianism services? More than 4 times per year 03/05/2022 Do you belong to any clubs o r organizations such as baptism groups, unions, fraternal or athletic groups, or [...] Answer Date Recorded PHQ-2 Score 2 04/28/2024 [facility] - Occupational Stress Questionnaire Answer Date Recorded [...] a [facility] place to live 04/16/2024 Education Answer Date Recorded What is the highest level of school you have completed or the highest degree you have received? Associate degree: occupational, technical, or vocational program 03/05/2022 Comments No Sex and Gender Information Value Date Recorded Sex Assigned at Female 08/18/2021 11:37 AM CDT Legal Sex Female 9:05 PM AUTO SERVICE DISPATCHER Gender Identity Female 03/14/2020 12:38 PM AUTO SERVICE DISPATCHER Sexual Orientation Not on file documented as of this encounter Last Filed Vital Signs Vital Sign Reading Time Taken Comments Blood Pressure 128/86 08/06/2024 9:57 AM CDT Pulse 66 08/06/2024 9:57 AM CDT Temperature 37.2 C (99 F) 08/06/2024 9:05 AM CDT Respiratory Rate 20 08/06/2024 9:57 AM CDT Oxygen Saturation 98% 08/06/2024 9:57 AM CDT Inhaled Oxygen Concentration - - Weight - - Height - - Body Mass Index - - documented in this encounter Progress Notes * Mary Livingston R.N. - 08/06/2024 9:00 AM CDT Pt arrived today for Xolair injection per Dr. Barajas's order on Infusion Therapy Plan. The patient reports no signs or symptoms of illness. The patient presents with Epi Pen with expiration date of01/2025. Vitals were obtained prior to injection. Xolair injection prepared per package instructions. Xolair injection 150 mg was given via subcutaneous route into the back of upper arms bilaterally,for a total dose of 300 mg per order. Patient was observed for 30 minutes post injection. Patient tolerated the injection without difficulty, no adverse reaction noted, and no complications at this time. The patient stated understanding to present to the ED if any symptoms arise. Post injection vitals were obtained. Patient has no further questions or concerns. The patient was discharged in stable condition. The patient to return for next injection as per order. documented in this encounter Miscellaneous Notes * Addendum Note - Mary Livingston R.N. - 08/06/2024 9:00 AM CDTAddended by: MARY LIVINGSTON on: 08/06/2024 12:06 PM Modules accepted: Level of Service documented in this encounter Plan of Treatment Upcoming Encounters Date Type Department Care Team (Latest Contact Info) Description 09/03/2024 9:00 AM CDT Infusion Department of Allergy and Immunology in [place] [address] [place] [phone] Ilya Barajas M.D. [facility] [place] [address] Discharge Disposition: Home or Self Care 09/08/2024 2:30 PM CDT Comprehensive Visit Department of Neurology in [address] [phone] Ang Sommer M.B.B.S. [address] [place] [phone] Discharge Disposition: Home or Self Care 10/01/2024 9:00 AM CDT Infusion Department of Allergy and Immunology in [address] [phone] Ilya Barajas M.D. [address] [place] [phone] Discharge Disposition: Home or Self Care 10/29/2024 9:00 AM CDT Infusion Department of Allergy and Immunology in [address] [phone] Ilya Barajas M.D. [address] [place] [phone] Discharge Disposition: Home or Self Care 01/22/2025 2:30 PM CDT Office Visit Department of Obstetrics and Gynecology in [address] [phone] Xochitl Berg M.D. [address] [place] [address] documented as of this encounter Visit Diagnoses Diagnosis Urticaria Idiopathic- Primary documented in this encounter Administered Medications Inactive Administered Medications - up to 3 most recent administrations Medication Order MAR Action Action Date Dose Rate Site omalizumab injection 300 mg (Xolair) 300 mg, subcutaneous, Once, On Lora 08/06/24 at 0930, For 1 dose, Restriction Criteria (Pharmacy will review and approve if criteria met): Meets restriction criteriaIndications:Urticaria Idiopathic Given 08/06/2024 9:19 AM CDT 300 mg Other documented in this encounter Additional Health Concerns Assessment Noted Time PHQ-9 Depression Total Score: 18 025 10:50 AM AUTO SERVICE DISPATCHER documented as of this encounter Care Teams Radio Frequency Engineer Relationship Specialty Start Date End Date Bela Jauregui APRN, C.N.P. [address] [place] [address] PCP - General Family Medicine 08/11/20 documented as of this encounter
--- OUTSIDE RECORDS SUMMARY | 2024-08-27 18:09 | XMS_ITS | Encounter Summary ---
Author Organization [facility] Address [address] [place] [address] Care Team Providers Care Rubber Turner Name Role Phone Bela Jauregui APRN, C.N.P. Primary Care Pro vider Reason for Visit * Auth/Cert (Routine) Specialty Diagnoses / Procedures Referred By Contac t Referred To Contact Diagnoses Cervical Dysplasia Personal History Cervical Dysplasia Personal History [Z87.410] Procedures NV CONIZATION CX EXCISN LOOP ELEC LEEP PROCEDURE - LOOP ELECTRO EXCISION PROCEDURE Xochitl Berg M.D. [address] [place] [phone] Phone: tel: fax: Referral ID Status Reason Start Date Expiration Date Visits Re quested Visits Authorized [id number] 1 1 Encounter Details Date Type Department Care Team (Late st Contact Info) Description 07/14/2024 2:32 PM CDT Anesthesia Event Outpatient Procedure Center in [place], [place] [address] [place] [phone] Sosa Crandall M.D. [address] [place] [phone] Zayra Fischer APRN, [address] [place] [phone] Anesthesia Record Procedure Summary Procedure Name Responsible Anesthesiologist Anesthesia Start Time Anesthesia Stop Time LEEP PROCEDURE - LOOP ELECTRO EXCISION PROCEDURE Sosa Crandall M.D. 07/14/24 1432 07/14/24 1527 Events Date Time Event Comment 07/14/2024 1354 1432 An Start Machine/Equipme nt Checked Infection Precautions Followed Procedure/Site Verified NPO Status Verified Supine Standard ASA Monitors Applied 1436 An Induction 1442 An Intubation 1443 Turnover to Proceduralist 1456 Proc Start 1511 Anes CS Handoff I, Zayra leroy, DIGITAL CONTENT PRODUCER, HEAVY EQUIPMENT SUPERVISOR, attest that I have reconciled the controlled substances and that I have reviewed all the significant information with the next anesthesia provider assuming care of this patient. 1513 Proc Fin 1517 Turnover to ANE Staff 1519 Airway Removal Criteria Met 1519 Extubation/Airway Removed 1520 an stop data 1527 An End I completed my handoff to the receiving staff during which we 1. Identified the patient 2. Identified the responsible provider 3. Reviewed the pertinent medical history 4. Discussed the surgical course 5. Reviewed intra-op anesthesia management and issues during anesthesia 6. Set expectations for post-procedure period 7. Allowed opportunity for questions and acknowledgement of understanding. Meds Name Total midazolam 1 mg/mL injection 2 mg fentanyl injection 50 mcg/mL 50 mcg lidocaine 2% (mg) injection 40 mg ondansetron 4 mg/2 mL injection 4 mg propofol 10 mg/mL injection 120 mg propofoL (Diprivan) infusion 10 mg/mL 32 9.18 mg dexAMETHasone (Decadron) injection 10 mg /mL 6 mg dexmedeTOMIDine (Precedex) injection 200 mcg/2 mL (RESTRICTED) 10 mcg ketorolac (ToradoL) injection 15 mg/mL 1 5 mg Lactated Ringer's 1,000 mL * Agents No agents on file. * Blood No blood administrations on file. Lines, Drains, and Airways Type Details Placement Removal Peripheral IV Placement Date: 05/09; Placement Time: 1308; Catheter Size: 20 G; Orientation: Right, Lower; Location: Forearm; Site Prep: Chlorhexidine (Preferred); Insertion Attempts: 1; Removal Date: 07/14/24; Removal Time: 1640 07/14/24 1308 by Laila Green, R.NLa 07/14/24 1640 by Shelley Goins RLaNLa Supraglottic Airway Placement Date: 05/09; Placement Time: 1442 (created via procedure documentation); Mask Ventilation: Not attempted; Brand: Unique; Size: 4; Removal Date: 07/14/24; Removal Time: 15207/14/24 1442 by Zayra Fischer APRN, CRNA 07/14/24 1520 by Joanna Tay APRN, CRNA, DNAP documented in this encounter Social History Tobacco Use Types Packs/Day Years Used Date Smoking Tobacco: Never Cigarettes Qu it: 04/15/2004 Passive Smoke Exposure: Yes Smokeless Tobacco: Never Comments:I was a social smok er foe about 2 years Alcohol Use Standard Drinks/Week Comments Not Currently 2 (1 standard drink = 0.6 oz pur e alcohol) Occassionally [facility] Utilities Answer Date Recorded In the past 12 months has e [employer], gas, oil, or water [employer] threatened to shut off services in your [...] often do you attend chur ch or pentecostal services? More than 4 times per year [...] Date Recorded PHQ-2 Score 2 04/28/2024 [facility] - Occupational Stress Questionnaire Answer Date [...] AM CDT Legal Sex Female 9:05 PM DAY CARE PROVIDER Gender Identity Female 03/14/2020 12:38 PM DAY CARE PROVIDER Sexual Orientation Not on file documented as of this encounter OR Notes * Anesthesia Postprocedure Evaluation - Sosa Crandall M.D. - 07/14/2024 3:27 PM CDT Patient: Daily Chen Procedure Summary Date: 07/14/24 Room / Location: [address] Anesthesia Start: 1432 Anesthesia Stop: 1527 Procedure: LEEP PROCEDURE - LOOP ELECTRO EXCISION PROCEDURE Diagnosis: Cervical Dysplasia Personal History (Cervical Dysplasia Personal History [Z87.410]) Providers: Xochitl Berg M.D. Responsible Provider: Sosa Crandall M.D. Anesthesia Type: general ASA Status: 2 Anesthesia Type: general Last vitals Vitals Value Taken Time BP 98/72 07/14/24 1540 Temp 36.4 ??C 07/14/24 1522 Pulse 61 07/14/24 1543 Resp 15 07/14/24 1543 SpO2 98 % 07/14/24 1543 Vitals shown include unfiled device data. Please reference Vitals flowsheet for most recent vital signs. Anesthesia Post Evaluation Patient Disposition: dismissal Cardiovascular status: hemodynamics (HR & BP) acceptable Respiratory status: patent airway with spontaneous effort Temperature: normothermic Oxygen requirements: room air Level of consciousness: awake Pain score: pain adequately controlled and/or at baseline Post Op nausea/vomiting: none Hydration status: euvolemic Notable Events No notable events documented. * Anesthesia Procedure Notes - Zayra Fischer APRN, CRNA - 07/14/2024 2:43 PM CDTAssociated Order(s): Airway Airway Date/Time: 07/14/2024 2:42 PM Performed by: Zayra Fischer APRN, CRNA Authorized by: Zayra Fischer APRN, CRNA Patient location during procedure: OR / Procedure Area PROCEDURE DETAILS: Mask difficulty assessment: not attempted Final airway type: supraglottic airway Device size: 4 Number of attempt to successful placement: 1 Supraglottic device: LMA unique Supraglottic device size: 4 Airway confirmation: bilateral breath sounds, positive ETCO2 and bilateral chest rise Other previous techniques attempted: none PRE PROCEDURE DETAILS: Pre evaluation for airway management: procedure Urgency: elective Preop assessment of probable difficulty: no difficulty anticipated Preoxygenation: bag valve mask SEDATION / ANESTHESIA Anesthesia method: anesthesia POST PROCEDURE DETAILS: Procedure outcome: successful Notable Events: no complications * Anesthesia Preprocedure Evaluation - Sosa Crandall M.D. - 07/14/2024 1:53 PM CDT Preprocedure Anesthesia & H&P Assessment Procedure Summary Date/Time: 07/14/24 1440 Procedure: LEEP PROCEDURE - LOOP ELECTRO EXCISION PROCEDURE Diagnosis: Cervical Dysplasia Personal History [Z87.410] Pre-op diagnosis: Cervical Dysplasia Personal History [Z87.410] Location: [address] Providers: Xochitl Berg M.D. Pertinent components of the patient's history including current problem list, medical history, surgical history, family history, social history, medications and allergies were reviewed. Present illness and pre-op diagnosis were confirmed. The planned surgery / procedure was verified with the patient / legal guardian. The patient's general health condition remains unchanged RELEVANT COMORBID CONDITIONS PSYCH (+) Posttraumatic Stress Disorder Prolonged Musculoskeletal (+) Fibromyalgia Other (+) Cervical Dysplasia Personal History OBJECTIVE PHYSICAL EXAMINATION Airway (HEENT) Mallampati: III TM Distance: >3 FB Neck ROM: Full Mouth Opening: >3 cm Cardiovascular Rhythm: Regular Rate: Normal Cardiovascular Assessment: cardiovascular normal Functional Capacity: >4 METS Pulmonary Pulmonary Assessment: Clear General / Constitutional Constitutional Assessment: Normal Neurological Neurologic Assessment: alert and alert and oriented x 3 Dental Dental Assessment: dentition intact ASSESSMENT / PLAN ANESTHESIA PLAN ASA: 2 Anesthesia Plan: general Patient seen and allergies reviewed, anesthesia plan and risks discussed directly with patient /legal guardian or through an product support specialist. The use of blood products not discussed Approval to Proceed: approved for anesthesia documented in this encounter Plan of Treatment Upcoming Encounters Date Type Department Care Team (Latest Contact Info) Description 09/03/2024 9:00 AM CDT Infusion Department of Allergy and Immunology in [address] [phone] Ilya Barajas M.D. [address] [place] [phone] Discharge Disposition: Home or Self Care 09/08/2024 2:30 PM CDT Comprehensive Visit Department of Neurology in [address] [phone] Ang Sommer M.B.B.S. [address] [place] [phone] Discharge Disposition: Home or Self Care 10/01/2024 9:00 AM CDT Infusion Department of Allergy and Immunology in [address] [phone] Ilya Barajas M.D. [address] [place] [phone] Discharge Disposition: Home or Self Care 10/29/2024 9:00 AM CDT Infusion Department of Allergy and Immunology in [address] [phone] Ilya Barajas M.D. [address] [place] [phone] Discharge Disposition: Home or Self Care 01/22/2025 2:30 PM CDT Office Visit Department of Obstetrics and Gynecology in [place], [place] [address] [place] [phone] Xochitl Berg M.D. [address] [place] [phone] documented as of this encounter Procedures Procedure Name Priority Date/Time Associated Diagnosis Comments LDA ANE NON-SURGICAL AIRWAY Routine 07/14/2024 2:42 PM CDT documented in this encounter Results * LDA ANE NON-SURGICAL AIRWAY (07/14/2024 2:42 PM CDT) Narrative Zayra Fischer APRN, CRNA - 07/14/2024 2:42 PM CDT Zayra Fischer APRN, CRNA 07/14/2024 2:44 PM Airway Date/Time: 07/14/2024 2:42 PM Performed by: Zayra Fischer APRN, CRNA Authorized by: Zayra Fischer APRN, CRNA Patient location during procedure: OR / Procedure Area PROCEDURE DETAILS: Mask difficulty assessment: not attempted Final airway type: supraglottic airway Device size: 4 Number of attempt to successful placement: 1 Supraglottic device: LMA unique Supraglottic device size: 4 Airway confirmation: bilateral breath sounds, positive ETCO2 and bilateral chest rise Other previous techniques attempted: none PRE PROCEDURE DETAILS: Pre evaluation for airway management: procedure Urgency: elective Preop assessment of probable difficulty: no difficulty anticipated Preoxygenation: bag valve mask SEDATION / ANESTHESIA Anesthesia method: anesthesia POST PROCEDURE DETAILS: Procedure outcome: successful Notable Events: no complications Zayra Fischer APRN, CRNA ANESTHESIA ORDERABLES Final Result documented in this encounter Visit Diagnoses Not on filedocumented in this encounter Administered Medications Inactive Administered Medications - up to 3 most recent administrations Medication Order MAR Action Action Date Dose Rate Site dexAMETHasone injection (Decadron) intravenous, As needed, Starting on Sat07/14/24 at 1441, Anesthesia Intra-op Given 07/14/2024 2:41 PM CDT 6 mg dexmedeTOMIDine injection (Precedex) intravenous, As needed, Starting on Sat07/14/24 at 1501, Anesthesia Intra-op Given 07/14/2024 3:01 PM CDT 10 mcg fentaNYL injection (Sublimaze) intravenous, As needed, Starting on Sat07/14/24 at 1438, Anesthesia Intra-op Given 07/14/2024 2:38 PM CDT 50 mcg ketorolac injection (ToradoL) intravenous, As needed, Starting on Sat07/14/24 at 1511, Anesthesia Intra-op Given 07/14/2024 3:11 PM CDT 15 mg Lactated Ringer's 30 mL/hr, intravenous, Continuous, Starting on Sat07/14/24 at 1300, Pre-Op New Bag 07/14/2024 3:12 PM CDT 30 mL/hr Rate/Dose Verify 07/14/2024 2:32 PM CDT 30 mL/h r New Bag 07/14/2024 1:11 PM CDT 30 mL/hr 30 mL/hr lidocaine (PF) (cardiac) injection intravenous, As needed, Starting on Sat07/14/24 at 1437, Anesthesia Intra-op Given 07/14/2024 2:37 PM CDT 40 mg midazolam (PF) injection (Versed) intravenous, As needed, Starting on Sat07/14/24 at 1431, Anesthesia Intra-op Given 07/14/2024 2:31 PM CDT 2 mg ondansetron (PF) injection (Zofran) intravenous, As needed, Starting on Sat07/14/24 at 1511, Anesthesia Intra-op Given 07/14/2024 3:11 PM CDT 4 mg propofol 10 mg/mL infusion (Diprivan) intravenous, Continuous Infusion: Per Instructions PRN, Starting on Sat07/14/24 at 1436, Anesthesia Intra-op New Bag 07/14/2024 2:36 PM CDT 165 mcg/kg/min 56.43 mL/hr propofoL injection (Diprivan) intravenous, As needed, Starting on Sat07/14/24 at 1439, Anesthesia Intra-op Given 07/14/2024 2:39 PM CDT 120 mg documented in this encounter Additional Health Concerns Assessment Noted Time PHQ-9 Depression Total Score: 18 025 10:50 AM DAY CARE PROVIDER documented as of this encounter Care Teams Rubber Turner Relationship Specialty Start Date End Date Bela Jauregui APRN, C.N.[place] [place] [phone] PCP - General Family Medicine 08/11/20 documented as of this encounter
--- OUTSIDE RECORDS SUMMARY | 2024-08-27 18:09 | XMS_ITS | Encounter Summary ---
Author Organization [facility] Address [address] [place] [address] Care Team Providers Care Flux Core Welder Name Role Phone Bela Jauregui APRN, C.NJacquelin Primary Care Pro vider Reason for Referral * Outpatient (Routine) - Closed Specialty Diagnoses / Procedures Referred By Linnea freeman Referred To Contact Obstetrics and Gynecology Xochitl Berg M.D. [address] [place] [phone] Phone: tel: fax: [facility] Referral ID Status Reason Start Date Expiration Date Visits Re quested Visits Authorized [id number] Closed 07/14/2024 01/13/2026 1 1 Reason for Visit * Auth/Cert (Routine) Specialty Diagnoses / Procedures Referred By Linnea freeman Referred To Contact Diagnoses Cervical Dysplasia Personal History Cervical Dysplasia Personal History [Z87.410] Procedures [place] CONIZATION CX EXCISN LOOP ELEC LEEP PROCEDURE - LOOP ELECTRO EXCISION PROCEDURE Xochitl eBrg M.D. [address] [place] [phone] Phone: tel: fax: Referral ID Status Reason Start Date Expiration Date Visits Re quested Visits Authorized [id number] 1 1 Encounter Details Date Type Department Care Team (Latest Contact Info) Description 07/14/2024 12:00 PM CDT - 07/14/2024 4:45 PM CDT Hospital Encounter Outpatient Procedure Center in [place], [place] [address] [place] [phone] Xochitl Berg M.D. [address] [place] [phone] Cervical Dysplasia Personal History Discharge Disposition: Home or Self Care Social History Tobacco Use Types Packs/Day Years Used Date Smoking Tobacco: Never Cigarettes Qu it: 04/15/2004 Passive Smoke Exposure: Yes Smokeless Tobacco: Never Comments:I was a social smok er foe about 2 years Alcohol Use Standard Drinks/Week Comments Not Currently 2 (1 standard drink = 0.6 oz pur e alcohol) Occassionally [facility] Utilities Answer Date Recorded In the past 12 months has e electric, gas, oil, or water [employer] threatened to shut off services in your [...] How often do you attend chur or pentecostal services? More than 4 times [...] Answer Date Recorded PHQ-2 Score 2 04/28/2024 [facility] - [...] AM CDT Legal Sex Female 9:05 PM [employer]NS[employer] Gender Identity Female 03/14/2020 12:38 PM [employer]EMIOLOGY INTERNSHIP Sexual Orientation Not on file documented as of this encounter Last Filed Vital Signs Vital Sign Reading Time Taken Comments Blood Pressure 96/65 07/14/2024 4:25 PM CDT Pulse 65 07/14/2024 4:30 PM CDT Temperature 36.4 C (97.5 F) 07/14/2024 3:22 PM CDT Respiratory Rate 13 07/14/2024 4:30 PM CDT Oxygen Saturation 98% 07/14/2024 4:30 PM CDT Inhaled Oxygen Concentration - - Weight 57 kg (125 lb 10.6 oz) 07/14/2024 12:42 P M CDT Height 157 cm (5' 1.81) 07/14/2024 12:42 PM CDT Body Mass Index 23.12 07/14/2024 12:42 PM CDT documented in this encounter Medications [...] 4 g in 24 hours. 60 tablet cannabidiol, CBD, (CANNABIDIOL ORAL) Inhale. cetirizine (ZyrTEC) [...] mg iron/15 mL liquid 15 mL daily. jfawhtxwieid-rsuk-O A 18-400 mg-mcg tablet Take 1 tablet by mouth daily. Once every other day ondansetron ODT (Zofran-ODT) 4 mg disintegrating tablet Dissolve 1 tablet (4 mg total) in the mouth every 8 (eight) hours as needed for nausea or vomiting. 20 tablet 5 documented as of this encounter H&P Notes * Xochitl Berg M.D. - 07/14/2024 2:22 PM CDT Gynecology Pre-Operative History & Physical REASON FOR VISIT No chief complaint on file. HISTORY OF PRESENT CONDITION Ms. Chen is a 48 y.o., , who presents for scheduled LEEP procedure. No interval changes since being evaluated in the office. Please see office progress note. REVIEW OF SYSTEMS Negative unless indicated above. HISTORY Medical History[1] Surgical History[2] Family History[3] SOCIAL HISTORY Tobacco Use History[4] Daily Chen reports being sexually active and has had partner(s) who are male. She reports using the following method of control/protection: Tubal ligation (tubes tied). OBJECTIVE VITAL SIGNS Vitals: 07/14/24 1242 07/14/24 1300 07/14/24 1311 BP: 129/78 118/84 Pulse: 74 73 Resp: 14 14 Temp: 36.5 ??C SpO2: 99% 98% Weight: 57 kg Height: 157 cm Body mass index is 23.12 kg/m??. PHYSICAL EXAM General: well-appearing, no acute distress HEENT: normocephalic, atraumatic Musculoskeletal: normal tone and bulk Skin: warm and dry Neuro: alert and oriented, non-focal, no gross deficits Psych: conversational, appropriate DIAGNOSTICS Hemoglobin Date Value Ref Range Status 10/29/2023 12.9 11.6 - 15.0 g/dL Final Leukocytes Date Value Ref Range Status 10/29/2023 7.4 3.4 - 9.6 x10(9)/L Final Platelet Count Date Value Ref Range Status 10/29/2023 237 157 - 371 x10(9)/L Final Glucose, P Date Value Ref Range Status 04/28/2024 95 70 - 140 mg/dL Final Creatinine Date Value Ref Range Status 04/28/2024 0.68 0.59 - 1.04 mg/dL Final Albumin, P Date Value Ref Range Status 04/28/2024 4.3 3.5 - 5.0 g/dL Final PATHOLOGY Result Date Procedure Results Follow-ups 05/21/2024 Colposcopy 05/06/2024 HPV with Genotyping, PCR, ThinPrep Pap Smear: HSIL HPV: HRHPV 16 + HPV with Genotyping, ThinPrep, PCR: Positive (A) HPV High Risk type 16, PCR: Positive (A) HPV High Risk type 18/45, PCR: Negative Colposcopy 05/06/2024 ThinPrep w/HPV Co-Test Screen (A) Report electronically signed by: Navin Zheng MD I verify that I have examined all relevant slides/materials for the specimen(s) and rendered or confirmed the diagnosis. (A) Gross Description: Received specimen in a ThinPrep vial. (A) Pap Test Source: Cervical/Endocervical (A) Hormone Therapy/Contraceptives: None/Not known (A) Interpretation: Cervical/Endocervical (ThinPrep): Satisfactory for Evaluation Epithelial Cell Abnormality High grade squamous intraepithelial lesion High Risk HPV: Positive Positive for High Risk HPV by nucleic acid amplification. Positive for one or mor... (A) 09/07/2021 Colposcopy 08/24/2021 HPV with Genotyping, PCR, ThinPrep Pap Smear: ASC-US HPV: HRHPV +, HRHPV 16 + HPV with Genotyping, ThinPrep, PCR: Positive (A) HPV High Risk type 16, PCR: Positive (A) HPV High Risk type 18/45, PCR: Negative Colposcopy 08/24/2021 ThinPrep w/HPV Co-Test Screen (A) Report electronically signed by: Navin Zheng MD I verify that I have examined all relevant slides/materials for the specimen(s) and rendered or confirmed the diagnosis. (A) Gross Description: Received specimen in a ThinPrep vial. (A) Pap Test Source: Cervical/Endocervical (A) Hormone Therapy/Contraceptives: None/Not known (A) Interpretation: Cervical/Endocervical (ThinPrep): Satisfactory for Evaluation Partially obscuring inflammation Epithelial Cell Abnormality Atypical squamous cells of undetermined significance High Risk HPV: Positive Positive for High Risk HPV by nucleic ... (A) IMAGING RESULTS, LAST 30 DAYS - IMPRESSION ONLY No results found. ASSESSMENT / PLAN #1 Fibromyalgia #2 Posttraumatic Stress Disorder Prolonged #3 Cervical Dysplasia Personal History On-call to OR for loop electrode excisional procedure. Consent reviewed. All questions answered. MARTA 3 found at 4 o'clock cervical biopsy as well as ECC. Xochitl Berg M.D. [1] Past Medical History: Diagnosis Date Fibromyalgia [2] Past Surgical History: Procedure Laterality Date HERNIA REPAIR Right Hernia repair LIGATION OF FALLOPIAN TUBE N/A Tubal ligation OTHER SURGICAL HISTORY 1982 Hernia SINUS SURGERY TONSILLECTOMY 2000 (abcess) TUBAL LIGATION 2000 [3] Family History Problem Relation Name Age of Onset Diabetes Mother Serena Depression Mother Serena Thyroid disease Mother Serena Arthritis Mother Serena Sleep apnea Mother Serena Diabetes Father Serena Lost weight so considered pre Thyroid disease Father Serean Mama theough medictions Arthritis Father Serena Possibly due or early onset due to medications she was on Sleep apnea Father Serena Depression Father Serena Colon cancer Father Serena Depression Sister Yen Clotting disorder Sister Yen Thyroid disease Sister Aida Obesity Sister Aida Thyroid disease Sister Alexandria Clotting disorder Sister Alexandria Post knee sx (assumed control related) Obesity Sister Alexandria Anesthesia problems Sister Alexandria Diabetes Paternal Grandmother Tyrone Biological fathers side [4] Social History Tobacco Use Smoking Status Never Passive exposure: Yes Smokeless Tobacco Never Tobacco Comments I was a social smoker foe about 2 years documented in this encounter OR Notes * Op Note - Xochitl Berg M.D. - 07/14/2024 2:56 PM CDT Pre-op Diagnosis Cervical Dysplasia Personal History Post-op Diagnosis Cervical Dysplasia Personal History Findings Cervix without any gross lesions or masses. Entire area without Lugol's uptake was excised using the white loop electrode. Hemostasis observed. Complications None Operative Note Narrative Patient was taken to the operating room with IV fluids running. General anesthesia was obtained without difficulty. She was placed in the dorsal lithotomy position using Cj type stirrups and kneesbent to 90 degree angles. Pressure points were padded and SCDs were applied to the bilateral lower e xtremities. She was prepared and draped in the normal sterile fashion. A time- out was called prior to the start of the procedure. A blue coated Graves speculum was inserted into the vagina. The cervix was visualized. A paracervical block was injected. The cervix was painted with Lugol's. There were no gross lesions or masses. The entire area without Lugol's uptake with a several mm margin was excised using the white loop electrode. The main portion of the excision was marked with a stitch at the 12 o'clock position. At either end of the cervical excision site 2 additional, small pieces of tissue were removed just lateral to the original excision site to make the are excised uniform. Ball cautery was used around the edges of the excision. Direct pressure and Monsel's solution were applied. Hemostasis was observed. All counts were correct x2. The speculum and all instruments were removed from the vagina. Patient tolerated the procedure well. Xochitl Berg M.D. documented in this encounter Plan of Treatment Upcoming Encounters Date Type Department Care Team (Latest Contact Info) Description 09/03/2024 9:00 AM CDT Infusion Department of Allergy and Immunology in [place] [address] [place] [phone] Ilya Barajas M.D. [facility] [place] [phone] Discharge Disposition: Home or Self Care 09/08/2024 2:30 PM CDT Comprehensive Visit Department of Neurology in [address] [phone] Ang Sommer M.B.B.S. [address] [place] [phone] Discharge Disposition: Home or Self Care 10/01/2024 9:00 AM CDT Infusion Department of Allergy and Immunology in [place] [address] [place] [phone] Ilya Barajas M.D. [address] [place] [phone] Discharge Disposition: Home or Self Care 10/29/2024 9:00 AM CDT Infusion Department of Allergy and Immunology in [address] [phone] Ilya Barajas M.D. [address] [place] [phone] Discharge Disposition: Home or Self Care 01/22/2025 2:30 PM CDT Office Visit Department of Obstetrics and Gynecology in [address] [phone] Xochitl Berg M.D. [address] [place] [phone] Scheduled Referrals Name Type Priority Associated Diagnoses Order Schedule Obstetrics and Gynecology Post Op (clinic) Outpatient Referral Routine Expected: 07/21/2024 (Approximate), Expires: 07/15/2027 documented as of this encounter Procedures Procedure Name Priority Date/Time Associated Diagnosis Comments SURGICAL PATHOLOGY Routine 07/14/2024 3:08 PM CDT Cervical Dysplasia Personal History LEEP PROCEDURE - LOOP ELECTRO EXCISION PROCEDURE 07/14/2024 2:32 PM CDT Cervical Dysplasia Personal History Case Notes DW(#3)/(9) documented in this encounter Results * Surgical Pathology (07/14/2024 3:08 PM CDT) 08/13/2024 2:22 PM CDT MKTO Report electronically signed by Alexandria Martinez MD 08/13/2024 2:22 PM CDT MKTO Specimen Received A. Cervical cone/LEEP stitch woodruff 12 o'clock 08/13/2024 2:22 PM CDT MKTO Clinical History Cervical dysplasia personal history 08/13/2024 2:22 PM CDT MKTO Gross Description Received labeled LEEP excision, there are 2 fragments and 1 complete cone. The partial cone aggregates to 2.0 x 2.0 x 0.4 cm. There is minimal pink-lindquist mucosa, unoriented and inked black. The complete cone measures 2.2 x 1.6 x 0.4 cm. The mucosa is pink-lindquist and is oriented with a stitch marking 12 o'clock, and inked as follows: endocervical margin black, ectocervical margin blue. ESB cassettes: A1 1st partial cone fragment A2 2nd partial cone fragment A3 12-3 o'clock, complete cone A4 3-6 o'clock, complete cone A5 6-9 o'clock, complete cone A6 9-12 o'clock, complete cone AF 08/13/2024 2:22 PM CDT MKTO Interpretation REACTIVATION DESCRIPTION The case is reactivated following discussion of procedural orientation with the surgeon. Please see underlined portion of comment below. FINAL DIAGNOSIS Cervix, LEEP excision: - Detached fragments of high-grade squamous intraepithelial lesion (MARTA III / severe squamous dysplasia) within unoriented tissue fragments. - Oriented LEEP specimen is negative for dysplasia; transformation zone cervix present. - Margin status is indeterminate due to high-grade squamous intraepithelial lesion present as detached fragments only. COMMENT The specimen consists of an oriented LEEP excision that is negative for dysplasia, as well as two additional unoriented tissue fragments. Review of the operative note reveals additional unoriented fragments are taken lateral to the original excision site. As dysplastic tissue is present only as detached fragments associated with the unoriented lateral excision fragments, definitive margin status cannot be determined. Seen in consultation with: Jennifer Sierra M.D. Digital imaging was used in the diagnostic assessment of this case. 08/13/2024 2:22 PM CDT MKTO Comment: REVISED RESULTS ----PREVIOUSLY REPORTED ---- FINAL DIAGNOSIS Cervix, LEEP excision: - Detached fragments of high-grade squamous intraepithelial lesion (MARTA III / severe squamous dysplasia) within unoriented tissue fragments. - Oriented LEEP specimen is negative for dysplasia; transformation zone cervix present. - Margin status is indeterminate due to high-grade squamous intraepithelial lesion present as detached fragments only. COMMENT The specimen consists of an oriented LEEP excision that is negative for dysplasia, as well as two additional unoriented tissue fragments. Review of the operative note reveals additional unoriented fragments are taken deep to the original excision site. As dysplastic tissue is present only as detached fragments associated with the unoriented deep excision fragments, this suggests dysplasia is present deep within the endocervical canal. Definitive margin status cannot be determined. Seen in consultation with: Jennifer Sierra M.D. Digital imaging was used in the diagnostic assessment of this case. Flagged as: (Reported 07/16/2024 10:17) Tissue (Other, Specify in Comments) 07/14/2024 3:08 PM CDT us Xochitl Berg M.D. LAB SURG PATH ORDERABLES Edite d Result - Final [facility] [address] [place] [address], [facility] MKTO [address] [address] documented in this encounter Visit Diagnoses Diagnosis Cervical Dysplasia Personal History- Primary Fibromyalgia Posttraumatic Stress Disorder Prolonged documented in this encounter Admitting Diagnoses Diagnosis Cervical Dysplasia Personal History documented in this encounter Administered Medications Inactive Administered Medications - up to 3 most recent administrations Medication Order MAR Action Action Date Dose Rate Site acetaminophen tablet 1,000 mg (TylenoL) 1,000 mg, oral, Once, On Sat07/14/24 at 1315, For 1 dose, Pre-Op Given 07/14/2024 1:11 PM CDT 1,000 mg chlorhexidine 0.12 % mouthwash 15 mL (Peridex) 15 mL, swish & spit, Once as needed, Chlorhexidine mouthwash (Peridex) should be given if patient did not complete oral care, if completion is greater than 4 hours prior to surgery or procedure start time and they do not have the opportunity to brush their teeth now (or at this time)., Starting on Sat07/14/24 at 1242, For 1 dose, Pre-Op, Instruct patient to swish entire content of Chlorhexidine 0.12% mouthwash (PERIDEX) 15 mL cup for 30 seconds, then spit, swish & spit. If patient is at risk for aspiration, apply Chlorhexidine 0.12% mouthwash to a swab and gently swab the patient's teeth and gums. Ensure swab is not oversaturated. Lactated Ringer's 30 mL/hr, intravenous, Continuous, Starting on Sat07/14/24 at 1300, Pre-Op New Bag 07/14/2024 3:12 PM CDT 30 mL/hr Rate/Dose Verify 07/14/2024 2:32 PM CDT 30 mL/h r New Bag 07/14/2024 1:11 PM CDT 30 mL/hr 30 mL/hr oxyCODONE IR tablet 10 mg (Roxicodone) 10 mg, oral, Every 4 hours PRN, severe pain or score 7-10 of 10, Starting on Sat07/14/24 at 1527, Administer if pain is unrelieved by acetaminophen oxyCODONE IR tablet 5 mg (Roxicodone) 5 mg, oral, Every 4 hours PRN, moderate pain or score 4-6 of 10, Starting on Sat07/14/24 at 1527, Administer if pain is unrelieved by acetaminophen sodium chloride 0.9 % injection 10 mL 10 mL, intravenous, As needed, line care, Starting on Sat07/14/24 at 1242, Pre- Op, Peripheral Intravenous Catheter and Rapid Infusion Catheter, prior to blood sampling, post blood transfusion or post blood sampling sodium chloride 0.9 % injection 3 mL 3 mL, intravenous, As needed, line care, Starting on Sat07/14/24 at 1242, Pre-Op, Prior to and following infusion and between multiple consecutive infusions: sodium chloride 0.9 % injection sodium chloride 0.9 % injection 3 mL 3 mL, intravenous, Every 12 hours scheduled, First dose on Sat07/14/24 at 2100, Pre-Op, Peripheral Intravenous Catheter and Rapid Infusion Catheter, when no infusion to maintain patency documented in this encounter Active and Recently Administered Medications Times are shown in CDT. Scheduled Medication Order 07/12/2024 07/13/2024 07/14/2024 acetaminophen tablet 1,000 mg (TylenoL) (COMPLETED) 1,000 mg, oral, Once, On Sat07/14/24 at 1315, For 1 dose, Pre-Op 1311 (Given - Provid er: Laila Green R.N.) acetaminophen tablet 1,000 mg (TylenoL) 1,000 mg, oral, 4 times daily, First dose on Sat07/14/24 at 1700, not to exceed 4 grams in 24 hours. sodium chloride 0.9 % injection 3 mL 3 mL, intravenous, Every 12 hours scheduled, First dose on Sat07/14/24 at 2100, Pre-Op, Peripheral Intravenous Catheter and Rapid Infusion Catheter, when no infusion to maintain patency sodium chloride 0.9 % injection 3 mL 3 mL, intravenous, Every 12 hours scheduled, First dose on Sat07/14/24 at 2100, Pre-Op, Peripheral Intravenous Catheter and Rapid Infusion Catheter, when no infusion to maintain patency Continuous Medication Order 07/12/2024 07/13/2024 07/14/2024 Lactated Ringer's 30 mL/hr, intravenous, Continuous, Starting on Sat07/14/24 at 1300, Pre-Op 1311 (New Bag - Prov ider: Laila Green R.N.)1432 (Rate/Dose Verify - Provider: aZyra Fischer, RAY, TRAVELING SALES EXECUTIVE)1512 (New Bag - Provider: Joanna L Brenhaug, LABORER PIPELINES, TRAVELING SALES EXECUTIVE, DNAP) Lactated Ringer's 100 mL/hr, intravenous, Continuous, Starting on Sat07/14/24 at 1315, Pre-Op 1315 (Due) Lactated Ringer's 40 mL/hr, intravenous, Continuous, Starting on Sat07/14/24 at 1545 1545 (Due) PRN Medication Order 07/12/2024 07/13/2024 07/14/2024 chlorhexidine 0.12 % mouthwash 15 mL (Peridex) 15 mL, swish & spit, Once as needed, Chlorhexidine mouthwash (Peridex) should be given if patient did not complete oral care, if completion is greater than 4 hours prior to surgery or procedure start time and they do not have the opportunity to brush their teeth now (or at this time)., Starting on Sat07/14/24 at 1242, For 1 dose, Pre-Op, Instruct patient to swish entire content of Chlorhexidine 0.12% mouthwash (PERIDEX) 15 mL cup for 30 seconds, then spit, swish & spit. If patient is at risk for aspiration, apply Chlorhexidine 0.12% mouthwash to a swab and gently swab the patient's teeth and gums. Ensure swab is not oversaturated. haloperidol lactate injection 1 mg (HaldoL) 1 mg, intravenous, Every 6 hours PRN, nausea, vomiting, Starting on Sat07/14/24 at 1527, For 48 hours, Total of 3 doses in 24 hour period. RASS must be -2 or higher to administer. Reassess for nausea or vomiting after at least 10 minutes. If nausea or vomiting persists administer next ordered antiemetic medications (order for antiemetic medication administration ondansetron then haloperidol then prochlorperazine) lidocaine-EPINEPHrine 1 %-1:100,000 injection (Xylocaine w/epi) (CANCELED) As needed, Starting on Sat07/14/24 at 1510, Intra-Op 1510 (Given - Provid er: Xochitl Berg M.D.) naloxone injection 0.2 mg 0.2 mg, intravenous, As needed, respiratory depression, Starting on Sat07/14/24 at 1527, For RASS Score -4 or less, respiratory rate of less than 8 breaths/min. Notify provider/service and rapid response team (if available at institution). ondansetron (PF) injection 4 mg (Zofran) 4 mg, intravenous, Every 6 hours PRN, nausea, vomiting, Starting on Sat07/14/24 at 1527, For 48 hours, Reassess for nausea or vomiting after at least 10 minutes. If nausea or vomiting persists administer next ordered antiemetic medications (order for antiemetic medication administration ondansetron then haloperidol then prochlorperazine). oxyCODONE IR tablet 10 mg (Roxicodone)(Linked Group 1) 10 mg, oral, Every 4 hours PRN, severe pain or score 7-10 of 10, Starting on Sat07/14/24 at 1527, Administer if pain is unrelieved by acetaminophen oxyCODONE IR tablet 5 mg (Roxicodone)(Linked Group 1) 5 mg, oral, Every 4 hours PRN, moderate pain or score 4-6 of 10, Starting on Sat07/14/24 at 1527, Administer if pain is unrelieved by acetaminophen potassium iodide and iodine 5 % solution (Lugols) (CANCELED) As needed, Starting on Sat07/14/24 at 1512, Intra-Op 1512 (Given - Provid er: Xochitl Berg M.D.) prochlorperazine injection 5 mg (Compazine) 5 mg, intravenous, Every 6 hours PRN, nausea, vomiting, Starting on Sat07/14/24 at 1527, For 48 hours, RASS must be -2 or higher to administer. Reassess for nausea/vomiting after at least 10 minutes. If nausea or vomiting persists administer next ordered antiemetic medications (order for antiemetic medication administration ondansetron then haloperidol then prochlorperazine) sodium chloride 0.9 % injection 10 mL 10 mL, intravenous, As needed, line care, Starting on Sat07/14/24 at 1242, Pre-Op, Peripheral Intravenous Catheter and Rapid Infusion Catheter, prior to blood sampling, post blood transfusion or post blood sampling sodium chloride 0.9 % injection 10 mL 10 mL, intravenous, As needed, line care, Starting on Sat07/14/24 at 1251, Pre-Op, Peripheral Intravenous Catheter and Rapid Infusion Catheter, prior to blood sampling, post blood transfusion or post blood sampling sodium chloride 0.9 % injection 3 mL 3 mL, intravenous, As needed, line care, Starting on Sat07/14/24 at 1242, Pre-Op, Prior to and following infusion and between multiple consecutive infusions: sodium chloride 0.9 % injection sodium chloride 0.9 % injection 3 mL 3 mL, intravenous, As needed, line care, Starting on Sat07/14/24 at 1251, Pre-Op, Prior to and following infusion and between multiple consecutive infusions: sodium chloride 0.9 % injection Linked Groups Order Group 1: oxyCODONE IR tablet 5 mg (Roxicodone)Jump to med 5 mg, oral, Every 4 hours PRN, moderate pain or score 4-6 of 10, Starting on Sat07/14/24 at 1527, Administer if pain is unrelieved by acetaminophen Or oxyCODONE IR tablet 10 mg (Roxicodone)Jump to med 10 mg, oral, Every 4 hours PRN, severe pain or score 7-10 of 10, Starting on Sat07/14/24 at 1527, Administer if pain is unrelieved by acetaminophen documented in this encounter Additional Health Concerns Assessment Noted Time PHQ-9 Depression Total Score: 18 025 10:50 AM EPIDEMIOLOGY INTERNSHIP documented as of this encounter Care Teams Flux Core Welder Relationship Specialty Start Date End Date Bela Jauregui APRN, C.N.[place] [place] [phone] PCP - General Family Medicine 08/11/20 documented as of this encounter
--- OUTSIDE RECORDS SUMMARY | 2024-08-27 18:09 | XMS_ITS | Clinical Summary ---
Author Organization [facility] Address [address] [place] [address] Care Team Providers Care Fish Machine Feeder Name Role Phone Bela Jauregui APRN, C.NLaPLa Primary Care Pro vider Source Comments Patient records contain information from all sites at [facility]. For routine questions regarding patient records, call [phone] during business hours, M-F 8:00 AM - 5:00 PM Central Time. Record requests for emergency care only can be directed to [phone] at any time.[facility] Allergies Active Allergy Reactions Criticality Noted Date Comments Amoxicillin Hives with other symptoms including blisters High 03/18/2024 Clindamycin Hives only, no other systemic symptoms Medium 01/07/2024 Hives Duloxetine Hives (Reselect Reaction) 09/07/2021 Doxycycline Hives (Reselect Reaction) 08/22/2022 Gabapentin Rash Medium 12/10/2022 Linezolid Other (see comments) 07/22/2023 Father almost from it. Penicillins Hives (Reselect Reaction) 11/11/2008 Prednisone Hives only, no other systemic symptoms Medium 01/07/2024 Legs turned purple with hives Medications * This document contains information received from the source organization and may not represent a complete record from that organization. acetaminophen (TYLENOL) 325 mg tablet Take 2 tablets by mouth every 4 (four) hours as needed. 12/09/19 09 Active medical cannabis oil inhalation Inhale. THC component: CBD component: Active diphenhydrAMINE (BENADRYL) 50 mg capsule Take 50 mg by mouth every 6 (six) hours as needed. Active EPINEPHrine 0.3 mg/0.3 mL injection syringeIndication s:Urticaria Idiopathic Inject 0.3 mL (0.3 mg total) intramuscularly as needed for anaphylaxis. Inject into thigh. 1 each 3 03/05/20 24 Active cetirizine (ZyrTEC) 10 mg tablet Take 10 mg by mouth daily as needed. Active fluticasone furoate (FLONASE SENSIMIST NASAL) Administer 2 sprays into nostril(s) daily. Active clobetasoL (Temovate) 0.05 % ointmentIndicatio ns:Pompholyx Apply 1 Application topically daily as needed (hand rash). Apply to hand rash. 30 g 2 03/10/20 24 Active multivitamin-adul t (multivitamin with iron-minerals) 9 mg iron/15 mL liquid 15 mL daily. Active multivitamin-iron -FA 18-400 mg-mcg tablet Take 1 tablet by mouth daily. Once every other day Active cannabidiol, CBD, (CANNABIDIOL ORAL) Inhale. Active acetaminophen (TylenoL) 500 mg tablet Take 2 tablets (1,000 mg total) by mouth every 6 (six) hours as needed for pain. Alternate with ibuprofen every 3 hours. Do not exceed 4000 mg or 4 g in 24 hours. 60 tablet 07/15/19 25 Active ibuprofen 600 mg tablet Take 1 tablet (600 mg total) by mouth every 6 (six) hours as needed for pain. Alternate with acetaminophen every 3 hours. 30 tablet 07/15/19 25 Active ondansetron ODT (Zofran-ODT) 4 mg disintegrating tablet Dissolve 1 tablet (4 mg total) in the mouth every 8 (eight) hours as needed for nausea or vomiting. 20 tablet 07/15/19 25 Active Active Problems Problem Noted Date Diagnosed Date Unspecified Open Wound Right Middle Finger Without Damage To Nail Initial 07/27/2024 Cervical Dysplasia Personal History 05/27/2024 Abnormal Pap Smear Cervix 05/06/2024 Overview (05/21/2024): 08/07/2001 LSIL 09/09/2001 MARTA 1 08/24/2021 ASCUS, + HPV 16. 09/07/2021 Colposcopy performed, no biopsies taken. Co-test in 1 year. 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 Date Type Department Care Team Description 08/06/2024 9:00 AM CDT Infusion Department of Allergy and Immunology in [address] [phone] Ilya Barajas M.D. Urticaria Idiopathic (Primary Dx) Discharge Disposition: Home or Self Care 07/27/2024 12:26 PM CDT - 07/27/2024 2:03 PM CDT Emergency [facility] [address] [place] [phone] Xochitl Eckert APRN, C.N.P., M.S.N. Unspecified Open Wound Right Middle Finger Without Damage To Nail Initial (Primary Dx) Discharge Disposition: Home or Self Care 07/23/2024 3:45 PM CDT Virtual Visit Department of Obstetrics and Gynecology in [address] [phone] Xochitl Berg M.D. Lesion Severe Squamous Intraepithelial Cervix (Severe Dysplasia) (Primary Dx) Discharge Disposition: Home or Self Care 07/14/2024 2:40 PM CDT - 07/14/2024 4:04 PM CDT Surgery Outpatient Procedure Center in [address] [phone] Xochitl Berg M.D. LEEP PROCEDURE - LOOP ELECTRO EXCISION PROCEDURE 07/14/2024 2:32 PM CDT Anesthesia Event Outpatient Procedure Center in [address] [phone] Sosa Crandall M.D. Shantz, Kelly R, APRN, EXHAUST AND MUFFLER REPAIRER 07/14/2024 12:00 PM CDT - 07/14/2024 4:45 PM CDT Hospital Encounter Outpatient Procedure Center in [address] [phone] Xochitl Berg M.D. Cervical Dysplasia Personal History Discharge Disposition: Home or Self Care 07/09/2024 10:30 AM CDT Infusion Department of Allergy and Immunology in [address] [phone] Ilya Barajas M.D. Urticaria Idiopathic (Primary Dx) Discharge Disposition: Home or Self Care 07/07/2024 11:00 AM CDT Office Visit Department of Allergy and Immunology in [address] [phone] Ilya Barajas M.D. Urticaria Idiopathic (Primary Dx); Swelling Face; Pompholyx; Rhinitis Allergic Discharge Disposition: Home or Self Care 07/02/2024 Orders Only Department of Family Medicine in [place], [place] [address] [place] [phone] Bela Jauregui APRN, C.N.P. 06/30/2024 Orders Only Department of Family Medicine in [place], [place] [address] [place] [phone] Bela Jauregui APRN, C.N.P. 06/30/2024 Clinical Communication Department of Neurology in [address] [phone] Yessenia Bonilla R.N. Triage 06/26/2024 Orders Only Department of Family Medicine in [place], [place] [address] [place] [address] Pat Souza APRN, C.N.P. Headache Chronic (Primary Dx) 06/11/2024 10:15 AM ASP NET PROGRAMMER Infusion Department of Allergy and Immunology in [place] [address] [place] [address] Ilya Barajas M.D. Urticaria Idiopathic (Primary Dx) Discharge Disposition: Home or Self Care from Last 3 Months Immunizations Immunization Administration Dates Next Due 9vHPV 03/13/2023(Deferred: Other - patient no showed for appt today.),08/08/2022,08/24/2021 HepB Adult (HEPLISAV-B) 09/07/2022,08/08/2022 Influenza, Unspecified 07/22/2023(Deferred: Marcelle ent decision) Td (Adult), adsorbed 09/27/2004 Tdap 07/22/2023(Deferred: Patient decision),07/28/2018 influenza vaccine quad (FLUZONE/FLUARIX) (6 months and older)(PF) 04/25/2022 Family History Medical History Relation Name Comments Arthritis Father 2 Serena Possibly due or early onset due to medications she was on Colon cancer Father 2 Serena 2023 Depression Father 2 Serena Diabetes Father 2 Serena Lost weight so considered pre Sleep apnea Father 2 Serena Thyroid disease Father 2 Serena [facility] Arthritis Mother 1 Serena Depression Mother 1 Serena Diabetes Mother 1 Serena Sleep apnea Mother 1 Serena Thyroid disease Mother 1 Serena Anxiety disorder Mother 2 Serena Arthritis Mother 2 Serena Possibly due or early onset due to medications she was on Depression Mother 2 Serena Diabetes Mother 2 Serena Lost weight so considered pre Sleep apnea Mother 2 Serena Thyroid disease Mother 2 Serena Mama theough medictions Diabetes Paternal Grandmother Tyrone [employer] cecilia fathers side Anxiety disorder Sister 1 Yen Clotting disorder Sister 1 Yen Depression Sister 1 Yen Obesity Sister 2 Aida Thyroid disease Sister 2 Aida Uterine cancer Sister 2 Aida Hysterectomy 2023 Anesthesia problems Sister 3 [place] Clotting disorder Sister 3 [place] Post knee sx (assumed control related) Obesity Sister 3 Alexandria Thyroid disease Sister 3 Alexandria Relation Name Status Comments Father 1 Jorge Alive Father 2 Serena Mother 1 Serena Alive Mother 2 Serena Alive Paternal Grandmother Tyrone Alive Sister 1 Yen Alive Sister 2 Aida Sister 3 Alexandria Social History Tobacco Use Types Packs/Day Years Used Date Smoking Tobacco: Never Cigarettes Qu it: 04/15/2004 Passive Smoke Exposure: Yes Smokeless Tobacco: Never Tobacco Cessation:Counseling Given: Not Answered Comments:I was a social smoker foe about 2 years Alcohol Use Standard Drinks/Week Comments Not Currently 2 (1 standard drink = 0.6 oz pur e alcohol) Occassionally [facility] Utilities Answer Date Recorded In the past 12 months has e [employer], gas, oil, or water company threatened to [...] week 03/05/2022 How often do you attend [facility] or jewish services? More than 4 times per year 03/05/2022 Do you belong to any clubs o r organizations such as anabaptist groups, unions, fraternal or athletic groups, or [...] Answer Date Recorded PHQ-2 Score 2 04/28/2024 [facility] - [...] have a [facility] place to live 04/16/2024 Education Answer Date Recorded What is the highest level of school you have completed or the highest degree you have received? Associate degree: occupational, technical, or vocational program 03/05/2022 Comments No Sex and Gender Information Value Date Recorded Sex Assigned at Female 08/18/2021 11:37 AM CDT Legal Sex Female 9:05 PM ASP NET PROGRAMMER Gender Identity Female 03/14/2020 12:38 PM ASP NET PROGRAMMER Sexual Orientation Not on file Last Filed [...] Mass Index 20.03 07/27/2024 11:57 AM CDT Plan of Treatment Upcoming Encounters Date Type Department Care Team (Latest Contact Info) Description 09/03/2024 9:00 AM CDT Infusion Department of Allergy and Immunology in [address] [phone] Ilya Barajas M.D. [address] [place] [phone] Discharge Disposition: Home or Self Care 09/08/2024 2:30 PM CDT Comprehensive Visit Department of Neurology in [address] [phone] Ang Sommer M.B.BLaS. [address] [place] [phone] Discharge Disposition: Home or Self Care 10/01/2024 9:00 AM CDT Infusion Department of Allergy and Immunology in [address] [phone] Ilya Barajas M.D. [address] [place] [phone] Discharge Disposition: Home or Self Care 10/29/2024 9:00 AM CDT Infusion Department of Allergy and Immunology in [place], [place] [address] [place] [phone] Ilya Barajas M.D. [address] [place] [phone] Discharge Disposition: Home or Self Care 01/22/2025 2:30 PM CDT Office Visit Department of Obstetrics and Gynecology in [address] [phone] Xochitl Berg M.D. [address] [place] [phone] Health Maintenance Due Date Last Done Comments CT Colonography 1974 Pneumococcal vaccine (0-49 years) (1 of 2 - PCV) 1993 Zoster Vaccines (1 of 2) 1993 COVID-19 Vaccine (5 - 2023- season) 2023 04/25/2022, 05/09/2021, 08/24/2020, Additional history exists Influenza Vaccine (#1) 2024 04/25/2022 Mammogram 03/09/2025 03/09/2024, 07/0 08/2022, 10/02/2021, Additional history exists Cervical/Vaginal Cancer Surveillance (Annual) 05/21/2025 05/21/2024, 05/06/2024, 08/24/2021 Tobacco Cessation counseling 07/27/2025 07/27/2024, 04/28/2024 Lipid (Cholesterol) Screening 09/29/2025 09/29/2020 Cologuard 02/23/2027 02/24/2024 Fasting Glucose for Diabetes Screening 04/28/2027 04/28/2024, 10/29/2023, 09/09/2023, Additional history exists DTaP,Tdap,and Td Vaccines (2 - Td or Tdap) 07/28/2028 07/28/2018, 09/27/2004 Colonoscopy 03/18/2029 03/18/2024 Colorectal Cancer Surveillance 03/18/2029 HIV Screening Completed 08/24/2021, 03/0 04/2018 (Performed elsewhere) Hepatitis B Vaccines Completed 09/07/2022, 08/09/19 23 Colonoscopy After Positive Cologuard Discontinued 03/18/2024 Depression Screening (Annual PHQ-2) Completed 04/28/2024 Cervical/Vaginal Cancer Screening Discontinued 05/21/2024, 05/06/2024, 05/06/2024, Additional history exists Colposcopy Procedure Discontinued 05/21/2024, 09/08/19 22 IPV Vaccines Aged Out No longer eligi ble based on patient's age to complete this topic Procedures Procedure Name Priority Date/Time Associated Diagnosis Comments SURGICAL PATHOLOGY Routine 07/14/2024 3:08 PM CDT Cervical Dysplasia Personal History LDA ANE NON-SURGICAL AIRWAY Routine 07/14/2024 2:42 PM CDT LEEP PROCEDURE - LOOP ELECTRO EXCISION PROCEDURE 07/14/2024 2:32 PM CDT Cervical Dysplasia Personal History Case Notes DW(#3)/(9) MS COLPOSCOPY CERVIX W BX & ECC Routine 05/21/2024 10:00 AM ASP NET PROGRAMMER High Risk Human Papillomavirus Deoxyribonucleic Acid Test Positive Cervix HPV WITH GENOTYPING, PCR, THINPREP Routine 05/06/2024 1:46 PM ASP NET PROGRAMMER COMPREHENSIVE METABOLIC PANEL, S/P Routine 04/28/2024 12:01 PM ASP NET PROGRAMMER Headache Chronic Mood Disorder (HCC) Urticaria Idiopathic Well Adult Examination Normal COLONOSCOPY Routine 03/18/2024 8:42 AM ASP NET PROGRAMMER Positive Cologuard Stool Deoxyribonucleic Acid Test BI BREAST SCREENING BILATERAL WITH TOMOSYNTHESIS RAD - Routine (most inpatients and all outpatients) 03/09/2024 3:30 PM ASP NET PROGRAMMER Screening Mammogram Breast Cancer COLOGUARD Routine 02/24/2024 8:00 AM ASP NET PROGRAMMER Screening Cancer Colon HIV-1/-2 AG AND AB SCREEN, PLASMA Routine 08/24/2021 11:22 AM CDT Screening For Venereal Disease LIPID PANEL, S Routine 09/29/2020 12:04 PM CDT Screening Lipid from Last 3 Months or Most Recently Relevant to Health Maintenance Results * Surgical Pathology (07/14/2024 3:08 PM [...] PATH ORDERABLES Edite d Result - Final [facility] [place] [address], [facility] [address] [address] * LDA ANE NON-SURGICAL AIRWAY (07/14/2024 2:42 [...] Fischer APRN, CRNA ANESTHESIA ORDERABLES Final Result * MS COLPOSCOPY CERVIX W BX & ECC (05/21/2024 10:00 AM ASP NET PROGRAMMER) Narrative MMODAL - 05/21/2024 10:00 AM ASP NET PROGRAMMER Orquidea Dawn APRN, C.N.PLa, M.S.N. 05/21/2024 12:10 PM Colposcopy Performed by: Orquidea Dawn APRN, C.N.PLa, M.S.N. Authorized by: Orquidea Dawn APRN C.N.PLa, M.S.N. Care team members present 1. Agata Coburn, C.MLaALa PROCEDURE DETAILS Procedure: colposcopy with cervical biopsy and ECC Acetic Acid applied: yes Acetic Acid strength: 5% Iodine (Lugol's) solution applied: yes Under colposcopic examination the transition zone seen in entirety: yes Endocervical curettage specimen obtained: yes (Brief, due to patient's stress reaction at that point in the procedure) Location of biopsies: cervix Number of cervical biopsies: 2 Hemostasis with: silver nitrate and direct pressure Findings: epithelial thickening, acetowhite and atypical vascularity Transformation zone visualized: completely Patient's tolerance of procedure: patient tolerated the procedure well with no immediate complications CONSENT Consent obtained: written (Risks, benefits and alternatives were discussed and a written Informed Consent was obtained. Please see Informed Consent form for further details.) UNIVERSAL PROTOCOL All relevant documentation and testing were reviewed and available. All required blood products, implants, devices and or special equipment were made available as applicable. Pre-procedure verification was conducted and the correct site was marked if required. A fire risk and smoke assessment were done as applicable. The procedural time-out to verify correct patient, correct side/site, and procedure was conducted prior to performing the procedure and confirmed in a procedural pause. PRE-PROCEDURE DETAILS Assessment - reasonably exclude based on: PREG criteria Procedure purpose: diagnostic Indications: HPV 16/18+ and HSIL Appropriate hand hygiene, gown, cap, mask, protective eyewear, sterile gloves, skin preparation, sterile drape, and strict aseptic technique were utilized as applicable for the procedure.: yes SEDATION / ANESTHESIA Anesthesia method: topical application (Lidocaine gel on speculum) POST-PROCEDURE DETAILS Procedure completed successfully: yes Complications: no apparent complications Comments She did start to feel panic towards the end of the procedure, with ECC. We were able to get her through with coaching and distraction techniques. us Orquidea Dawn APRN C.N.P., M.S.N. PROCEDURE/NC NOR SURGICAL ORDERABLES Final Result MMODAL NA * (ABNORMAL) HPV with Genotyping, PCR, ThinPrep (05/06/2024 1:46 PM ASP NET PROGRAMMER) HPV with Genotyping, ThinPrep, PCR Positive(A) Negative 05/08/2024 12:49 PM ASP NET PROGRAMMER [facility]TO Comment: Positive for high risk HPV by nucleic acid amplification. Positive for one or more of the following high risk types: 16, 18, 31, 33, 35, 39, 45, 51, 52, 56, 58, 59, 66, and 68. See genotyping result. HPV High Risk type 16, PCR Positive(A) Negative 05/08/2024 12:49 PM ASP NET PROGRAMMER [facility] HPV High Risk type 18/45, PCR Negative Negative 05/08/2024 12:49 PM ASP NET PROGRAMMER MKTO 05/06/2024 1:46 PM ASP NET PROGRAMMER 05/07/2024 6:56 AM ASP NET PROGRAMMER us Brandon Mejias APRNNLaP., M.S.N. LAB MICROBIOLOGY - GENERAL ORDERABLES Final Result [facility] [address] [place] [address], [facility] [address] [facility] [address] [place] [address] * Comprehensive Metabolic Panel (04/28/2024 12:01 PM ASP NET PROGRAMMER) [facility] Potassium, P 4.3 3.6 - 5.2 mmol/L 04/28/2024 4:05 PM ASP NET PROGRAMMER NPRG Sodium, P 139 135 - 145 mmol/L 04/28/2024 4:05 PM ASP NET PROGRAMMER NPRG Chloride, P 104 98 - 107 mmol/L 04/28/2024 4:05 PM ASP NET PROGRAMMER NPRG Bicarbonate, P 27 22 - 29 mmol/L 04/28/2024 4:06 PM ASP NET PROGRAMMER NPRG Anion Gap, P 8 7 - 15 04/28/2024 4:05 PM ASP NET PROGRAMMER NPRG BUN (Blood Urea Nitrogen), P 13 6 - 21 mg/dL 04/28/2024 4:06 PM ASP NET PROGRAMMER NPRG Creatinine 0.68 0.59 - 1.04 mg/dL 04/28/2024 4:06 PM ASP NET PROGRAMMER NPRG Estimated GFR (eGFR) >90 >=60 mL/min/BS A 04/28/2024 4:06 PM ASP NET PROGRAMMER NPRG Comment: Estimated GFR calculated using the 2020 CKD_EPI creatinine equation. Calcium, Total, P 9.3 8.6 - 10.0 mg/dL 04/28/2024 4:06 PM ASP NET PROGRAMMER NPRG Glucose, P 95 70 - 140 mg/dL 04/28/2024 4:06 PM ASP NET PROGRAMMER NPRG Protein, Total, P 6.9 6.3 - 7.9 g/dL 04/28/2024 4:06 PM ASP NET PROGRAMMER NPRG Albumin, P 4.3 3.5 - 5.0 g/dL 04/28/2024 4:06 PM ASP NET PROGRAMMER NPRG Aspartate Aminotransferase (AST), P 15 8 - 43 U/L 04/28/2024 4:06 PM ASP NET PROGRAMMER NPRG Alkaline Phosphatase, P 77 35 - 104 U/L 04/28/2024 4:06 PM ASP NET PROGRAMMER NPRG Alanine Aminotransferase (ALT), P 16 7 - 45 U/L 04/28/2024 4:06 PM ASP NET PROGRAMMER NPRG Bilirubin, Total, P 0.2 0.0 - 1.2 mg/dL 04/28/2024 4:06 PM ASP NET PROGRAMMER NPRG Blood (Blood, Venous) 04/28/2024 12:01 PM ASP NET PROGRAMMER 04/28/2024 3:32 PM ASP NET PROGRAMMER us Bela Jauregui APRN, C.N.P. LAB BLOOD ADD-ON Final Result [facility] [address] [place] [address], [place] NPRG [facility] [address] [place] [address] * BI Breast Screening Bilateral with Tomosynthesis (03/09/2024 3:30 PM ASP NET PROGRAMMER) Anatomical Region Laterality Modality Breast, Breast Imaging RST L OS, Breast Imaging ARZ LOS, Breast Imaging FLA LOS Bilateral Mammography Impressions 03/09/2024 4:24 PM ASP NET PROGRAMMER Benign. RECOMMENDATION: Annual Screening Mammogram ASSESSMENT: BI-RADS: 2: Benign. Narrative 03/09/2024 4:24 PM ASP NET PROGRAMMER EXAM: BI BREAST SCREENING BILATERAL WITH TOMOSYNTHESIS Current study was evaluated with a Computer Aided Detection (CAD) system. INDICATION: Screening mammogram. COMPARISON: Prior exam(s) were available and reviewed for comparison. DENSITY: c. The breast(s) are heterogeneously dense, which may obscure small masses. FINDINGS: No mammographic findings of malignancy. Multiple (greater than 3) bilateral circumscribed masses, consistent with likely cysts. Procedure Note Harrison Palmer M.D. - 03/09/2024 EXAM: BI BREAST SCREENING BILATERAL WITH TOMOSYNTHESIS Current study was evaluated with a Computer Aided Detection (CAD) system. INDICATION: Screening mammogram. COMPARISON: Prior exam(s) were available and reviewed for comparison. DENSITY: c. The breast(s) are heterogeneously dense, which may obscuresmall masses. FINDINGS: No mammographic findings of malignancy. Multiple (greater than3) bilateral circumscribed masses, consistent with likely cysts. IMPRESSION: Benign. RECOMMENDATION: Annual Screening Mammogram ASSESSMENT: BI-RADS: 2: Benign. Bela Jauregui APRN, C.N.P. IMG BI PROCEDURES Final Result * (ABNORMAL) Cologuard - Sent Out Lab (02/24/2024 8:00 AM ASP NET PROGRAMMER) Result Positive( A) Negative 03/03/2024 8:33 PM ASP NET PROGRAMMER EXLI Comment: POSITIVE TEST RESULT. A positive Cologuard result should be followed with a colonoscopy or visual examination of the colon. The normal value (reference range) for this assay is negative. TEST DESCRIPTION: Composite algorithmic analysis of stool DNA-biomarkers with hemoglobin immunoassay. Quantitative values of individual biomarkers are not reportable and are not associated with individual biomarker result reference ranges. Cologuard is intended for colorectal cancer screening of adults of either sex, 45 years or older, who are at average-risk for colorectal cancer (CRC). Cologuard has been approved for use by the U.S. FDA. The performance of Cologuard was established in a cross sectional study of average-risk adults aged 50-84. Cologuard performance in patients ages 45 to 49 years was estimated by sub-group analysis of near-age groups. Colonoscopies performed for a positive result may find as the most clinically significant lesion: colorectal cancer [4.0%], advanced adenoma (including sessile serrated polyps greater than or equal to 1cm diameter) [20%] or non- advanced adenoma [31%]; or no colorectal neoplasia [45%]. These estimates are derived from a prospective cross-sectional screening study of 10,000 individuals at average risk for colorectal cancer who were screened with both Cologuard and colonoscopy. (Miguelangel Eldridge al, N Engl J Med 2014;370(14):8368-6337.) Cologuard may produce a false negative or false positive result (no colorectal cancer or precancerous polyp present at colonoscopy follow up). A negative Cologuard test result does not guarantee the absence of CRC or advanced adenoma (pre-cancer). The current Cologuard screening interval is every 3 years. ([place] [employer] Society and U.S. Multi-Society Task Force). Cologuard performance data in a 10,000 patient pivotal study using colonoscopy as the reference method can be accessed at the following location: www.Dokkankom/results. Additional description of the Cologuard test process, warnings and precautions can be found at www.PHARMAJETrd.com. Stool (Stool) 02/24/2024 8:0 0 AM ASP NET PROGRAMMER 02/26/2024 10:01 AM ASP NET PROGRAMMER us Bela Jauregui APRN, C.N.P. LAB BODY FLUIDS A ND STOOLS ORDERABLES Final Result [facility] [address] [place] [id number] [facility] [address] [place] [address], [address] [place] [address] * HIV-1/-2 Ag and Ab Screen, Plasma [...] CDT 08/24/2021 5:50 PM CDT Orquidea Dawn APRN, C.N.P., M.S.N. LAB MICROBIO LOGY - BLOOD ORDERABLES Final Result [facility] [address] [place] [address], [facility] in [place] [address] * (ABNORMAL) Lipid Panel (09/29/2020 12:04 PM CDT) Pathologist [facility] Cholesterol, Total 205(H) mg/dL 2020 4:14 PM [...] Bela Jauregui APRN, C.N.P. LAB BLOOD ADD-ON Final Result [facility] [address] [place] [address], [place] NPRG [facility] [address] [place] [address] from Last 3 Months or Most Recently Relevant to Health Maintenance Insurance [facility] [place] [address] Advance Directives For more information, please contact: [phone] * Full Code (Latest Code Status on File) Date Activated Date Inactivated Comments 07/14/2024 3:27 PM 07/14/2024 6:48 PM Question Answer Comments Full Code: Discussed * Full Code Date Activated Date Inactivated Comments 07/14/2024 12:42 PM 07/14/2024 3:27 PM Question Answer Comments Full Code: Discussed * Full Code Date Activated Date Inactivated Comments 03/18/2024 8:21 AM 03/19/2024 5:39 AM Question Answer Comments Full Code: Not Discussed Due to: Patient not available Care Teams Fish Machine Feeder Relationship Specialty Start Date End Date Bela Jauregui APRN, C.N.P. [address] [place] [phone] PCP - General Family Medicine 08/11/20
--- OUTSIDE RECORDS SUMMARY | 2024-08-27 18:09 | XMS_ITS | Encounter Summary ---
Author Organization [facility] Address [address] [place] [address] Care Team Providers Care Signal Person Name Role Phone Bela Jauregui APRN C.N.P. Primary Care Pro vider Reason for Visit * Auth/Cert (Routine) Specialty Diagnoses / Procedures Referred By Linnea t Referred To Contact Diagnoses Cervical Dysplasia Personal History Cervical Dysplasia Personal History [Z87.410] Procedures PA CONIZATION CX EXCISN LOOP ELEC LEEP PROCEDURE - LOOP ELECTRO EXCISION PROCEDURE Xochitl Berg M.D. [address] [place] [phone] Phone: tel: fax: Referral ID Status Reason Start Date Expiration Date Visits Re quested Visits Authorized [id number] 1 1 Encounter Details Date Type Department Care Team (Late st Contact Info) Description 07/14/2024 2:40 PM CDT - 07/14/2024 4:04 PM CDT Surgery Outpatient Procedure Center in [address] [phone] Xochitl Berg M.D. [address] [place] [phone] LEEP PROCEDURE - LOOP ELECTRO EXCISION PROCEDURE Social History Tobacco Use Types Packs/Day Years Used Date Smoking Tobacco: Never Cigarettes Qu it: 04/15/2004 Passive Smoke Exposure: Yes Smokeless Tobacco: Never Comments:I was a social smok er foe about 2 years Alcohol Use Standard Drinks/Week Comments Not Currently 2 (1 standard drink = 0.6 oz pur e alcohol) Occassionally [facility] Utilities Answer Date Recorded In [...] often do you attend chur ch or advent services? More than 4 times per year 03/05/2022 Do you belong to any clubs o r organizations such as mu-ism groups, unions, fraternal or athletic groups, or [...] Answer Date Recorded PHQ-2 Score 2 04/28/2024 [facility] of Occupat ional [facility] - Occupational Stress Questionnaire Answer Date [...] your living situation today? [facility] 04/16/2024 Education Answer Date Recorded What is the highest level of school you have completed or the highest degree you have received? Associate degree: occupational, technical, or vocational program 03/05/2022 Comments No Sex and Gender Information Value Date Recorded Sex Assigned at Female 08/18/2021 11:37 AM CDT Legal Sex Female 9:05 PM HOME VISITOR Gender Identity Female 03/14/2020 12:38 PM HOME VISITOR Sexual Orientation Not on file documented as of this encounter Last Filed Vital Signs Vital Sign Reading Time Taken Comments Blood Pressure 107/66 07/14/2024 4:00 PM CDT Pulse 61 07/14/2024 4:00 PM CDT Temperature 36.4 C (97.5 F) 07/14/2024 3:22 PM CDT Respiratory Rate 17 07/14/2024 4:00 PM CDT Oxygen Saturation 95% 07/14/2024 4:00 PM CDT Inhaled Oxygen Concentration - - [...] mg iron/15 mL liquid 15 mL daily. [id number]-[id number] A 18-400 mg-mcg tablet Take 1 tablet [...] weight so considered pre Thyroid disease Father Serena Mama theough medictions Arthritis Father Serena Possibly [...] Infusion Department of Allergy and Immunology in [place], [place] [address] [place] [phone] Ilya Barajas M.D. [address] [place] [phone] Discharge Disposition: Home or Self Care 09/08/2024 2:30 PM CDT Comprehensive Visit Department of Neurology in [address] [phone] Ang Sommer M.B.BLaS. [address] [place] [phone] Discharge Disposition: Home or Self Care 10/01/2024 9:00 AM CDT Infusion Department of Allergy and Immunology in [place] [address] [place] [phone] Ilya Barajas M.D. [address] [place] [phone] Discharge Disposition: Home or Self Care 10/29/2024 9:00 AM CDT Infusion Department of Allergy and Immunology in [place] [address] [place] [phone] Ilya Barajas M.D. [address] [place] [phone] Discharge Disposition: Home or Self Care 01/22/2025 2:30 PM CDT Office Visit Department of Obstetrics and Gynecology in [address] [phone] Xochitl Berg M.D. [address] [place] [phone] Scheduled Referrals Name Type Priority Associated Diagnoses [...] PATH ORDERABLES Edite d Result - Final [facility] [place] [address], [facility] [address] [address] documented in this encounter Visit Diagnoses Diagnosis Cervical Dysplasia Personal History- Primary Fibromyalgia Posttraumatic Stress Disorder Prolonged Cervical Dysplasia Personal History documented in this encounter Admitting Diagnoses Diagnosis [...] 1:11 PM CDT 30 mL/hr 30 mL/hr lidocaine-EPINEPHrine 1 %-1:100,000 injection (Xylocaine w/epi) As needed, Starting on Sat07/14/24 at 1510, Intra-Op Given 07/14/2024 3:10 PM CDT 10 mL oxyCODONE IR tablet 10 mg (Roxicodone) 10 [...] iodide and iodine 5 % solution (Lugols) As needed, Starting on Sat07/14/24 at 1512, Intra-Op Given 07/14/2024 3:12 PM CDT 5 drops sodium chloride 0.9 % injection 10 mL [...] (New Bag - Prov ider: Laila Green RJeronimo)1432 (Rate/Dose Verify - Provider: Zayra Fischer APRN, ROLL THREADER OPERATOR)1512 (New Bag - Provider: Joanna Tay APRN, [place], DNAP) Lactated Ringer's 100 mL/hr, intravenous, Continuous, [...] Depression Total Score: 18 025 10:50 AM HOME VISITOR documented as of this encounter Care Teams Signal Person Relationship Specialty Start Date End Date Bela Jauregui APRN, C.N.P. [address] [place] [phone] PCP - General Family Medicine 08/11/20 documented as of this encounter
[2024-08-27 18:21] VITALS: BP 119/78; PULSE 69; RESP 16; TEMP 36.8; O2SAT 99; BMI 22.1
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
--- OUTSIDE RECORDS SUMMARY | 2024-08-27 19:14 | XMS_ITS | Clinical Summary ---
Author Organization [facility] Address [address] [place] [address] Care Team Providers Care Orthotist/Prosthetist Name Role Phone Bela Jauregui APRN, C.NLaPLa Primary Care Pro vider Source Comments Patient records contain information from all sites at [facility]. For routine questions regarding patient records, call [phone] during business hours, M-F 8:00 AM - 5:00 PM Central Time. Record requests for emergency care only can be directed to [phone] at any time.[facility] Allergies Active Allergy Reactions Criticality Noted [...] Infusion Department of Allergy and Immunology in [address] [phone] Ilya Barajas M.D. Urticaria Idiopathic (Primary Dx) Discharge Disposition: Home or Self Care 07/27/2024 12:26 PM CDT - 07/27/2024 2:03 PM CDT Emergency [facility] [address] [place] [phone] Xochitl Eckert APRN, C.N.P., M.S.N. Unspecified Open Wound Right Middle Finger Without Damage To Nail Initial (Primary Dx) Discharge Disposition: Home or Self Care 07/23/2024 3:45 PM CDT Virtual Visit Department of Obstetrics and Gynecology in [address] [phone] Xochitl Berg M.D. Lesion Severe Squamous Intraepithelial Cervix (Severe Dysplasia) (Primary Dx) Discharge Disposition: Home or Self Care 07/14/2024 2:40 PM CDT - 07/14/2024 4:04 PM CDT Surgery Outpatient Procedure Center in [address] [phone] Xochitl Berg M.D. LEEP PROCEDURE - LOOP ELECTRO EXCISION PROCEDURE 07/14/2024 2:32 PM CDT Anesthesia Event Outpatient Procedure Center in [address] [phone] Sosa Crandall M.D. Shantz, Kelly R, APRN, DIRECTOR OF EDUCATION 07/14/2024 12:00 PM CDT - 07/14/2024 4:45 PM CDT Hospital Encounter Outpatient Procedure Center in [address] [phone] Xochitl Berg M.D. Cervical Dysplasia Personal History Discharge Disposition: Home or Self Care 07/09/2024 10:30 AM CDT Infusion Department of Allergy and Immunology in [address] [phone] Ilya Barajas M.D. Urticaria Idiopathic (Primary Dx) Discharge Disposition: Home or Self Care 07/07/2024 11:00 AM CDT Office Visit Department of Allergy and Immunology in [address] [phone] Ilya Barajas M.D. Urticaria Idiopathic (Primary Dx); Swelling Face; Pompholyx; Rhinitis Allergic Discharge Disposition: Home or Self Care 07/02/2024 Orders Only Department of Family Medicine in [place], [place] [address] [place] [address] Bela Jauregui APRN, C.N.P. 06/30/2024 Orders Only Department of Family Medicine in [place], [place] [address] [place] [phone] Bela Jauregui APRN, C.N.P. 06/30/2024 Clinical Communication Department of Neurology in [address] [phone] Yessenia Bonilla R.N. Triage 06/26/2024 Orders Only Department of Family Medicine in [place], [place] [address] [place] [phone] Pat Souza APRN, C.N.P. Headache Chronic (Primary Dx) 06/11/2024 10:15 AM BIOLOGICAL SCIENCE TECHNICIAN FISH Infusion Department of Allergy and Immunology in [place] [address] [place] [phone] Ilya Barajas M.D. Urticaria Idiopathic [...] Serena Thyroid disease Father 2 Serena [facility] medictions Arthritis Mother 1 Serena Depression Mother 1 Sernea Diabetes Mother 1 Serena Sleep apnea Mother [...] 0.6 oz pur e alcohol) Occassionally [facility] Utilities Answer Date Recorded In the past 12 months has e [employer], gas, oil, or water company threatened to [...] week 03/05/2022 How often do you attend [facility] or confucianism services? More than 4 times per year [...] Answer Date Recorded PHQ-2 Score 2 04/28/2024 [facility] - [...] AM CDT Legal Sex Female 9:05 PM BIOLOGICAL SCIENCE TECHNICIAN FISH Gender Identity Female 03/14/2020 12:38 PM BIOLOGICAL SCIENCE TECHNICIAN FISH Sexual Orientation Not on file Last Filed [...] Infusion Department of Allergy and Immunology in [address] [phone] Ilya Barajas M.D. [address] [place] [phone] Discharge Disposition: Home or Self Care 09/08/2024 2:30 PM CDT Comprehensive Visit Department of Neurology in [address] [phone] Ang Sommer M.B.BLaS. [address] [place] [phone] Discharge Disposition: Home or Self Care 10/01/2024 9:00 AM CDT Infusion Department of Allergy and Immunology in [address] [phone] Ilya Barajas M.D. [address] [place] [phone] Discharge Disposition: Home or Self Care 10/29/2024 9:00 AM CDT Infusion Department of Allergy and Immunology in [place], [place] [address] [place] [phone] Ilya Barajas M.D. [address] [place] [phone] Discharge Disposition: Home or Self Care 01/22/2025 2:30 PM CDT Office Visit Department of Obstetrics and Gynecology in [address] [phone] Xochitl Berg M.D. [address] [place] [phone] Health Maintenance Due Date Last Done Comments [...] Cervical Dysplasia Personal History Case Notes DW(#3)/(9) AR COLPOSCOPY CERVIX W BX & ECC Routine 05/21/2024 10:00 AM BIOLOGICAL SCIENCE TECHNICIAN FISH High Risk Human Papillomavirus Deoxyribonucleic Acid Test Positive Cervix HPV WITH GENOTYPING, PCR, THINPREP Routine 05/06/2024 1:46 PM BIOLOGICAL SCIENCE TECHNICIAN FISH COMPREHENSIVE METABOLIC PANEL, S/P Routine 04/28/2024 12:01 PM BIOLOGICAL SCIENCE TECHNICIAN FISH Headache Chronic Mood Disorder (HCC) Urticaria Idiopathic Well Adult Examination Normal COLONOSCOPY Routine 03/18/2024 8:42 AM BIOLOGICAL SCIENCE TECHNICIAN FISH Positive Cologuard Stool Deoxyribonucleic Acid Test BI BREAST SCREENING BILATERAL WITH TOMOSYNTHESIS RAD - Routine (most inpatients and all outpatients) 03/09/2024 3:30 PM BIOLOGICAL SCIENCE TECHNICIAN FISH Screening Mammogram Breast Cancer COLOGUARD Routine 02/24/2024 8:00 AM BIOLOGICAL SCIENCE TECHNICIAN FISH Screening Cancer Colon HIV-1/-2 AG AND AB [...] PATH ORDERABLES Edite d Result - Final [facility] [place] [address], [facility] [address] [address] * LDA ANE NON-SURGICAL AIRWAY (07/14/2024 2:42 [...] APRN, CRNA ANESTHESIA ORDERABLES Final Result * AR COLPOSCOPY CERVIX W BX & ECC (05/21/2024 10:00 AM BIOLOGICAL SCIENCE TECHNICIAN FISH) Narrative MMODAL - 05/21/2024 10:00 AM BIOLOGICAL SCIENCE TECHNICIAN FISH Orquidea Dawn APRN, C.N.PLa, M.S.N. 05/21/2024 12:10 [...] techniques. us Orquidea Dawn APRN C.N.P., M.S.N. PROCEDURE/AR NOR SURGICAL ORDERABLES Final Result MMODAL NA * (ABNORMAL) HPV with Genotyping, PCR, ThinPrep (05/06/2024 1:46 PM BIOLOGICAL SCIENCE TECHNICIAN FISH) HPV with Genotyping, ThinPrep, PCR Positive(A) Negative 05/08/2024 12:49 PM BIOLOGICAL SCIENCE TECHNICIAN FISH MKTO Comment: Positive for high risk HPV by nucleic acid amplification. Positive for one or more of the following high risk types: 16, 18, 31, 33, 35, 39, 45, 51, 52, 56, 58, 59, 66, and 68. See genotyping result. HPV High Risk type 16, PCR Positive(A) Negative 05/08/2024 12:49 PM BIOLOGICAL SCIENCE TECHNICIAN FISH MKTO HPV High Risk type 18/45, PCR Negative Negative 05/08/2024 12:49 PM BIOLOGICAL SCIENCE TECHNICIAN FISH MKTO 05/06/2024 1:46 PM BIOLOGICAL SCIENCE TECHNICIAN FISH 05/07/2024 6:56 AM BIOLOGICAL SCIENCE TECHNICIAN FISH us Brandon Mejias APRNNLaP., M.S.N. LAB MICROBIOLOGY - GENERAL ORDERABLES Final Result [facility] [address] [place] [address], [facility] [address] [facility] [address] [place] [address] * Comprehensive Metabolic Panel (04/28/2024 12:01 PM BIOLOGICAL SCIENCE TECHNICIAN FISH) [facility] Potassium, P 4.3 3.6 - 5.2 mmol/L 04/28/2024 4:05 PM BIOLOGICAL SCIENCE TECHNICIAN FISH NPRG Sodium, P 139 135 - 145 mmol/L 04/28/2024 4:05 PM BIOLOGICAL SCIENCE TECHNICIAN FISH NPRG Chloride, P 104 98 - 107 mmol/L 04/28/2024 4:05 PM BIOLOGICAL SCIENCE TECHNICIAN FISH NPRG Bicarbonate, P 27 22 - 29 mmol/L 04/28/2024 4:06 PM BIOLOGICAL SCIENCE TECHNICIAN FISH NPRG Anion Gap, P 8 7 - 15 04/28/2024 4:05 PM BIOLOGICAL SCIENCE TECHNICIAN FISH NPRG BUN (Blood Urea Nitrogen), P 13 6 - 21 mg/dL 04/28/2024 4:06 PM BIOLOGICAL SCIENCE TECHNICIAN FISH NPRG Creatinine 0.68 0.59 - 1.04 mg/dL 04/28/2024 4:06 PM BIOLOGICAL SCIENCE TECHNICIAN FISH NPRG Estimated GFR (eGFR) >90 >=60 mL/min/BS A 04/28/2024 4:06 PM BIOLOGICAL SCIENCE TECHNICIAN FISH NPRG Comment: Estimated GFR calculated using the 2020 CKD_EPI creatinine equation. Calcium, Total, P 9.3 8.6 - 10.0 mg/dL 04/28/2024 4:06 PM BIOLOGICAL SCIENCE TECHNICIAN FISH NPRG Glucose, P 95 70 - 140 mg/dL 04/28/2024 4:06 PM BIOLOGICAL SCIENCE TECHNICIAN FISH NPRG Protein, Total, P 6.9 6.3 - 7.9 g/dL 04/28/2024 4:06 PM BIOLOGICAL SCIENCE TECHNICIAN FISH NPRG Albumin, P 4.3 3.5 - 5.0 g/dL 04/28/2024 4:06 PM BIOLOGICAL SCIENCE TECHNICIAN FISH NPRG Aspartate Aminotransferase (AST), P 15 8 - 43 U/L 04/28/2024 4:06 PM BIOLOGICAL SCIENCE TECHNICIAN FISH NPRG Alkaline Phosphatase, P 77 35 - 104 U/L 04/28/2024 4:06 PM BIOLOGICAL SCIENCE TECHNICIAN FISH NPRG Alanine Aminotransferase (ALT), P 16 7 - 45 U/L 04/28/2024 4:06 PM BIOLOGICAL SCIENCE TECHNICIAN FISH NPRG Bilirubin, Total, P 0.2 0.0 - 1.2 mg/dL 04/28/2024 4:06 PM BIOLOGICAL SCIENCE TECHNICIAN FISH NPRG Blood (Blood, Venous) 04/28/2024 12:01 PM BIOLOGICAL SCIENCE TECHNICIAN FISH 04/28/2024 3:32 PM BIOLOGICAL SCIENCE TECHNICIAN FISH us Bela Jauregui APRN, C.N.P. LAB BLOOD ADD-ON Final Result [facility] [address] [place] [address], [place] NPRG [facility] [address] [place] [address] * BI Breast Screening Bilateral with Tomosynthesis (03/09/2024 3:30 PM BIOLOGICAL SCIENCE TECHNICIAN FISH) Anatomical Region Laterality Modality Breast, Breast Imaging RST L OS, Breast Imaging ARZ LOS, Breast Imaging FLA LOS Bilateral Mammography Impressions 03/09/2024 4:24 PM BIOLOGICAL SCIENCE TECHNICIAN FISH Benign. RECOMMENDATION: Annual Screening Mammogram ASSESSMENT: BI-RADS: 2: Benign. Narrative 03/09/2024 4:24 PM BIOLOGICAL SCIENCE TECHNICIAN FISH EXAM: BI BREAST SCREENING BILATERAL WITH TOMOSYNTHESIS [...] - Sent Out Lab (02/24/2024 8:00 AM BIOLOGICAL SCIENCE TECHNICIAN FISH) Result Positive( A) Negative 03/03/2024 8:33 PM BIOLOGICAL SCIENCE TECHNICIAN FISH EXLI Comment: POSITIVE TEST RESULT. A positive [...] (Miguelangel Eldridge al, N Engl J Med 2014;370(14):7159-7167.) Cologuard may produce a false negative or false positive result (no colorectal cancer or precancerous polyp present at colonoscopy follow up). A negative Cologuard test result does not guarantee the absence of CRC or advanced adenoma (pre-cancer). The current Cologuard screening interval is every 3 years. (French Cancer Society and U.S. Multi-Society Task Force). Cologuard performance data in a 10,000 patient pivotal study using colonoscopy as the reference method can be accessed at the following location: www.[employer]/results. Additional description of the Cologuard test process, warnings and precautions can be found at www.[employer].com. Stool (Stool) 02/24/2024 8:0 0 AM BIOLOGICAL SCIENCE TECHNICIAN FISH 02/26/2024 10:01 AM BIOLOGICAL SCIENCE TECHNICIAN FISH us Bela Jauregui APRN, C.N.P. LAB BODY FLUIDS A ND STOOLS ORDERABLES Final Result [facility] [address] [place] [address] EX[facility] [employer] [address] [place] [address], [address] [place] [address] * HIV-1/-2 Ag and Ab Screen, Plasma [...] MICROBIO LOGY - BLOOD ORDERABLES Final Result [facility] [address] [place] [address], [facility] in [place] [address] * (ABNORMAL) Lipid Panel (09/29/2020 12:04 PM CDT) Pathologist [facility] Cholesterol, Total 205(H) mg/dL 2020 4:14 PM [...] APRN, C.N.P. LAB BLOOD ADD-ON Final Result [facility] [address] [place] [address], [place] NPRG [facility] [address] [place] [address] from Last 3 Months or Most Recently Relevant to Health Maintenance Insurance [facility] [place] [address] Advance Directives For more information, please contact: [phone] * Full Code (Latest Code Status on [...] Due to: Patient not available Care Teams Orthotist/Prosthetist Relationship Specialty Start Date End Date Bela Jauregui APRN, C.N.P. [address] [place] [phone] PCP - General Family Medicine 08/11/20
--- OUTSIDE RECORDS SUMMARY | 2024-08-27 19:14 | XMS_ITS | Encounter Summary ---
Author Organization [facility] Address [address] [place] [address] Care Team Providers Care Monument Letterer Name Role Phone Bela Jauregui APRN C.N.PLa Primary Care Pro vider Reason for Visit * Reason Comments Nurse Visit Patient here for aaron eduled Xolair injection per order of Dr. Barajas * Episode Based Medications - Authorized Specialty Diagnoses / Procedures Referred By Contac t Referred To Contact Diagnoses Urticaria Idiopathic Procedures TN OMALIZUMAB INJECTION Ilya Barajas M.D. [address] [place] [address] Phone: tel: fax: Department of Allergy and Immunology in [address] [phone] Phone: tel: Referral ID Status Reason Start Date Expiration Date V isits Requested Visits Authorized [id number] Authorized 03/10/2024 09/05/2024 13 7 Encounter Details Date Type Department Care Team (Late st Contact Info) Description 08/06/2024 9:00 AM CDT Infusion Department of Allergy and Immunology in [address] [phone] Ilya Barajas M.D. [address] [place] [phone] Urticaria Idiopathic (Primary Dx) Discharge Disposition: Home or Self Care Social History Tobacco Use Types Packs/Day Years Used Date Smoking Tobacco: Never Cigarettes Qu it: 04/15/2004 Passive Smoke Exposure: Yes Smokeless Tobacco: Never Comments:I was a social smok er foe about 2 years Alcohol Use Standard Drinks/Week Comments Not Currently 2 (1 standard drink = 0.6 oz pur e alcohol) Occassionally [facility] Utilities Answer Date Recorded In the past 12 months has e [employer], gas, oil, or water [employer] threatened to shut off services in your [...] week 03/05/2022 How often do you attend [facility] or congregational services? More than 4 times per year 03/05/2022 Do you belong to any clubs o r organizations such as voodoo groups, unions, fraternal or athletic groups, or [...] Answer Date Recorded PHQ-2 Score 2 04/28/2024 [facility] - [facility]ational Stress Questionnaire Answer Date [...] your living situation today? I have a [facility] place to live 04/16/2024 Education Answer Date Recorded What is the highest level of school you have completed or the highest degree you have received? Associate degree: occupational, technical, or vocational program 03/05/2022 Comments No Sex and Gender Information Value Date Recorded Sex Assigned at Female 08/18/2021 11:37 AM CDT Legal Sex Female 9:05 PM SEAFOOD SPECIALIST Gender Identity Female 03/14/2020 12:38 PM SEAFOOD SPECIALIST Sexual Orientation Not on file documented [...] Infusion Department of Allergy and Immunology in [place] [address] [place] [phone] Ilya Barajas M.D. [facility] [place] [phone] Discharge Disposition: Home or Self Care 09/08/2024 2:30 PM CDT Comprehensive Visit Department of Neurology in [address] [phone] Ang Sommer M.B.B.S. [address] [place] [phone] Discharge Disposition: Home or Self Care 10/01/2024 9:00 AM CDT Infusion Department of Allergy and Immunology in [address] [phone] Ilya Barajas M.D. [address] [place] [phone] Discharge Disposition: Home or Self Care 10/29/2024 9:00 AM CDT Infusion Department of Allergy and Immunology in [address] [phone] Ilya Barajas M.D. [address] [place] [phone] Discharge Disposition: Home or Self Care 01/22/2025 2:30 PM CDT Office Visit Department of Obstetrics and Gynecology in [address] [phone] Xochitl Berg M.D. [address] [place] [address] documented as of this encounter Visit Diagnoses [...] Depression Total Score: 18 025 10:50 AM SEAFOOD SPECIALIST documented as of this encounter Care Teams Monument Letterer Relationship Specialty Start Date End Date Bela Jauregui APRN, C.N.P. [address] [place] [phone] PCP - General Family Medicine 08/11/20 documented as of this encounter
--- OUTSIDE RECORDS SUMMARY | 2024-08-27 19:14 | XMS_ITS | Encounter Summary ---
Author Organization [facility] Address [address] [place] [address] Care Team Providers Care Light Truck Driver Name Role Phone Bela Jauregui APRN, C.N.P. Primary Care Pro vider Reason for Visit * Reason Comments Laceration Patient presents wit h laceration to her right middle finger when she hit it on a sculpture at her house. Encounter Details Date Type Department Care Team (Late st Contact Info) Description 07/27/2024 12:26 PM CDT - 07/27/2024 2:03 PM CDT Emergency [facility] [address] [place] [phone] Xochitl Eckert APRN, C.N.P., M.S.N. [address] [place] [phone] Unspecified Open Wound Right Middle Finger Without [...] = 0.6 oz pur e alcohol) Occassionally [facility] Utilities Answer Date Recorded In the past 12 months has [employer], gas, oil, or water company threatened to [...] often do you attend chur ch or oriental orthodox services? More than 4 times per year 03/05/2022 Do you belong to any clubs o r organizations such as episcopal groups, unions, fraternal or athletic groups, or [...] Answer Date Recorded PHQ-2 Score 2 04/28/2024 [facility] of Occupat ional Health - Occupational [...] your living situation today? I have a [facility] place to live 04/16/2024 Education Answer Date Recorded What is the highest level of school you have completed or the highest degree you have received? Associate degree: occupational, technical, or vocational program 03/05/2022 Comments No Sex and Gender Information Value Date Recorded Sex Assigned at Female 08/18/2021 11:37 AM CDT Legal Sex Female 9:05 PM HOUSEKEEPING AIDE Gender Identity Female 03/14/2020 12:38 PM HOUSEKEEPING AIDE Sexual Orientation Not on file documented as [...] mg iron/15 mL liquid 15 mL daily. [id number] A 18-400 mg-mcg tablet Take 1 tablet [...] Infusion Department of Allergy and Immunology in [place], [place] [address] [place] [phone] Ilya Barajas M.D. [address] [place] [phone] Discharge Disposition: Home or Self Care 09/08/2024 2:30 PM CDT Comprehensive Visit Department of Neurology in [address] [phone] Ang Sommer M.B.BLaS. [address] [place] [phone] Discharge Disposition: Home or Self Care 10/01/2024 9:00 AM CDT Infusion Department of Allergy and Immunology in [place], [place] [address] [place] [address] Ilya Barajas M.D. [facility] [place] [phone] Discharge Disposition: Home or Self Care 10/29/2024 9:00 AM CDT Infusion Department of Allergy and Immunology in [place], [place] [address] [place] [address] Ilya Barajas M.D. [address] [place] [phone] Discharge Disposition: Home or Self Care 01/22/2025 2:30 PM CDT Office Visit Department of Obstetrics and Gynecology in [address] [phone] Xochitl Berg M.D. [address] [place] [phone] documented as of this encounter Visit Diagnoses Diagnosis Unspecified Open Wound Right Middle Finger Without Damage To Nail Initial- Primary Unspecified Open Wound Right Middle Finger Without Damage To Nail Initial documented in this encounter Active and Recently Administered Medications Additional Health Concerns Assessment Noted Time PHQ-9 Depression Total Score: 18 025 10:50 AM HOUSEKEEPING AIDE documented as of this encounter Care Teams Light Truck Driver Relationship Specialty Start Date End Date Bela Jauregui APRN, C.N.P. [address] [place] [address] PCP - General Family Medicine 08/11/20 documented as of this encounter
--- OUTSIDE RECORDS SUMMARY | 2024-08-27 19:14 | XMS_ITS | Encounter Summary ---
Author Organization [facility] Address [address] [place] [address] Care Team Providers Care Pattern Vault Clerk Name Role Phone Bela Jauregui APRN, C.N.P. Primary Care Pro vider Encounter Details Date Type Department Care Team (Late st Contact Info) Description 07/02/2024 Orders Only Department of Family Medicine in [place], [place] [address] [place] [phone] Bela Jauregui APRN, C.N.P. [address] [place] [phone] Social History Tobacco Use Types Packs/Day Years Used Date Smoking Tobacco: Never Cigarettes Qu it: 04/15/2004 Passive Smoke Exposure: Yes Smokeless Tobacco: Never Comments:I was a social smok er foe about 2 years Alcohol Use Standard Drinks/Week Comments Not Currently 2 (1 standard drink = 0.6 oz pur e alcohol) Occassionally [facility] Utilities Answer Date Recorded In [...] How often do you attend chur or bahai services? More than 4 times per year 03/05/2022 Do you belong to any clubs o r organizations such as samaritan groups, unions, fraternal or athletic groups, or [...] Answer Date Recorded PHQ-2 Score 2 04/28/2024 [facility] of Occupat ional Health - Occupational [...] your living situation today? I have a [facility] place to live 04/16/2024 Education Answer Date Recorded What is the highest level of school you have completed or the highest degree you have received? Associate degree: occupational, technical, or vocational program 03/05/2022 Comments No Sex and Gender Information Value Date Recorded Sex Assigned at Female 08/18/2021 11:37 AM CDT Legal Sex Female 9:05 PM TYPING POOL SUPERVISOR Gender Identity Female 03/14/2020 12:38 PM TYPING POOL SUPERVISOR Sexual Orientation Not on file documented as of this encounter Plan of Treatment Upcoming Encounters Date Type Department Care Team (Latest Contact Info) Description 09/03/2024 9:00 AM CDT Infusion Department of Allergy and Immunology in [place], [place] [address] [place] [phone] Ilya Barajas M.D. [facility] [place] [phone] Discharge Disposition: Home or Self Care 09/08/2024 2:30 PM CDT Comprehensive Visit Department of Neurology in [address] [phone] Ang Sommer M.B.BLaS. [address] [place] [phone] Discharge Disposition: Home or Self Care 10/01/2024 9:00 AM CDT Infusion Department of Allergy and Immunology in [place], [place] [address] [place] [phone] Ilya Barajas M.D. [address] [place] [phone] Discharge Disposition: Home or Self Care 10/29/2024 9:00 AM CDT Infusion Department of Allergy and Immunology in [place] [address] [place] [phone] Ilya Barajas M.D. [address] [place] [phone] Discharge Disposition: Home or Self Care 01/22/2025 2:30 PM CDT Office Visit Department of Obstetrics and Gynecology in [address] [phone] Xochitl Berg M.D. [address] [place] [phone] documented as of this encounter Visit Diagnoses Not on filedocumented in this encounter Additional Health Concerns Assessment Noted Time PHQ-9 Depression Total Score: 18 025 10:50 AM TYPING POOL SUPERVISOR documented as of this encounter Care Teams Pattern Vault Clerk Relationship Specialty Start Date End Date Bela Jauregui APRN, C.N.P. [address] [place] [phone] PCP - General Family Medicine 08/11/20 documented as of this encounter
--- OUTSIDE RECORDS SUMMARY | 2024-08-27 19:14 | XMS_ITS | Clinical Summary ---
Author Organization [employer] Address [address] [place] [address] Care Team Providers Care Multifocal Lens Inspector Name Role Phone Randa Curiel MD Primary [...] Description 08/24/2024 1:25 PM CDT Office Visit [facility] [address] [place] [address] Randa Curiel MD Establish Care (Not happy with [place]. ); Referral 08/24/2024 Travel from Last 3 [...] Description 08/28/2024 1:30 PM CDT Ancillary Procedure [facility] [address] [place] [address] 09/25/2024 1:25 PM CDT Office Visit [facility] [address] [place] [address] Randa Curiel MD [address] [place] [address] Health Maintenance Due Date Last Done Comments [...] SEDIMENTATION RATE (08/24/2024 2:50 PM CDT) Pathologist [facility] SED RATE BY MODIFIED LUPEERGREN 2 < OR = 20 mm/h [facility] Blood BLOOD SPECIMEN / Unknown 08/24/2024 2:50 PM CDT 08/24/2024 2:51 PM CDT Randa Curiel MD HEMATOLOGY Fi nal Result Performing Organization Address [facility]/ZIP Co de Phone Number [facility] [address] [address], [place] [phone] [facility] [address] [place] [address] * C-REACTIVE PROTEIN (08/24/2024 2:50 PM CDT) Pathologist [facility] C-REACTIVE PROTEIN <3.0 <8.0 mg/L [facility] Blood BLOOD SPECIMEN / Unknown 08/24/2024 2:50 PM CDT 08/24/2024 2:51 PM CDT Randa Curiel MD CHEMISTRY Fi nal Result Performing Organization Address [facility]/ZIP Co de Phone Number [employer] [address] [address], [place] [phone] [facility] [address] [place] [address] * (ABNORMAL) CBC AND DIFFERENTIAL (08/24/2024 2:50 [...] Curiel MD HEMATOLOGY nal Result [facility] [address] [place] [address], [place] [phone] [facility] [address] [place] [address] * COMP METABOLIC PANEL (08/24/2024 2:50 PM CDT) [facility] GLUCOSE 81 65 - 99 mg/dL [facility] [...] Randa Curiel MD CHEMISTRY Fi nal Result [employer] [place] [facility] [place] [address], [employer] [facility] [address] [place] [address] * POCT Urinalysis Dipstick Only [[id number]] (08/24/2024 2:49 PM CDT) Pathologist [facility] PH 6.0 5.0 - 8.0 [facility] SPECIFIC GRAVITY 1.015 1.001 - 1.035 [facility] GLUCOSE NEGATIVE NEGATIVE [facility] BILIRUBIN NEGATIVE NEGATIVE [facility] KETONES NEGATIVE NEGATIVE [facility] OCCULT BLOOD NEGATIVE NEGATIVE [facility] PROTEIN NEGATIVE NEGATIVE [facility] NITRITE NEGATIVE NEGATIVE [facility] LEUKOCYTE ESTERASE NEGATIVE NEGATIVE [facility] Urine URINE SPECIMEN / Unknown 08/24/2024 2:49 PM CDT 08/24/2024 2:49 PM CDT Randa Curiel MD URINE Fi nal Result [facility] [address] [place] [address], [facility] [address] [place] [address] * URINALYSIS MICROSCOPIC [62378.1] - routine (08/24/2024 2:48 PM CDT) Pathologist [facility] RBC 0-2 0-2, None Seen /HPF 08/24/2024 11:37 PM CDT [facility] WBC 0-2 0-2, 3-5, None Seen /HPF 08/24/2024 11:37 PM CDT [facility] BACTERIA None Seen None Seen, Rare, Few Bacteria/ HPF 08/24/2024 11:37 PM CDT [facility] EPITHELIAL CELLS None Seen None Seen, Few Epi/HPF 08/24/2024 11:37 PM CDT [facility] HYALINE CASTS 0-2 0-2, 3-5 /LPF 08/24/2024 11:37 PM CDT [facility] Urine URINE SPECIMEN / Unknown Non-Blood / Unknown 08/24/2024 2:48 PM CDT 08/24/2024 2:48 PM CDT us Randa Curiel MD URINE Fi nal Result Performing Organization Address City/[facility]/ZIP Co de Phone Number [facility] [address] [place] [address], * URINE CULTURE [15120.2] (08/24/2024 2:48 PM CDT) CULTURE No growth (<1,000 CFU/mL) 08/26/2024 9:50 AM CDT [facility] Urine URINE SPECIMEN / Unknown Non-Blood / Unknown 08/24/2024 2:48 PM CDT 08/24/2024 2:48 PM CDT us Randa Curiel MD MICROBIOLOGY Fi nal Result Performing Organization Address City/[facility] Co de Phone Number [facility] [address] [place] [address], from Last 3 Months Insurance Care Teams Multifocal Lens Inspector Relationship Specialty Start Date End Date Randa Curiel MD [address] [place] [address] PCP - General Family Practice 08/24/24
--- OUTSIDE RECORDS SUMMARY | 2024-08-27 19:14 | XMS_ITS | Encounter Summary ---
Author Organization [facility] Address [address] [place] [address] Care Team Providers Care Flame Burner Name Role Phone Bela Jauregui APRN, C.NJacquelin Primary Care Pro vider Reason for Referral * Outpatient (Routine) - Authorized Specialty Diagnoses / Procedures Referred By Linnea freeman Referred To Contact Obstetrics and Gynecology Xochitl Berg M.D. [address] [place] [phone] Phone: tel: fax: [facility] Referral ID Status Reason Start Date Expiration Date V isits Requested Visits Authorized [id number] Authorized 07/23/2024 01/22/2026 1 1 Reason for Visit * Outpatient (Routine) - Closed Specialty Diagnoses / Procedures Referred By Linnea freeman Referred To Contact Obstetrics and Gynecology Xochitl Berg M.D. [address] [place] [phone] Phone: tel: fax: [facility] Referral ID Status Reason Start Date Expiration Date Visits Re quested Visits Authorized [id number] Closed 07/14/2024 01/13/2026 1 1 Encounter Details Date Type Department Care Team (Latest Contact Info) Description 07/23/2024 3:45 PM CDT Virtual Visit Department of Obstetrics and Gynecology in [place], [place] [address] [place] [address] Xochitl Berg M.D. [address] [place] [address] Lesion Severe Squamous Intraepithelial Cervix [...] oz pur e alcohol) Occassionally [facility] Utilities Answer Date Recorded In the past 12 months has e [employer], gas, oil, or water [employer] threatened to shut off services in your [...] often do you attend chur ch or buddhism services? More than 4 times per year 03/05/2022 Do you belong to any clubs o r organizations such as pentecostal groups, unions, fraternal or athletic groups, or [...] Answer Date Recorded PHQ-2 Score 2 04/28/2024 [facility] - Occupational Stress Questionnaire Answer [...] AM CDT Legal Sex Female 9:05 PM RIPSAW GRADER Gender Identity Female 03/14/2020 12:38 PM RIPSAW GRADER Sexual Orientation Not on file documented as [...] Infusion Department of Allergy and Immunology in [place], [place] [address] [place] [phone] Ilya Barajas M.D. [facility] [place] [phone] Discharge Disposition: Home or Self Care 09/08/2024 2:30 PM CDT Comprehensive Visit Department of Neurology in [address] [phone] Ang Sommer M.B.BLaS. [address] [place] [phone] Discharge Disposition: Home or Self Care 10/01/2024 9:00 AM CDT Infusion Department of Allergy and Immunology in [place] [address] [place] [phone] Ilya Barajas M.D. [address] [place] [phone] Discharge Disposition: Home or Self Care 10/29/2024 9:00 AM CDT Infusion Department of Allergy and Immunology in [place] [address] [place] [address] Ilya Barajas M.D. [address] [place] [phone] Discharge Disposition: Home or Self Care 01/22/2025 2:30 PM CDT Office Visit Department of Obstetrics and Gynecology in [address] [phone] Xochitl Berg M.D. [address] [place] [phone] Scheduled Referrals Name Type Priority Associated Diagnoses Order Schedule Obstetrics and Gynecology office visit (clinic) Outpatient Referral Routine Expected: 01/22/2025, Expires: 10/22/2025 documented as of this encounter Visit Diagnoses Diagnosis Lesion Severe Squamous Intraepithelial Cervix (Severe Dysplasia)- Primary documented in this encounter Additional Health Concerns Assessment Noted Time PHQ-9 Depression Total Score: 18 025 10:50 AM RIPSAW GRADER documented as of this encounter Care Teams Flame Burner Relationship Specialty Start Date End Date Bela Jauregui APRN, C.N.P. [address] [place] [phone] PCP - General Family Medicine 08/11/20 documented as of this encounter
--- OUTSIDE RECORDS SUMMARY | 2024-08-27 19:14 | XMS_ITS | Encounter Summary ---
Author Organization [facility] Address [address] [place] [address] Care Team Providers Care Physics Teacher Name Role Phone Bela Jauregui APRN, C.N.P. Primary Care Pro vider Reason for Visit * Auth/Cert (Routine) Specialty Diagnoses / Procedures Referred By Contac t Referred To Contact Diagnoses Cervical Dysplasia Personal History Cervical Dysplasia Personal History [Z87.410] Procedures CT CONIZATION CX EXCISN LOOP ELEC LEEP PROCEDURE - LOOP ELECTRO EXCISION PROCEDURE Xochitl Berg M.D. [address] [place] [phone] Phone: tel: fax: Referral ID Status Reason Start Date Expiration Date Visits Re quested Visits Authorized [id number] 1 1 Encounter Details Date Type Department Care Team (Late st Contact Info) Description 07/14/2024 2:32 PM CDT Anesthesia Event Outpatient Procedure Center in [place], [place] [address] [place] [phone] Sosa Crandall M.D. [address] [place] [phone] Zayra Fischer APRN, [address] [place] [phone] Anesthesia Record Procedure Summary Procedure Name Responsible [...] 1511 Anes CS Handoff I, Zayra leroy, PROFESSIONAL SECURITY OFFICER, FRUIT STUFFER, attest that I have reconciled the controlled [...] oz pur e alcohol) Occassionally [facility] Utilities Answer Date Recorded In the past 12 months has e [employer], gas, oil, or water [employer] threatened to shut off services in your [...] often do you attend chur ch or sabianism services? More than 4 times per year 03/05/2022 Do you belong to any clubs o r organizations such as christianity groups, unions, fraternal or athletic groups, or [...] Answer Date Recorded PHQ-2 Score 2 04/28/2024 [facility] - Occupational Stress Questionnaire Answer [...] AM CDT Legal Sex Female 9:05 PM HYDROSTATIC TESTER Gender Identity Female 03/14/2020 12:38 PM HYDROSTATIC TESTER Sexual Orientation Not on file documented as of this encounter OR Notes * Anesthesia Postprocedure Evaluation - Sosa Crandall M.D. - 07/14/2024 3:27 PM CDT Patient: Daily Chen Procedure Summary Date: 07/14/24 Room / Location: [address] Anesthesia Start: 1432 Anesthesia Stop: 1527 [...] diagnosis: Cervical Dysplasia Personal History [Z87.410] Location: [address] Providers: Xochitl Berg M.D. Pertinent components [...] with patient /legal guardian or through an seismic interpreter. The use of blood products not discussed Approval to Proceed: approved for anesthesia documented in this encounter Plan of Treatment Upcoming Encounters Date Type Department Care Team (Latest Contact Info) Description 09/03/2024 9:00 AM CDT Infusion Department of Allergy and Immunology in [address] [phone] Ilya Barajas M.D. [address] [place] [phone] Discharge Disposition: Home or Self Care 09/08/2024 2:30 PM CDT Comprehensive Visit Department of Neurology in [address] [phone] Ang Sommer M.B.B.S. [address] [place] [phone] Discharge Disposition: Home or Self Care 10/01/2024 9:00 AM CDT Infusion Department of Allergy and Immunology in [address] [phone] Ilya Barajas M.D. [address] [place] [phone] Discharge Disposition: Home or Self Care 10/29/2024 9:00 AM CDT Infusion Department of Allergy and Immunology in [address] [phone] Ilya Barajas M.D. [address] [place] [phone] Discharge Disposition: Home or Self Care 01/22/2025 2:30 PM CDT Office Visit Department of Obstetrics and Gynecology in [place], [place] [address] [place] [address] Xochitl Berg M.D. [address] [place] [phone] documented as of this encounter Procedures [...] Depression Total Score: 18 025 10:50 AM HYDROSTATIC TESTER documented as of this encounter Care Teams Physics Teacher Relationship Specialty Start Date End Date Bela Jauregui APRN, C.[place] [place] [phone] PCP - General Family Medicine 08/11/20 documented as of this encounter
--- OUTSIDE RECORDS SUMMARY | 2024-08-27 19:14 | XMS_ITS | Encounter Summary ---
Author Organization [facility] Address [address] [place] [address] Care Team Providers Care Instrument Man Name Role Phone Bela Jauregui APRN C.N.P. Primary Care Pro vider Reason for Visit * Auth/Cert (Routine) Specialty Diagnoses / Procedures Referred By Linnea t Referred To Contact Diagnoses Cervical Dysplasia Personal History Cervical Dysplasia Personal History [Z87.410] Procedures MS CONIZATION CX EXCISN LOOP ELEC LEEP PROCEDURE - LOOP ELECTRO EXCISION PROCEDURE Xochitl Berg M.D. [address] [place] [phone] Phone: tel: fax: Referral ID Status Reason Start Date Expiration Date Visits Re quested Visits Authorized [id number] 1 1 Encounter Details Date Type Department Care Team (Late st Contact Info) Description 07/14/2024 2:40 PM CDT - 07/14/2024 4:04 PM CDT Surgery Outpatient Procedure Center in [address] [phone] Xochitl Berg M.D. [address] [place] [phone] LEEP PROCEDURE - LOOP ELECTRO EXCISION PROCEDURE Social History Tobacco Use Types Packs/Day Years Used Date Smoking Tobacco: Never Cigarettes Qu it: 04/15/2004 Passive Smoke Exposure: Yes Smokeless Tobacco: Never Comments:I was a social smok er foe about 2 years Alcohol Use Standard Drinks/Week Comments Not Currently 2 (1 standard drink = 0.6 oz pur e alcohol) Occassionally [facility] Utilities Answer Date Recorded In the [...] any clubs o r organizations such as protestant groups, unions, fraternal or athletic groups, or [...] Answer Date Recorded PHQ-2 Score 2 04/28/2024 [facility] Occupat ional [facility] - Occupational Stress Questionnaire Answer Date [...] your living situation today? [facility] 04/16/2024 Education Answer Date Recorded What is the highest level of school you have completed or the highest degree you have received? Associate degree: occupational, technical, or vocational program 03/05/2022 Comments No Sex and Gender Information Value Date Recorded Sex Assigned at Female 08/18/2021 11:37 AM CDT Legal Sex Female 9:05 PM JUNIOR LINUX ADMINISTRATOR Gender Identity Female 03/14/2020 12:38 PM JUNIOR LINUX ADMINISTRATOR Sexual Orientation Not on file documented as [...] mg iron/15 mL liquid 15 mL daily. [id number] A 18-400 mg-mcg tablet Take 1 tablet [...] Infusion Department of Allergy and Immunology in [place], [place] [address] [place] [phone] Ilya Barajas M.D. [address] [place] [phone] Discharge Disposition: Home or Self Care 09/08/2024 2:30 PM CDT Comprehensive Visit Department of Neurology in [address] [phone] Ang Sommer M.B.BLaS. [address] [place] [phone] Discharge Disposition: Home or Self Care 10/01/2024 9:00 AM CDT Infusion Department of Allergy and Immunology in [place] [address] [place] [phone] Ilya Barajas M.D. [address] [place] [phone] Discharge Disposition: Home or Self Care 10/29/2024 9:00 AM CDT Infusion Department of Allergy and Immunology in [place] [address] [place] [phone] Ilya Barajas M.D. [address] [place] [phone] Discharge Disposition: Home or Self Care 01/22/2025 2:30 PM CDT Office Visit Department of Obstetrics and Gynecology in [address] [phone] Xochitl Berg M.D. [address] [place] [phone] Scheduled Referrals Name Type Priority Associated Diagnoses [...] PATH ORDERABLES Edite d Result - Final [facility] [place] [address], [facility] [address] [address] documented in this encounter Visit Diagnoses Diagnosis [...] (Rate/Dose Verify - Provider: Zayra Fischer APRN, FILTERS ASSEMBLER)1512 (New Bag - Provider: Joanna Tay APRN, [...] Depression Total Score: 18 025 10:50 AM JUNIOR LINUX ADMINISTRATOR documented as of this encounter Care Teams Instrument Man Relationship Specialty Start Date End Date Bela Jauregui APRN, C.N.P. [address] [place] [phone] PCP - General Family Medicine 08/11/20 documented as of this encounter
--- OUTSIDE RECORDS SUMMARY | 2024-08-27 19:14 | XMS_ITS | Encounter Summary ---
Author Organization [facility] Address [address] [place] [address] Care Team Providers Care Field Cane Scaler Helper Name Role Phone Bela Jauregui APRN, C.NJacquelin Primary Care Pro vider Reason for Referral * Outpatient (Routine) - Closed Specialty Diagnoses / Procedures Referred By Linena freeman Referred To Contact Obstetrics and Gynecology Xochitl Berg M.D. [address] [place] [phone] Phone: tel: fax: [facility] Referral ID Status Reason Start Date Expiration Date Visits Re quested Visits Authorized [id number] Closed 07/14/2024 01/13/2026 1 1 Reason for Visit * Auth/Cert (Routine) Specialty Diagnoses / Procedures Referred By Linnea freeman Referred To Contact Diagnoses Cervical Dysplasia Personal History Cervical Dysplasia Personal History [Z87.410] Procedures [place] CONIZATION CX EXCISN LOOP ELEC LEEP PROCEDURE - LOOP ELECTRO EXCISION PROCEDURE Xochitl Berg M.D. [address] [place] [phone] Phone: tel: fax: Referral ID Status Reason Start Date Expiration Date Visits Re quested Visits Authorized [id number] 1 1 Encounter Details Date Type Department Care Team (Latest Contact Info) Description 07/14/2024 12:00 PM CDT - 07/14/2024 4:45 PM CDT Hospital Encounter Outpatient Procedure Center in [place], [place] [address] [place] [phone] Xochitl Berg M.D. [address] [place] [phone] Cervical Dysplasia Personal History Discharge Disposition: Home or Self Care Social History Tobacco Use Types Packs/Day Years Used Date Smoking Tobacco: Never Cigarettes Qu it: 04/15/2004 Passive Smoke Exposure: Yes Smokeless Tobacco: Never Comments:I was a social smok er foe about 2 years Alcohol Use Standard Drinks/Week Comments Not Currently 2 (1 standard drink = 0.6 oz pur e alcohol) Occassionally [facility] Utilities Answer Date Recorded In the past 12 months has e electric, gas, oil, or water [employer] threatened to shut off services in your [...] How often do you attend chur or anabaptist services? More than 4 times per year 03/05/2022 Do you belong to any clubs o r organizations such as jain groups, unions, fraternal or athletic groups, or [...] Answer Date Recorded PHQ-2 Score 2 04/28/2024 [facility]at ional [facility] - Occupational Stress [...] AM CDT Legal Sex Female 9:05 PM STEAM PLANT CONTROL ROOM OPERATOR Gender Identity Female 03/14/2020 12:38 PM STEAM PLANT CONTROL ROOM OPERATOR Sexual Orientation Not on file documented as [...] mg iron/15 mL liquid 15 mL daily. [id number] A 18-400 mg-mcg tablet Take 1 tablet [...] History[3] SOCIAL HISTORY Tobacco Use History[4] Daily hCen reports being sexually active and has had [...] Infusion Department of Allergy and Immunology in [place] [address] [place] [phone] Ilya Barajas M.D. [facility] [place] [phone] Discharge Disposition: Home or Self Care 09/08/2024 2:30 PM CDT Comprehensive Visit Department of Neurology in [address] [phone] Ang Sommer M.B.B.S. [address] [place] [phone] Discharge Disposition: Home or Self Care 10/01/2024 9:00 AM CDT Infusion Department of Allergy and Immunology in [place] [address] [place] [phone] Ilya Barajas M.D. [address] [place] [phone] Discharge Disposition: Home or Self Care 10/29/2024 9:00 AM CDT Infusion Department of Allergy and Immunology in [address] [phone] Ilya Barajas M.D. [address] [place] [phone] Discharge Disposition: Home or Self Care 01/22/2025 2:30 PM CDT Office Visit Department of Obstetrics and Gynecology in [address] [phone] Xochitl Berg M.D. [address] [place] [phone] Scheduled Referrals Name Type Priority Associated Diagnoses [...] PATH ORDERABLES Edite d Result - Final [facility] [address] [place] [address], [facility] [address] [address] documented in this encounter Visit Diagnoses Diagnosis [...] Laila Green R.N.)1432 (Rate/Dose Verify - Provider: Zayra Fischer, RAY, [employer] POLICE OFFICER)1512 (New Bag - Provider: Joanna L Brenhaug, BIOLOGIST AIDE, [employer] POLICE OFFICER, DNAP) Lactated Ringer's 100 mL/hr, intravenous, Continuous, [...] Depression Total Score: 18 025 10:50 AM STEAM PLANT CONTROL ROOM OPERATOR documented as of this encounter Care Teams Field Cane Scaler Helper Relationship Specialty Start Date End Date Bela Jauregui APRN, C.[place] [place] [phone] PCP - General Family Medicine 08/11/20 documented as of this encounter
--- OUTSIDE RECORDS SUMMARY | 2024-08-27 19:14 | XMS_ITS | Encounter Summary ---
Author Organization [facility] Address [address] [place] [address] Care Team Providers Care Apparel Embroidery Digitizer Name Role Phone Bela Jauregui APRN C.N.PLa Primary Care Pro vider Reason for Visit * Reason Comments Hives * Outpatient (Routine) - Closed Specialty Diagnoses / Procedures Referred By Linnea freeman Referred To Contact Allergy and Immunology Diagnoses Swelling Face Urticaria Idiopathic Pompholyx Rhinitis Allergic Ilya Barajas M.D. [address] [place] [phone] Phone: tel: fax: [facility] Region Referral ID Status Reason Start Date Expiration Date Visits Re quested Visits Authorized [id number] Closed 03/10/2024 09/09/2025 1 1 Encounter Details Date Type Department Care Team ([facility] st Contact Info) Description 07/07/2024 11:00 AM CDT Office Visit Department of Allergy and Immunology in [place], [place] [address] [place] [phone] Ilya Barajas M.D. [address] [place] [phone] Urticaria Idiopathic (Primary Dx); Swelling Face; [...] = 0.6 oz pur e alcohol) Occassionally [facility] Utilities Answer Date Recorded In [...] often do you attend chur ch or pentecostalism services? More than 4 times per year [...] Answer Date Recorded PHQ-2 Score 2 04/28/2024 [facility] - Occupational [...] your living situation today? I have a [facility] place to live 04/16/2024 Education Answer Date Recorded What is the highest level of school you have completed or the highest degree you have received? Associate degree: occupational, technical, or vocational program 03/05/2022 Comments No Sex and Gender Information Value Date Recorded Sex Assigned at Female 08/18/2021 11:37 AM CDT Legal Sex Female 9:05 PM CHILD CARE GIVER Gender Identity Female 03/14/2020 12:38 PM CHILD CARE GIVER Sexual Orientation Not on file documented as [...] regular basis for hives. Try fexofenadine (generic pyam-ybt-jfzsftz Olga) 180-360 mg twice daily on a regular basis for prevention of itch and hives. Fexofenadine can help nasal allergy symptoms as well as skin itching. Fexofenadine tends to be least expensive as [employer] [facility] [facility] fexofenadine at [facility] [employer] or as Aller-Fex at [facility]. [employer] is a good place to look for inexpensive fexofenadine on-line. Fexofenadine is less likely to cause drowsiness compared to cetirizine, and hopefully it will work well for hives. If fexofenadine is not as helpful for hives, consider going back to cetirizine (generic ozsb-ukv-nrlszaz Zyrtec) 10-30 mg twice per day for suppression of itch and hives. Cetirizine can help both skin itching and nasal allergy symptoms. Cetirizine tends to be least expensive as [employer] cetirizine at [facility] [employer] or as Aller-Che at [facility]. If you do not go to [facility] [employer] or [facility], [employer] is a good place to look for inexpensive cetirizine on-line. Another reasonable option is to use fexofenadine 180-360 mg in the morning and cetirizine 10-30 mg at bedtime. For rash and itching and not controlled with regular use fexofenadine/cetirizine, add diphenhydramine (generic qnuv-foz-azpfbfp Benadryl) 25-50 mg every 6 hours as [...] (Advil or Motrin), naproxen (Aleve), Pepto-Bismol, and Holly-Olin. Acetaminophen (Tylenol) will not usually aggravate itching. [...] with nosebleeds with regular generic Flonase, try fnqg-qww-jhydoyb Flonase Sensimist 2 sprays each nostril once daily on a regular basis for control of nasal symptoms. FlonaseSensimist contains the same active ingredient as original Flonase, but is delivered in a less-drying, lower-volume, fragrance-free spray. It is only available dqxx-xbk-jtqbszh. It takes a few days tostart working, and up to several weeks to reach full effect, so it works best when used consistently. For nasal dryness or thick mucus, consider water-based, fiyx-aun-bldzroq moisturizing nasal gels orsprays, such as [place], NasoGel, or Xlear. Liquid nasal moisturizers (such as Xlear) can loosen sticky, crusted mucus and promote mucus clearance. Nasal gels (such as [place] or NasoGel) can soothe dry, irritated nasal membranes. Different people have different preferences, so try several brands. There isno ???dose?? for nasal moisturizers, so you can use these products as often as desired. Davr-pwb-lleiabc lubricant eyedrops or gels as needed for [...] osteoarthritis, but has an appointment with a remote sensing technician to look at possible rheumatoid arthritis or [...] deficiency. SOCIAL/ENVIRONMENTAL HISTORY The patient lives in [place], [place]. She smokes medical cannabis every day [...] nosebleeds and cetirizine aggravates drowsiness. Recommend trying yniv-ydu-vmxwspn Flonase Sensimist in place ofgeneric fluticasone nasal spray. Also reminded her to try buby-egk-bifteko water-based nasal moisturizing gels/sprays as needed. If symptoms remain poorly controlled, consider adding Astelin nasal spray. Patient Instructions Since the cetirizine causes drowsiness, try using a less-sedating antihistamine on a regular basis for hives. Try fexofenadine (generic xbzm-hqr-ugvaitl Olga) 180-360 mg twice daily on a regular basis for prevention of itch and hives. Fexofenadine can help nasal allergy symptoms as well as skin itching. Fexofenadine tends to be least expensive as [employer] Allergy Relief fexofenadine at [facility] or as Aller-Fex at [facility]. [facility] is a good place to look for inexpensive fexofenadine on-line. Fexofenadine is less likely to cause drowsiness compared to cetirizine, and hopefully it will work well for hives. If fexofenadine is not as helpful for hives, consider going back to cetirizine (generic lyab-zcu-miroraw Zyrtec) 10-30 mg twice per day for suppression of itch and hives. Cetirizine can help both skin itching and nasal allergy symptoms. Cetirizine tends to be least expensive as [employer] Allergy Relief cetirizine at [facility] or as Aller-Che at [employer]. If you do not go to [facility] [employer] or [employer], [facility] is a good place to look for inexpensive cetirizine on-line. Another reasonable option is to use fexofenadine 180-360 mg in the morning and cetirizine 10-30 mg at bedtime. For rash and itching and not controlled with regular use fexofenadine/cetirizine, add diphenhydramine (generic cpwv-fpn-hkunoom Benadryl) 25-50 mg every 6 hours as [...] ibuprofen (Advil or Motrin), naproxen (Aleve), Pepto-Bismol, andAlka-Olin. Acetaminophen (Tylenol) will not usually aggravate itching. [...] with nosebleeds with regular generic Flonase, try hqep-fqh-xyqwmfc Flonase Sensimist 2 sprays each nostril once daily on a regular basis for control of nasal symptoms. FlonaseSensimist contains the same active ingredient as original Flonase, but is delivered in a less-drying, lower-volume, fragrance-free spray. It is only available kyyq-vsr-uiohzlh. It takes a few days tostart working, and up to several weeks to reach full effect, so it works best when used consistently. For nasal dryness or thick mucus, consider water-based, bffo-qor-tgrxmzw moisturizing nasal gels orsprays, such as [place], NasoGel, or Xlear. Liquid nasal moisturizers (such as Xlear) can loosen sticky, crusted mucus and promote mucus clearance. Nasal gels (such as [place] or NasoGel) can soothe dry, irritated nasal membranes. Different people have different preferences, so try several brands. There isno ???dose?? for nasal moisturizers, so you can use these products as often as desired. Kpfe-gxj-xeuuasn lubricant eyedrops or gels as needed for [...] Infusion Department of Allergy and Immunology in [address] [phone] Ilya Barajas M.D. [facility] [place] [phone] Discharge Disposition: Home or Self Care 09/08/2024 2:30 PM CDT Comprehensive Visit Department of Neurology in [address] [phone] Ang Sommer M.B.B.S. [address] [place] [phone] Discharge Disposition: Home or Self Care 10/01/2024 9:00 AM CDT Infusion Department of Allergy and Immunology in [place] [address] [place] [phone] Ilya Barajas M.D. [address] [place] [phone] Discharge Disposition: Home or Self Care 10/29/2024 9:00 AM CDT Infusion Department of Allergy and Immunology in [place] [address] [place] [phone] Ilya Barajas M.D. [address] [place] [phone] Discharge Disposition: Home or Self Care 01/22/2025 2:30 PM CDT Office Visit Department of Obstetrics and Gynecology in [address] [phone] Xochitl Berg M.D. [address] [place] [phone] documented as of this encounter Visit Diagnoses Diagnosis Urticaria Idiopathic- Primary Swelling Face Pompholyx Rhinitis Allergic documented in this encounter Additional Health Concerns Assessment Noted Time PHQ-9 Depression Total Score: 18 025 10:50 AM CHILD CARE GIVER documented as of this encounter Care Teams Apparel Embroidery Digitizer Relationship Specialty Start Date End Date Bela Jauregui APRN, C.N.P. [address] [place] [phone] PCP - General Family Medicine 08/11/20 documented as of this encounter
--- OUTSIDE RECORDS SUMMARY | 2024-08-27 19:14 | XMS_ITS | Encounter Summary ---
Author Organization [facility] Address [address] [place] [address] Care Team Providers Care Wood Tool Maker Name Role Phone Bela Jauregui APRN, C.N.P. Primary Care Pro vider Encounter Details Date Type Department Care Team (Late st Contact Info) Description 06/30/2024 Orders Only Department of Family Medicine in [place], [place] [address] [place] [phone] Bela Jauregui APRN, C.N.P. [address] [place] [phone] Social History Tobacco Use Types Packs/Day Years Used Date Smoking Tobacco: Never Cigarettes Qu it: 04/15/2004 Passive Smoke Exposure: Yes Smokeless Tobacco: Never Comments:I was a social smok er foe about 2 years Alcohol Use Standard Drinks/Week Comments Not Currently 2 (1 standard drink = 0.6 oz pur e alcohol) Occassionally [place] Utilities Answer Date Recorded In the past [...] How often do you attend chur or oriental orthodox services? More than 4 times per year 03/05/2022 Do you belong to any clubs o r organizations such as amish groups, unions, fraternal or athletic groups, or [...] Answer Date Recorded PHQ-2 Score 2 04/28/2024 [facility] - Occupational [...] your living situation today? I have a [facility] place to live 04/16/2024 Education Answer Date Recorded What is the highest level of school you have completed or the highest degree you have received? Associate degree: occupational, technical, or vocational program 03/05/2022 Comments No Sex and Gender Information Value Date Recorded Sex Assigned at Female 08/18/2021 11:37 AM CDT Legal Sex Female 9:05 PM CELL ASSEMBLY PINNER Gender Identity Female 03/14/2020 12:38 PM CELL ASSEMBLY PINNER Sexual Orientation Not on file documented as of this encounter Plan of Treatment Upcoming Encounters Date Type Department Care Team (Latest Contact Info) Description 09/03/2024 9:00 AM CDT Infusion Department of Allergy and Immunology in [place], [place] [address] [place] [phone] Ilya Barajas M.D. [facility] [place] [phone] Discharge Disposition: Home or Self Care 09/08/2024 2:30 PM CDT Comprehensive Visit Department of Neurology in [address] [phone] Ang Sommer M.B.BLaS. [address] [place] [phone] Discharge Disposition: Home or Self Care 10/01/2024 9:00 AM CDT Infusion Department of Allergy and Immunology in [place], [place] [address] [place] [phone] Ilya Barajas M.D. [address] [place] [phone] Discharge Disposition: Home or Self Care 10/29/2024 9:00 AM CDT Infusion Department of Allergy and Immunology in [place] [address] [place] [phone] Ilya Barajas M.D. [address] [place] [phone] Discharge Disposition: Home or Self Care 01/22/2025 2:30 PM CDT Office Visit Department of Obstetrics and Gynecology in [address] [phone] Xochitl Berg M.D. [address] [place] [phone] documented as of this encounter Visit Diagnoses Not on filedocumented in this encounter Additional Health Concerns Assessment Noted Time PHQ-9 Depression Total Score: 18 025 10:50 AM CELL ASSEMBLY PINNER documented as of this encounter Care Teams Wood Tool Maker Relationship Specialty Start Date End Date Bela Jauregui APRN, C.N.P. [address] [place] [phone] PCP - General Family Medicine 08/11/20 documented as of this encounter
[2024-08-27 19:24] LABS: Appearance Urine Clear (Clear); Bilirubin Urine Negative (Negative); Blood Urine Negative (Negative); Color Urine Yellow (Yellow); Glucose Urine Negative (Negative); Ketones Urine Negative (Negative); Leukocyte Esterase Urine Negative (Negative); Nitrite Urine Negative (Negative); Protein Urine Negative (Negative); Specific Gravity Urine <= 1.005 (1.000-1.030); Urobilinogen Urine 0.2 (0.2-1.0); pH Urine 6.5 (5.0-8.5)
[2024-08-27 19:27] LABS: Ur HCG Qualitative* Negative (Negative)
[2024-08-27] MEDS: 0.9 % SODIUM CHLORIDE 1000 ml 1,000 ML IV (19:38)
[2024-08-27 19:41] LABS: Basophils Absolute Auto 0.04 K/uL (0.00-0.30); Basophils Percent Auto 0.5 % (0.0-3.0); Eosinophils Absolute Auto 0.09 K/uL (0.00-0.50); Eosinophils Percent Auto 1.2 % (0.0-7.0); Hematocrit 40.9 % (33.0-51.0); Hemoglobin* 13.5 gm/dL (12.0-16.0); Immature Granulocytes Abs Auto 0.01 K/uL (0.00-0.30); Immature Granulocytes Pct Auto 0.1 %; Lymphocytes Absolute Auto 2.99 K/uL (0.90-2.90); Lymphocytes Percent Auto 40.8 % (20-44); Mean Corpuscular HGB Conc 33 gm/dL (32-36); Mean Corpuscular Hemoglobin 30 pg (26-34); Mean Corpuscular Volume 91 fL (80-100); Monocytes Percent Auto 10.1 % (0.0-11.0); Neutrophils Absolute Auto 3.45 K/uL (1.7-7.0); Neutrophils Percent Auto 47.3 % (42.0-72.0); Platelet Count* 269 K/uL (140-440); RDW Coefficient of Variation % 12.1 % (11.5-15.5); White Blood Count* 7.32 K/uL (4.50-11.00)
[2024-08-27] MEDS: KETOROLAC 15 MG/ML inj IVP (19:44)
[2024-08-27] MEDS: MORPHINE 4 MG/ML INJ IVP (19:46)
[2024-08-27 19:48] LABS: Slide Review Reflex No
[2024-08-27 19:54] LABS: Albumin* 4.7 g/dL (3.3-5.0); Chloride* 103 mmol/L (96-114)
[2024-08-27 19:55] LABS: Potassium* 3.3 mmol/L (3.6-5.1); Sodium* 137 mmol/L (135-149)
[2024-08-27 19:57] LABS: Blood Urea Nitrogen* 13 mg/dL (5-24); Creatinine* 0.7 mg/dL (0.5-1.5); Est. Creatinine Clearance* 76.89; Estimated Glomerular Filt Rate 106 ml/min
[2024-08-27 19:58] LABS: Alanine Aminotransferase* 12 U/L (4-35); Alkaline Phosphatase* 65 U/L (40-150); Anion Gap 9 mEq/L (7-15); Aspartate Amino Transferase* 22 U/L (12-35); Bilirubin Direct* 0.3 mg/dL (0.0-0.5); Bilirubin Total* 0.7 mg/dL (0.1-1.5); Calcium* 9.3 mg/dL (8.4-10.6); Carbon Dioxide* 25 mmol/L (20-32); Glucose* 81 mg/dL (60-115); Lipase* 404 U/L (23-300); Total Protein* 7.6 g/dL (6.0-8.3)
[2024-08-27 20:18] LABS: C Reactive Protein* < 0.5 mg/dL (0.5-1.0)
[2024-08-27 20:19] LABS: RBC Urine 0-2 (0-2); Squamous Epithelial Cell Urine Few (None-Few); WBC Urine 0-2 (0-5)
== END 2024-08-27 21:04 | disposition home or self-care (01) ==
PROVIDERS: Emergency Provider Emergency Medicine
DX: R10.32 Left lower quadrant pain (principal)
CPT/HCPCS: 36415; 74177; 80053; 80076; 81001; 81025; 83690; 85025; 86140; 96374; 96375; 99284; J1885; J2270; J7030; Q9967